=== PATIENT | male | born 1950 | race Caucasian/White ===

== ENCOUNTER → 2017-11-04 16:08 | Outpatient (CLI) | payer MEDICARE, OTHER, SELFPAY ==
[2017-11-04 17:34] LABS: BUN 21 mg/dL (7-18); Creatinine, Serum 1.16 mg/dL (0.70-1.30); Glucose 85 mg/dL (74-106)
[2017-11-04 17:35] LABS: ALB/GLOB Ratio 1.2 RATIO (0.9-2.4); AST(SGOT) 53 U/L (15-37); Alanine Aminotransfer ALT/SGPT 44 U/L (16-61); Albumin, Serum 3.8 g/dL (3.2-5.0); Alkaline Phosphatase 102 U/L (45-117); Anion Gap 7 (5-15); BUN/Creat Ratio 18.1 RATIO (10-20); Calcium,Total 8.7 mg/dL (8.5-10.1); Chloride 109 mmol/L (98-107); EST Glomerular Filtration Rate 67 mL/min (>60); Est Glom Filt Rate - Afr Amer 81 mL/min (>60); Globulin 3.1 g/dL (2.2-4.2); Potassium 4.2 mmol/L (3.5-5.1); Protein, Total 6.9 g/dL (6.4-8.2); Sodium Level 141 mmol/L (136-145); Thyroid Stim Hormone (TSH) 3.73 uIU/mL (0.358-3.74)
[2017-11-04 17:37] LABS: Vitamin D,25 Hydroxy 13.9 ng/mL (29.95-100.01)
[2017-11-04 17:56] LABS: Absolute Neutrophil Count 4.7 X10^3/uL (2.0-7.7); Basophil# 0.05 X10^3/uL; Basophil% 0.7 % (0-1); Eosinophil# 0.22 X10^3/uL; Eosinophils% 3.1 % (0-5); Hematocrit 51.4 % (40-54); Lymphocyte % 19.5 % (19-41); Mean Corp Hgb Conc 35.2 g/gl (32-36); Mean Corpuscular Hgb 29.5 pg (27.0-32.0); Mean Corpuscular Volume 83.8 fL (80-94); Mean Platelet Vol. 10.6 fl (6.2-12.0); Monocyte# 0.75 X10^3/uL; Monocyte% 10.4 % (0-10); Neutrophil # 4.73 X10^3/uL (2.7-7.7); Neutrophil % 65.7 % (47-70); Platelet Count 208 K/mm3 (150-450); RBC Distribution Width SD 42.9 fl (35.1-43.9); Red Blood Count 6.13 M/mm3 (4.6-6.2); White Blood Count 7.2 K/mm3 (4.4-11.0)
[2017-11-04 18:04] LABS: Hemoglobin 18.1 g/dl (13.0-16.5); POSITIVE COUNT NO; POSITIVE DIFFERENTIAL NO; POSITIVE MORPHOLOGY NO
== END ==
PROVIDERS: Family Provider Family Medicine Geriatric Medicine; PCP Family Medicine Geriatric Medicine; Visit Provider Family Medicine Geriatric Medicine
DX: E23.6 Other disorders of pituitary gland (principal); E55.9 Vitamin D deficiency, unspecified; R53.83 Other fatigue
CPT/HCPCS: 36415; 80053; 82306; 84403; 84443; 85025

== ENCOUNTER → 2017-11-12 06:56 | Outpatient (CLI) | payer MEDICARE, OTHER, SELFPAY ==
--- NOTE | 2017-11-12 07:02 | ECHOD_ITS ---
Reason For Study: ATRIAL SEPTAL DEFECT Left Ventricle Normal LV size. Left ventricular systolic function is normal. The estimated ejection fraction is 65 %. Unable to assess diastolic dysfunction. No regional wall motion abnormalities noted. Right Ventricle Normal RV size. Normal systolic function. Atria The left atrium is mildly enlarged. Normal right atrium. No doppler evidence for ASD. Mitral Valve There is no mitral annular calcification. Normal mitral valve. Trivial mitral valve insufficiency. Tricuspid Valve Normal tricuspid valve. Trivial tricuspid valve insufficiency. Right ventricular systolic pressure estimated to be 27 mmHg. Aortic Valve Trisinus/trileaflet aortic valve. Normal aortic valve. Pulmonic Valve Normal pulmonic valve. Trivial pulmonic valve insufficiency. Great Vessels Borderline enlarged ascending aorta. Pericardium/Pleural No pericardial effusion. MMode/2D Measurements & Calculations LVIDd: 4.9 cm IVSd: 0.99 cm Ao root diam: 3.6 cm LVIDs: 3.3 cm LVPWd: 1.1 cm LA dimension: 4.2 cm RVDd: 3.7 cm FS: 33.5 % LAV(MOD-bp): 36.7 ml LA A4 area: 15.3 cm2 RA A4 area: 15.9 cm2 LAV(MOD-bp) Indexed: 15.8 ml/m2 LAV(MOD-sp2): 29.9 ml LAV(MOD-sp4): 39.0 ml Doppler Measurements & Calculations MV E max thai: 79.3 cm/sec Lat Peak E' Thai: 6.6 cm/sec Med Peak E' Thai: 6.7 cm/sec MV A max thai: 85.8 cm/sec E/E' lat: 11.9 E/E' med: 11.8 MV E/A: 0.93 Ao V2 max: 157.3 cm/sec LV V1 max: 110.4 cm/sec PA V2 max: 121.8 cm/sec Ao max P.9 mmHg LV V1 max P.9 mmHg TR max thai: 244.5 cm/sec TR max P.0 mmHg Interpretation Summary Left ventricular systolic function is normal. The estimated ejection fraction is 65 %. The left atrium is mildly enlarged. Trivial mitral valve insufficiency. Trivial tricuspid valve insufficiency. Trivial pulmonic valve insufficiency. Borderline enlarged ascending aorta. Right ventricular systolic pressure estimated to be 27 mmHg. Unable to assess diastolic dysfunction. Ordering Physician: Gianni Beckham Referring Physician: MAHENDRA KYLE CHI Performed By: Renetta Yang, STEPHANIECS, RVT
--- NOTE | 2017-11-12 12:42 | STRESSREP ---
Stress Test Report Date: 11/12/2017 Procedure: Exercise tolerance test/imaging study Indications: Chest pain Consent: Per the patient Procedure: The patient exercised on a Aric protocol for 7 minutes completing Stage II and 1 minute of Stage III achieving a peak heart rate of 141 bpm (92 % predicted maximal heart rate) with a peak blood pressure 220/98 mmHg and a peak MET capacity of 8 METs. The baseline ECG demonstrated sinus bradycardia. The peak exercise ECG demonstrated no obvious ECG changes. There were no cardiac dysrhythmias pretest, during exercise, or recovery. The functional capacity was considered average. There was no complaint of chest discomfort during exercise or recovery. The examination was discontinued secondary to dyspnea. Impression: 1. Technically adequate (percent predicted maximal heart rate greater than 85%) exercise tolerance test 2. Peak exercise ECG with no obvious ECG changes 3. No cardiac dysrhythmias pretest, during exercise, or recovery. 4. Nuclear images pending Myocardial perfusion imaging study: Technique: The patient was injected with 14.8 mCi of technetium 99m Cardiolite and subsequently rest SPECT Cardiolite nuclear imaging was obtained in the horizontal long, vertical long, and short axis views. The patient exercised on a Aric protocol for 7 minutes completing Stage II and 1 minute of Stage III achieving a peak heart rate of 141 bpm (92 % predicted maximal heart rate) with a peak blood pressure 220/98 mmHg and a peak MET capacity of 8 METs. The patient was injected with 44.3 mCi of technetium 99m Cardiolite and subsequently stress SPECT Cardiolite nuclear imaging was obtained in the horizontal long, vertical long, and short axis views. A gated Cardiolite study at peak stress was obtained. Interpretation: Rest and stress SPECT Cardiolite nuclear imaging status post realignment, normalization, and attenuation correction, demonstrates the appearance of relative uniform tracer uptake and myocardial perfusion appearing within normal limits. There is end systolic thickening and brightening. The gated Cardiolite study demonstrates myocardial thickening and inward wall motion. The reported LVEF is 63 %. Impression: 1. Rest and stress SPECT Cardiolite nuclear imaging demonstrate relative uniform tracer uptake and myocardial perfusion appearing within normal limits. 2. The gated Cardiolite study reports an LVEF of 63 %. This note was generated with TeamRockation software. It may contain incorrect words, spelling, and punctuation that were not noted in checking the note before signing.
--- NOTE | 2017-11-12 12:46 | STRESSREP_ITS ---
Stress Test Report Date: 11/12/2017 Procedure: Exercise tolerance test/imaging study Indications: Chest pain Consent: Per the patient Procedure: The patient exercised on a Aric protocol for 7 minutes completing Stage II and 1 minute of Stage III achieving a peak heart rate of 141 bpm (92 % predicted maximal heart rate) with a peak blood pressure 220/98 mmHg and a peak MET capacity of 8 METs. The baseline ECG demonstrated sinus bradycardia. The peak exercise ECG demonstrated no obvious ECG changes. There were no cardiac dysrhythmias pretest, during exercise, or recovery. The functional capacity was considered average. There was no complaint of chest discomfort during exercise or recovery. The examination was discontinued secondary to dyspnea. Impression: 1. Technically adequate (percent predicted maximal heart rate greater than 85% ) exercise tolerance test 2. Peak exercise ECG with no obvious ECG changes 3. No cardiac dysrhythmias pretest, during exercise, or recovery. 4. Nuclear images pending Myocardial perfusion imaging study: Technique: The patient was injected with 14.8 mCi of technetium 99m Cardiolite and subsequently rest SPECT Cardiolite nuclear imaging was obtained in the horizontal long, vertical long, and short axis views. The patient exercised on a Aric protocol for 7 minutes completing Stage II and 1 minute of Stage III achieving a peak heart rate of 141 bpm (92 % predicted maximal heart rate) with a peak blood pressure 220/98 mmHg and a peak MET capacity of 8 METs. The patient was injected with 44.3 mCi of technetium 99m Cardiolite and subsequently stress SPECT Cardiolite nuclear imaging was obtained in the horizontal long, vertical long, and short axis views. A gated Cardiolite study at peak stress was obtained. Interpretation: Rest and stress SPECT Cardiolite nuclear imaging status post realignment, normalization, and attenuation correction, demonstrates the appearance of relative uniform tracer uptake and myocardial perfusion appearing within normal limits. There is end systolic thickening and brightening. The gated Cardiolite study demonstrates myocardial thickening and inward wall motion. The reported LVEF is 63 %. Impression: 1. Rest and stress SPECT Cardiolite nuclear imaging demonstrate relative uniform tracer uptake and myocardial perfusion appearing within normal limits. 2. The gated Cardiolite study reports an LVEF of 63 %. This note was generated with Joyentation software. It may contain incorrect words, spelling, and punctuation that were not noted in checking the note before signing.
--- NOTE | 2017-11-13 05:50 | LEAS_ITS ---
Arterial Study - Arterial Study Arterial Study: Bilateral lower extremity noninvasive arterial exam at rest Patient with complaint of claudication and toe numbness left greater than right Right lower extremity The right PT and DP ankle-brachial indices at rest are 1.2 and 1.05 respectively with a digital index of 1.03. The right posterior tibial and dorsalis pedis Doppler waveforms are triphasic. Volume pulse recordings do not demonstrate amplification at the calf the ankle and digital waveforms however are well maintained. Left lower extremity. The left PT and DP ankle-brachial indices at rest are 1.13 and 1.07 respectively with a digital index of 0.94. The left posterior tibial and dorsalis pedis waveforms are triphasic. Volume pulse recordings do not demonstrate application the calf but the ankle and digital waveforms are well maintained. Impression Normal bilateral lower examined noninvasive arterial exam at rest with well- maintained digital indices and waveforms Nigel Ho M.D., F.A.C.S.
== END ==
PROVIDERS: Family Provider Family Medicine Geriatric Medicine; PCP Family Medicine Geriatric Medicine; Visit Provider Internal Medicine Cardiovascular Disease
DX: I51.0 Cardiac septal defect, acquired (principal); I73.9 Peripheral vascular disease, unspecified; I10 Essential (primary) hypertension; E78.5 Hyperlipidemia, unspecified; R06.02 Shortness of breath; Z79.899 Other long term (current) drug therapy
CPT/HCPCS: 78452; 93017; 93306; 93923; A9500; A4216

== ENCOUNTER → 2017-12-05 15:52 | Outpatient (CLI) | payer MEDICARE, OTHER, SELFPAY ==
--- NOTE | 2017-12-05 16:10 | CT_ITS ---
STUDY: CT ABDOMEN AND PELVIS WITH CONTRAST REASON FOR EXAM: Male, 67 years old. Right-sided pain RADIATION DOSAGE (If Supplied By Facility): CTDIvol = ( 18.07 ) mGy, DLP = ( 1252.85 ) mGycm TECHNIQUE: Transaxial images were obtained from the dome of the diaphragm to the symphysis pubis without oral contrast. 100ML ml of Isovue 300 contrast was administered. Sagittal and coronal images were reconstructed. Individualized dose optimization techniques were used for this CT. COMPARISON: None. FINDINGS: The visualized lung bases are clear. The visualized portions of the heart and pericardium are within normal limits. There are no calcified gallstones present. The liver is within normal limits. There are no suspicious hepatic lesions. The spleen is normal in size. The pancreas is within normal limits. The adrenal glands are within normal limits. There are no obstructing renal stones. There is no hydronephrosis. There is a cyst in the left kidney. Normal visualized stomach. There is no bowel obstruction or inflammation. The appendix is visualized and appears normal. The aorta is normal in caliber. There is no abdominal or pelvic free air, free fluid, fluid collection or lymphadenopathy. There are no destructive osseous lesions. CT/Abdomen/Pelvis WITH Contrast IMPRESSION: No acute abdominal or pelvic pathology. Electronically Signed: Pankaj Garrett, at 18:49 EDT Tel , Service support ,
[2017-12-05 16:14] LABS: Eosinophils% 2.7 % (0-5); Hematocrit 49.3 % (40-54); Hemoglobin 17.4 g/dl (13.0-16.5); Lymphocyte % 23.8 % (19-41); Mean Corp Hgb Conc 35.3 g/gl (32-36); Mean Corpuscular Hgb 29.3 pg (27.0-32.0); Mean Platelet Vol. 10.3 fl (6.2-12.0); Monocyte% 9.7 % (0-10); POSITIVE COUNT NO; POSITIVE DIFFERENTIAL NO; POSITIVE MORPHOLOGY NO; Platelet Count 204 K/mm3 (150-450); RBC Distribution Width CV 12.7 % (11.6-14.6); RBC Distribution Width SD 38.8 fl (35.1-43.9); Red Blood Count 5.94 M/mm3 (4.6-6.2); White Blood Count 6.4 K/mm3 (4.4-11.0)
[2017-12-05 16:15] LABS: Absolute Lymphocyte Count 1.52 X10^3/ul (0.83-4.51); Basophil# 0.03 X10^3/uL; Basophil% 0.5 % (0-1); Eosinophil# 0.17 X10^3/uL; Lymphocyte # 1.52 X10^3/ul (4.0); Monocyte# 0.62 X10^3/uL; Neutrophil # 4.03 X10^3/uL (2.7-7.7)
[2017-12-05 16:35] LABS: ALB/GLOB Ratio 1.2 RATIO (0.9-2.4); AST(SGOT) 66 U/L (15-37); Alanine Aminotransfer ALT/SGPT 66 U/L (16-61); Albumin, Serum 3.8 g/dL (3.2-5.0); Alkaline Phosphatase 103 U/L (45-117); Anion Gap 5 (5-15); BUN 19 mg/dL (7-18); BUN/Creat Ratio 18.3 RATIO (10-20); Calcium,Total 9.3 mg/dL (8.5-10.1); Chloride 108 mmol/L (98-107); Creatinine, Serum 1.04 mg/dL (0.70-1.30); EST Glomerular Filtration Rate 76 mL/min (>60); Est Glom Filt Rate - Afr Amer 92 mL/min (>60); Globulin 3.2 g/dL (2.2-4.2); Glucose 93 mg/dL (74-106); Potassium 4.7 mmol/L (3.5-5.1); Sodium Level 139 mmol/L (136-145)
[2017-12-07 10:59] LABS: H. Pylori Antibody (IgG) 3.92 (0.00-0.79)
== END ==
PROVIDERS: Family Provider Family Medicine Geriatric Medicine; PCP Family Medicine Geriatric Medicine; Visit Provider Family Medicine Geriatric Medicine
DX: R10.9 Unspecified abdominal pain (principal)
CPT/HCPCS: 36415; 74177; 80053; 85025; 86677; Q9967

== ENCOUNTER → 2017-12-06 11:04 | Outpatient (CLI) | payer MEDICARE, OTHER, SELFPAY ==
--- NOTE | 2017-12-06 11:09 | US_ITS ---
STUDY: ABDOMINAL ULTRASOUND - RIGHT UPPER QUADRANT REASON FOR VISIT: Male, 67 years old. Right upper quadrant pain. Nausea. TECHNIQUE: Ultrasound evaluation of the right upper quadrant was performed with real-time and static hull-scale imaging. TECHNICAL QUALITY: Adequate. COMPARISON: Comparison is made with prior CT scan the abdomen dated December 05, 2017. FINDINGS: Liver: The liver measures 16.9 cm. There is increased echogenicity consistent with fatty infiltration. The bile ducts are within normal limits. There is hepatic color flow. The direction of portal flow is hepatopetal. There is no demonstrated mass lesion. Gallbladder: Normal distended gallbladder. The gallbladder wall measures 1.5 mm. There is a negative sonographic Pimentel's sign. There is no pericholecystic fluid. There are no gallstones. Common Bile Duct (C.B.D.): The common bile duct measures 2.8 mm. Pancreas: Normal size of the head, body and tail of the pancreas. There is normal echogenicity of the pancreas. There is no demonstrated pancreatic mass or cyst. Right Kidney: Normal size of the right kidney. The right kidney measures 11.8 cm x 5.2 cm x 6.5 cm. Normal renal cortex. The right cortex measures 1.8 cm. There is no demonstrated renal mass or cyst. There is no right hydronephrosis. US/Abdomen Limited IMPRESSION: Fatty infiltration of the liver. Electronically Signed: Sam De Los Santos MD at 12:27 EDT Tel [phone], Service support ,
== END ==
PROVIDERS: Family Provider Family Medicine Geriatric Medicine; PCP Family Medicine Geriatric Medicine; Visit Provider Family Medicine Geriatric Medicine
DX: K76.0 Fatty (change of) liver, not elsewhere classified (principal)
CPT/HCPCS: 76705

== ENCOUNTER → 2018-01-16 16:01 | Outpatient (CLI) | payer MEDICARE, OTHER, SELFPAY ==
--- NOTE | 2018-01-16 16:06 | RAD_ITS ---
STUDY: X-RAY - ABDOMEN/PELVIS REASON FOR EXAM: Male, 67 years old. Abdominal pain. Nausea/vomiting. TECHNIQUE: For frontal images of the abdomen were obtained. COMPARISON: None. FINDINGS: Normal visualized lung bases. There is an unremarkable bowel gas pattern. There is no demonstrated free abdominal air. The visualized liver, spleen and kidneys are grossly normal in size and morphology. Normal soft tissue structures. Normal visualized osseous structures. RAD/Abd Inc Decub and/or Erect IMPRESSION: Nonspecific bowel gas pattern. Electronically Signed: Purvi Patrick MD at 16:22 EDT Tel , Service support ,
== END ==
PROVIDERS: Family Provider Family Medicine Geriatric Medicine; PCP Family Medicine Geriatric Medicine; Visit Provider Family Medicine Geriatric Medicine
DX: R10.9 Unspecified abdominal pain (principal)
CPT/HCPCS: 74019

== ENCOUNTER → 2018-01-21 08:07 | Outpatient (CLI) | payer MEDICARE, OTHER, SELFPAY ==
--- NOTE | 2018-01-21 08:10 | RAD_ITS ---
STUDY: AIR-CONTRAST UPPER GI SERIES AND SMALL BOWEL FOLLOW-THROUGH EXAMINATION. REASON FOR EXAM: Male, 67 years old. Abdominal pain and tenderness. History of positive H. pylori. FLUOROSCOPY TIME (if supplied): (1:36) minutes/seconds TECHNIQUE: The patient ingested barium. Multiple images of the esophagus, stomach and duodenum were obtained. Following this, a small bowel follow-through examination was performed. COMPARISON: None. FINDINGS: The esophagus is unremarkable. There is no evidence of a obstruction. No mass lesion is seen. There is no evidence of gastroesophageal reflux. The stomach and duodenum are unremarkable. There is no evidence of ulceration. A small bowel follow-through examination was then performed. The transit time is normal. There is no evidence of intrinsic or extrinsic small bowel disease. The terminal ileum is unremarkable. RAD/Upper GI/w Small Bowel IMPRESSION: Unremarkable examination. Electronically Signed: Sam De Los Santos MD at 15:27 EDT Tel [phone], Service support ,
== END ==
PROVIDERS: Family Provider Family Medicine Geriatric Medicine; PCP Family Medicine Geriatric Medicine; Visit Provider Family Medicine Geriatric Medicine
DX: R10.13 Epigastric pain (principal)
CPT/HCPCS: 74249

== ENCOUNTER → 2018-04-15 15:55 | Outpatient (CLI) | payer MEDICARE, OTHER, SELFPAY ==
--- NOTE | 2018-04-15 16:29 | RAD_ITS ---
STUDY: X-RAY - ABDOMEN/PELVIS REASON FOR EXAM: Male, 67 years old. Pain diarrhea TECHNIQUE: 5 images AP supine and upright views of the abdomen and pelvis. COMPARISON: December 05, 2017 CT scan abdomen and pelvis CT scan abdomen and pelvis FINDINGS: Normal visualized lung bases. There is mild to moderate gas and stool in the colon. There is no demonstrated free abdominal air. The visualized liver, spleen and kidneys are grossly normal in size and morphology. Normal soft tissue structures. Normal visualized osseous structures. RAD/Abd Inc Decub and/or Erect IMPRESSION: Normal x-ray examination of the abdomen and pelvis. Electronically Signed: Alessandra Llanos MD at 16:51 EDT Tel , Service support ,
[2018-04-15 16:48] LABS: Absolute Lymphocyte Count 1.33 X10^3/ul (0.83-4.51); Absolute Neutrophil Count 2.9 X10^3/uL (2.0-7.7); Basophil# 0.03 X10^3/uL; Basophil% 0.6 % (0-1); Eosinophil# 0.28 X10^3/uL; Eosinophils% 5.5 % (0-5); Hematocrit 42.3 % (40-54); Hemoglobin 14.5 g/dl (13.0-16.5); Lymphocyte # 1.33 X10^3/ul (4.0); Mean Corp Hgb Conc 34.3 g/gl (32-36); Mean Corpuscular Hgb 29.4 pg (27.0-32.0); Mean Corpuscular Volume 85.8 fL (80-94); Mean Platelet Vol. 10.4 fl (6.2-12.0); Monocyte% 11.7 % (0-10); Neutrophil # 2.86 X10^3/uL (2.7-7.7); Neutrophil % 55.8 % (47-70); Platelet Count 211 K/mm3 (150-450); RBC Distribution Width CV 12.7 % (11.6-14.6); RBC Distribution Width SD 38.9 fl (35.1-43.9); Red Blood Count 4.93 M/mm3 (4.6-6.2); White Blood Count 5.1 K/mm3 (4.4-11.0)
[2018-04-15 16:50] LABS: POSITIVE COUNT NO; POSITIVE DIFFERENTIAL NO; POSITIVE MORPHOLOGY NO
[2018-04-15 17:13] LABS: ALB/GLOB Ratio 1.1 RATIO (0.9-2.4); AST(SGOT) 60 U/L (15-37); Alanine Aminotransfer ALT/SGPT 50 U/L (16-61); Albumin, Serum 3.6 g/dL (3.2-5.0); Alkaline Phosphatase 91 U/L (45-117); Anion Gap 5 (5-15); BUN 23 mg/dL (7-18); BUN/Creat Ratio 18.9 RATIO (10-20); Chloride 105 mmol/L (98-107); Creatinine, Serum 1.22 mg/dL (0.70-1.30); EST Glomerular Filtration Rate 63 mL/min (>60); Est Glom Filt Rate - Afr Amer 76 mL/min (>60); Globulin 3.2 g/dL (2.2-4.2); Glucose 86 mg/dL (74-106); Potassium 4.3 mmol/L (3.5-5.1); Protein, Total 6.8 g/dL (6.4-8.2); Sodium Level 139 mmol/L (136-145); Thyroid Stim Hormone (TSH) 3.63 uIU/mL (0.358-3.74)
== END ==
PROVIDERS: Family Provider Family Medicine Geriatric Medicine; PCP Family Medicine Geriatric Medicine; Referring Provider Family Medicine Geriatric Medicine; Visit Provider Family Medicine Geriatric Medicine
DX: I10 Essential (primary) hypertension (principal); R10.9 Unspecified abdominal pain
CPT/HCPCS: 36415; 74019; 80053; 84443; 85025

== ENCOUNTER → 2018-05-07 15:52 | Outpatient (CLI) | payer MEDICARE, OTHER, SELFPAY ==
[2018-05-07 17:06] LABS: Absolute Lymphocyte Count 1.31 X10^3/ul (0.83-4.51); Absolute Neutrophil Count 2.4 X10^3/uL (2.0-7.7); Basophil# 0.02 X10^3/uL; Basophil% 0.4 % (0-1); Eosinophil# 0.21 X10^3/uL; Eosinophils% 4.7 % (0-5); Hemoglobin 14.5 g/dl (13.0-16.5); Lymphocyte # 1.31 X10^3/ul (4.0); Lymphocyte % 29.1 % (19-41); Mean Corp Hgb Conc 34.5 g/gl (32-36); Mean Corpuscular Hgb 29.8 pg (27.0-32.0); Mean Corpuscular Volume 86.2 fL (80-94); Mean Platelet Vol. 10.6 fl (6.2-12.0); Monocyte# 0.53 X10^3/uL; Monocyte% 11.8 % (0-10); Neutrophil # 2.41 X10^3/uL (2.7-7.7); Neutrophil % 53.6 % (47-70); Platelet Count 226 K/mm3 (150-450); RBC Distribution Width CV 12.4 % (11.6-14.6); RBC Distribution Width SD 38.6 fl (35.1-43.9); Red Blood Count 4.87 M/mm3 (4.6-6.2); White Blood Count 4.5 K/mm3 (4.4-11.0)
[2018-05-07 17:10] LABS: ALB/GLOB Ratio 1.3 RATIO (0.9-2.4); AST(SGOT) 52 U/L (15-37); Alanine Aminotransfer ALT/SGPT 52 U/L (16-61); Albumin, Serum 3.8 g/dL (3.2-5.0); Alkaline Phosphatase 92 U/L (45-117); Anion Gap 7 (5-15); BUN 18 mg/dL (7-18); BUN/Creat Ratio 14.5 RATIO (10-20); Calcium,Total 9.1 mg/dL (8.5-10.1); Chloride 108 mmol/L (98-107); Creatinine, Serum 1.24 mg/dL (0.70-1.30); EST Glomerular Filtration Rate 62 mL/min (>60); Est Glom Filt Rate - Afr Amer 75 mL/min (>60); Glucose 83 mg/dL (74-106); PSA,Total - Annual Screen 1.07 ng/mL (0.00-4.00); Potassium 4.2 mmol/L (3.5-5.1); Protein, Total 6.8 g/dL (6.4-8.2); Sodium Level 142 mmol/L (136-145); Thyroid Stim Hormone (TSH) 3.71 uIU/mL (0.358-3.74)
[2018-05-07 17:25] LABS: POSITIVE COUNT NO; POSITIVE DIFFERENTIAL NO; POSITIVE MORPHOLOGY NO
[2018-05-07 17:32] LABS: Vitamin D,25 Hydroxy 35.7 ng/mL (29.95-100.01)
== END ==
PROVIDERS: Family Provider Family Medicine Geriatric Medicine; PCP Family Medicine Geriatric Medicine; Visit Provider Family Medicine Geriatric Medicine
DX: E23.6 Other disorders of pituitary gland (principal); E55.9 Vitamin D deficiency, unspecified; R53.83 Other fatigue; Z12.5 Encounter for screening for malignant neoplasm of prostate
CPT/HCPCS: 36415; 80053; 82306; 84153; 84403; 84443; 85025; G0103

== ENCOUNTER → 2018-08-21 15:23 | Outpatient (CLI) | payer MEDICARE, OTHER, SELFPAY ==
--- NOTE | 2018-08-21 15:34 | RAD_ITS ---
STUDY: X-RAY - RIGHT KNEE REASON FOR EXAM: Male, 68 years old. Pain, osteoarthritis. TECHNIQUE: 4 view(s) of the knee, 2 of which are labeled as weightbearing. COMPARISON: None. FINDINGS: There is early lateral periarticular spurring of the medial femoral condyle. Mild cortical irregularity at the lateral margin of the proximal tibial metaphysis. Normal visualized proximal fibula. Early lateral periarticular spurring of the patella and borderline paratracheal spurring at the base of the patella. There is no demonstrated destructive osseous lesion or acute fracture. There is degenerative arthrosis of the medial femorotibial compartment with mild to moderate joint space narrowing. Normal lateral femorotibial compartment. There is mild to moderate degenerative arthrosis of the patellofemoral articulation, as well as prominent laterally. Normal proximal tibiofibular articulation. There is no demonstrated joint effusion. There is minor prepatellar and anteromedial superficial soft tissue swelling. RAD/Knee 4 or More Views IMPRESSION: Mild degenerative arthrosis of the right knee, as described. Electronically Signed: Yann Andrade MD at 12:43 EST , Service support ,
--- NOTE | 2018-08-21 15:40 | RAD_ITS ---
STUDY: X-RAY - LEFT KNEE REASON FOR EXAM: Male, 68 years old. Pain, osteoarthritis. TECHNIQUE: 4 view(s) of the knee, 2 labeled as upright. COMPARISON: None. FINDINGS: There is early periarticular spurring along the intercondylar margins of distal femur. Early periarticular spurring of the tibial plateaus and mild spurring of the lateral tibial spine Normal visualized proximal fibula. Borderline periarticular spurring at the inferolateral articular margin of the patella. There is no demonstrated destructive osseous lesion or acute fracture. There is degenerative arthrosis of the medial femorotibial compartment with moderate joint space narrowing. Normal lateral femorotibial compartment. Normal patellofemoral articulation. Normal proximal tibiofibular articulation. There is no significant joint effusion. The soft tissue structures are unremarkable. RAD/Knee 4 or More Views IMPRESSION: Mild degenerative changes of the left knee, as described. No acute osseous abnormality. Electronically Signed: Yann Andrade MD at 14:53 EST , Service support ,
--- NOTE | 2018-08-21 15:46 | RAD_ITS ---
STUDY: X-RAY - RIGHT SHOULDER REASON FOR EXAM: Male, 68 years old. Chronic shoulder pain. TECHNIQUE: 4 view(s) of the shoulder, including frontal internal and external rotation views. COMPARISON: None. FINDINGS: There is moderate degenerative arthrosis of the glenohumeral articulation. Early degenerative arthrosis of the acromioclavicular joint. Normal acromion. There is degenerative inferior periarticular spurring of the humeral head Normal soft tissues. There is no demonstrated fracture. Normal visualized pulmonary apex. RAD/Shoulder min 2 Views IMPRESSION: Degenerative arthrosis of the right glenohumeral articulation and, to a lesser degree, at the right acromioclavicular joint. Electronically Signed: Yann Andrade MD at 12:38 EST , Service support ,
--- NOTE | 2018-08-21 15:52 | RAD_ITS ---
STUDY: X-RAY - LEFT SHOULDER REASON FOR EXAM: Male, 68 years old. Chronic shoulder pain. TECHNIQUE: 4 view(s) of the shoulder, including frontal internal and external rotation views. COMPARISON: None. FINDINGS: There is moderate degenerative arthrosis of the glenohumeral articulation. Normal acromioclavicular joint. Normal acromion. There is degenerative inferior periarticular spurring of the humeral head A cluster of 1 cm round rim calcific densities projecting anterior to the proximal humeral diaphysis suggests chronic ossific bursitis. There is no demonstrated fracture. Normal visualized pulmonary apex. RAD/Shoulder min 2 Views IMPRESSION: Degenerative arthrosis of the left glenohumeral articulation with additional finding of ossific bursitis. Electronically Signed: Yann Andrade MD at 12:29 EST , Service support ,
== END ==
PROVIDERS: Family Provider Family Medicine Geriatric Medicine; PCP Family Medicine Geriatric Medicine; Referring Provider Family Medicine Geriatric Medicine; Visit Provider Family Medicine Geriatric Medicine
DX: M17.0 Bilateral primary osteoarthritis of knee (principal); M19.012 Primary osteoarthritis, left shoulder; M19.011 Primary osteoarthritis, right shoulder; M75.52 Bursitis of left shoulder
CPT/HCPCS: 73030; 73564

== ENCOUNTER → 2018-09-08 16:43 | Outpatient (CLI) | payer MEDICARE, OTHER, SELFPAY ==
--- NOTE | 2018-09-08 16:48 | RAD_ITS ---
STUDY: X-RAY - ABDOMEN/PELVIS REASON FOR EXAM: Male, 68 years old. Abdominal pain, excessive flatulence, diarrhea. TECHNIQUE: AP supine and upright views of the abdomen and pelvis on 5 images. COMPARISON: AP supine and upright views of the abdomen and pelvis on 5 images April 15, 2018; upper GI series with small bowel follow-through January 21, 2018; right upper quadrant ultrasound December 06, 2017; CT abdomen and pelvis December 05, 2017. FINDINGS: Normal visualized lung bases. There is an unremarkable bowel gas pattern. There is no demonstrated free abdominal air. The visualized liver, spleen and kidneys are grossly normal in size and morphology. Normal soft tissue structures. There are stable multilevel degenerative changes of the visualized spine as well as mild degenerative arthroses of the bilateral sacroiliac joints and pubic symphysis. RAD/Abd Inc Decub and/or Erect IMPRESSION: No demonstrated acute abnormality of the abdomen and pelvis. Electronically Signed: Yann Andrade MD at 16:50 EST , Service support ,
== END ==
PROVIDERS: Family Provider Family Medicine Geriatric Medicine; PCP Family Medicine Geriatric Medicine; Referring Provider Internal Medicine Gastroenterology; Visit Provider Internal Medicine Gastroenterology
DX: R10.9 Unspecified abdominal pain (principal); R14.0 Abdominal distension (gaseous)
CPT/HCPCS: 74019

== ENCOUNTER → 2018-11-10 15:11 | Outpatient (CLI) | payer MEDICARE, OTHER, SELFPAY ==
[2018-11-10 17:09] LABS: Absolute Lymphocyte Count 1.15 X10^3/ul (0.83-4.51); Absolute Neutrophil Count 7.9 X10^3/uL (2.0-7.7); Basophil# 0.02 X10^3/uL; Basophil% 0.2 % (0-1); Eosinophil# 0.03 X10^3/uL; Eosinophils% 0.3 % (0-5); Hematocrit 43.4 % (40-54); Hemoglobin 14.7 g/dl (13.0-16.5); Lymphocyte # 1.15 X10^3/ul (4.0); Lymphocyte % 11.7 % (19-41); Mean Corp Hgb Conc 33.9 g/gl (32-36); Mean Corpuscular Hgb 29.6 pg (27.0-32.0); Mean Corpuscular Volume 87.3 fL (80-94); Mean Platelet Vol. 10.3 fl (6.2-12.0); Monocyte# 0.71 X10^3/uL; Monocyte% 7.2 % (0-10); Neutrophil # 7.88 X10^3/uL (2.7-7.7); Neutrophil % 79.8 % (47-70); Platelet Count 254 K/mm3 (150-450); RBC Distribution Width CV 13.2 % (11.6-14.6); RBC Distribution Width SD 41.7 fl (35.1-43.9); Red Blood Count 4.97 M/mm3 (4.6-6.2); White Blood Count 9.9 K/mm3 (4.4-11.0)
[2018-11-10 17:10] LABS: POSITIVE COUNT NO; POSITIVE DIFFERENTIAL NO; POSITIVE MORPHOLOGY NO
[2018-11-10 17:24] LABS: Vitamin D,25 Hydroxy 8.8 ng/mL (29.95-100.01)
[2018-11-10 17:25] LABS: ALB/GLOB Ratio 1.2 RATIO (0.9-2.4); AST(SGOT) 42 U/L (15-37); Alanine Aminotransfer ALT/SGPT 64 U/L (16-61); Albumin, Serum 3.5 g/dL (3.2-5.0); Alkaline Phosphatase 94 U/L (45-117); Anion Gap 4 (5-15); BUN 24 mg/dL (7-18); Chloride 110 mmol/L (98-107); Creatinine, Serum 1.09 mg/dL (0.70-1.30); EST Glomerular Filtration Rate 71 mL/min (>60); Est Glom Filt Rate - Afr Amer 86 mL/min (>60); Globulin 2.9 g/dL (2.2-4.2); Glucose 107 mg/dL (74-106); Potassium 4.1 mmol/L (3.5-5.1); Protein, Total 6.4 g/dL (6.4-8.2); Sodium Level 142 mmol/L (136-145); Thyroid Stim Hormone (TSH) 1.89 uIU/mL (0.358-3.74)
== END ==
PROVIDERS: Family Provider Family Medicine Geriatric Medicine; PCP Family Medicine Geriatric Medicine; Visit Provider Family Medicine Geriatric Medicine
DX: E23.6 Other disorders of pituitary gland (principal); E55.9 Vitamin D deficiency, unspecified; R53.83 Other fatigue
CPT/HCPCS: 36415; 80053; 82306; 84403; 84443; 85025

== ENCOUNTER → 2019-05-11 16:55 | Outpatient (CLI) | payer MEDICARE, OTHER, SELFPAY ==
[2018-11-19 15:00] VITALS: BMI 29.6
[2019-05-11 17:48] LABS: Absolute Lymphocyte Count 1.41 X10^3/uL (0.83-4.51); Absolute Neutrophil Count 3.8 X10^3/uL (2.0-7.7); Basophil# 0.06 X10^3/uL; Eosinophil# 0.17 X10^3/uL; Eosinophils% 2.7 % (0-5); Lymphocyte # 1.41 X10^3/ul (4.0); Lymphocyte % 22.4 % (19-41); Mean Corp Hgb Conc 32.5 g/dL (32-36); Mean Corpuscular Hgb 27.7 pg (27.0-32.0); Mean Corpuscular Volume 85.1 fL (80-94); Mean Platelet Vol. 10.6 fl (6.2-12.0); Monocyte# 0.86 X10^3/uL; Monocyte% 13.7 % (0-10); NRBC Flagged by Analyzer 0 % (0-5); Neutrophil # 3.76 X10^3/uL (2.7-7.7); Neutrophil % 59.6 % (47-70); Platelet Count 199 K/mm3 (150-450); RBC Distribution Width CV 14.6 % (11.6-14.6); RBC Distribution Width SD 41.8 fl (35.1-43.9); Red Blood Count 6.83 M/mm3 (4.6-6.2); White Blood Count 6.3 K/mm3 (4.4-11.0)
[2019-05-11 18:11] LABS: Vitamin D,25 Hydroxy 30.8 ng/mL (29.95-100.01)
[2019-05-11 18:12] LABS: Hematocrit 58.1 % (40-54); Hemoglobin 18.9 g/dL (13.0-16.5)
[2019-05-11 18:28] LABS: ALB/GLOB Ratio 1.2 RATIO (0.9-2.4); AST(SGOT) 48 U/L (15-37); Alanine Aminotransfer ALT/SGPT 42 U/L (16-61); Albumin, Serum 3.8 g/dL (3.2-5.0); Alkaline Phosphatase 96 U/L (45-117); Anion Gap 5 (5-15); BUN 20 mg/dL (7-18); BUN/Creat Ratio 17.2 RATIO (10-20); Calcium,Total 9.3 mg/dL (8.5-10.1); Chloride 106 mmol/L (98-107); Creatinine, Serum 1.16 mg/dL (0.70-1.30); EST Glomerular Filtration Rate 66 mL/min (>60); Est Glom Filt Rate - Afr Amer 80 mL/min (>60); Globulin 3.1 g/dL (2.2-4.2); Glucose 92 mg/dL (74-106); PSA,Total - Annual Screen 2.19 ng/mL (0.00-4.00); Potassium 4.4 mmol/L (3.5-5.1); Protein, Total 6.9 g/dL (6.4-8.2); Sodium Level 136 mmol/L (136-145); Thyroid Stim Hormone (TSH) 3.03 uIU/mL (0.358-3.74)
== END ==
PROVIDERS: Family Provider Family Medicine Geriatric Medicine; PCP Family Medicine Geriatric Medicine; Visit Provider Family Medicine Geriatric Medicine
DX: E23.6 Other disorders of pituitary gland (principal); E55.9 Vitamin D deficiency, unspecified; I10 Essential (primary) hypertension; Z12.5 Encounter for screening for malignant neoplasm of prostate
CPT/HCPCS: 36415; 80053; 82306; 84153; 84403; 84443; 85025; G0103

== ENCOUNTER → 2019-06-08 16:42 | Outpatient (CLI) | payer MEDICARE, OTHER, SELFPAY ==
[2018-11-19 15:00] VITALS: BMI 29.6
[2019-06-08 17:40] LABS: Absolute Lymphocyte Count 1.67 X10^3/uL (0.83-4.51); Basophil# 0.05 X10^3/uL; Basophil% 0.5 % (0-1); Eosinophil# 0.11 X10^3/uL; Eosinophils% 1.1 % (0-5); Lymphocyte # 1.67 X10^3/ul (4.0); Mean Corp Hgb Conc 33.1 g/dL (32-36); Mean Corpuscular Hgb 28.1 pg (27.0-32.0); Mean Corpuscular Volume 84.9 fL (80-94); Mean Platelet Vol. 10.1 fl (6.2-12.0); Monocyte# 0.94 X10^3/uL; Monocyte% 9.6 % (0-10); NRBC Flagged by Analyzer 0 % (0-5); Neutrophil # 6.97 X10^3/uL (2.7-7.7); Neutrophil % 71.1 % (47-70); Platelet Count 295 K/mm3 (150-450); RBC Distribution Width CV 13.7 % (11.6-14.6); RBC Distribution Width SD 40.8 fl (35.1-43.9); Red Blood Count 6.55 M/mm3 (4.6-6.2); White Blood Count 9.8 K/mm3 (4.4-11.0)
[2019-06-08 18:26] LABS: Hematocrit 55.6 % (40-54); Hemoglobin 18.4 g/dL (13.0-16.5)
[2019-06-09 11:47] LABS: Pathologist Review Reviewed
== END ==
PROVIDERS: Family Provider Family Medicine Geriatric Medicine; PCP Family Medicine Geriatric Medicine; Visit Provider Family Medicine Geriatric Medicine
DX: I10 Essential (primary) hypertension (principal); R68.89 Other general symptoms and signs
CPT/HCPCS: 36415; 85025

== ENCOUNTER → 2019-07-09 16:17 | Outpatient (CLI) | payer MEDICARE, OTHER, SELFPAY ==
[2018-11-19 15:00] VITALS: BMI 29.6
[2019-07-09 16:58] LABS: Absolute Lymphocyte Count 1.46 X10^3/uL (0.83-4.51); Absolute Neutrophil Count 3.7 X10^3/uL (2.0-7.7); Basophil# 0.04 X10^3/uL; Basophil% 0.7 % (0-1); Eosinophil# 0.14 X10^3/uL; Eosinophils% 2.4 % (0-5); Hematocrit 52.4 % (40-54); Hemoglobin 17.3 g/dL (13.0-16.5); Lymphocyte # 1.46 X10^3/ul (4.0); Lymphocyte % 24.6 % (19-41); Mean Corpuscular Hgb 28.3 pg (27.0-32.0); Mean Corpuscular Volume 85.6 fL (80-94); Monocyte# 0.55 X10^3/uL; Monocyte% 9.3 % (0-10); NRBC Flagged by Analyzer 0 % (0-5); Neutrophil # 3.72 X10^3/uL (2.7-7.7); Neutrophil % 62.5 % (47-70); Platelet Count 195 K/mm3 (150-450); RBC Distribution Width CV 13.2 % (11.6-14.6); RBC Distribution Width SD 40.8 fl (35.1-43.9); Red Blood Count 6.12 M/mm3 (4.6-6.2); White Blood Count 5.9 K/mm3 (4.4-11.0)
== END ==
PROVIDERS: Family Provider Family Medicine Geriatric Medicine; PCP Family Medicine Geriatric Medicine; Visit Provider Family Medicine Geriatric Medicine
DX: I10 Essential (primary) hypertension (principal); R68.89 Other general symptoms and signs
CPT/HCPCS: 36415; 85025

== ENCOUNTER → 2019-08-31 10:17 | Outpatient (CLI) | payer MEDICARE, OTHER, SELFPAY ==
[2018-11-19 15:00] VITALS: BMI 29.6
--- NOTE | 2019-08-31 10:22 | RAD_ITS ---
STUDY: X-RAY - PELVIS REASON FOR EXAM: Male, 69 years old. BILATERAL HIP PAIN, HX ARTHRITIS. TECHNIQUE: One view of the pelvis was obtained. COMPARISON: None. FINDINGS: There is a non-specific bowel gas pattern. Normal visualized soft tissue structures. Normal bilateral iliac wings, sacroiliac joints and visualized sacrum. Normal visualized bilateral superior and inferior pubic rami. Normal pubic symphysis. Normal ischial tuberosities. Normal visualized right femoral head. Normal right acetabulum. Normal right hip joint. Normal visualized left femoral head. Normal left acetabulum. Normal left hip joint. RAD/Pelvis 1 or 2 Views IMPRESSION: Normal x-ray examination of the pelvis. Electronically Signed: Cullen Swann MD at 21:28 EST , Service support ,
[2019-08-31 12:14] LABS: Erythrocyte Sedimentation Rate 3 mm/hr (0-20)
[2019-08-31 12:20] LABS: Absolute Lymphocyte Count 1.43 X10^3/uL (0.83-4.51); Absolute Neutrophil Count 7.6 X10^3/uL (2.0-7.7); Basophil# 0.04 X10^3/uL; Basophil% 0.4 % (0-1); Eosinophil# 0.04 X10^3/uL; Eosinophils% 0.4 % (0-5); Hemoglobin 16.6 g/dL (13.0-16.5); Lymphocyte # 1.43 X10^3/ul (4.0); Lymphocyte % 13.6 % (19-41); Mean Corp Hgb Conc 33.2 g/dL (32-36); Mean Corpuscular Hgb 28.6 pg (27.0-32.0); Mean Corpuscular Volume 86.1 fL (80-94); Mean Platelet Vol. 10.1 fl (6.2-12.0); Monocyte% 8.6 % (0-10); NRBC Flagged by Analyzer 0 % (0-5); Neutrophil # 7.61 X10^3/uL (2.7-7.7); Neutrophil % 72.5 % (47-70); Platelet Count 237 K/mm3 (150-450); RBC Distribution Width CV 14.5 % (11.6-14.6); RBC Distribution Width SD 43.8 fl (35.1-43.9); Red Blood Count 5.81 M/mm3 (4.6-6.2); White Blood Count 10.5 K/mm3 (4.4-11.0)
[2019-08-31 12:36] LABS: ALB/GLOB Ratio 1.2 RATIO (0.9-2.4); AST(SGOT) 35 U/L (15-37); Alanine Aminotransfer ALT/SGPT 53 U/L (16-61); Albumin, Serum 3.7 g/dL (3.2-5.0); Alkaline Phosphatase 78 U/L (45-117); Anion Gap 5 (5-15); BUN 23 mg/dL (7-18); BUN/Creat Ratio 21.7 RATIO (10-20); CRP < 2.90 mg/L (0.0-3.0); Calcium,Total 9.8 mg/dL (8.5-10.1); Chloride 106 mmol/L (98-107); Creatinine, Serum 1.06 mg/dL (0.70-1.30); EST Glomerular Filtration Rate 74 mL/min (>60); Est Glom Filt Rate - Afr Amer 89 mL/min (>60); Globulin 3.2 g/dL (2.2-4.2); Glucose 88 mg/dL (74-106); Potassium 3.8 mmol/L (3.5-5.1); Protein, Total 6.9 g/dL (6.4-8.2); Rheumatoid Factor < 10.0 IU/mL (<15); Sodium Level 139 mmol/L (136-145)
[2019-08-31 13:19] LABS: Hepatitis B Surface Antibody Non-Reactive; Hepatitis B Surface Antigen Non-Reactive (Nonreactive); Hepatitis C Antibody Non-Reactive (Nonreactive)
[2019-09-01 17:02] LABS: ANTINUCLEAR ANTIBODIES DIRECT Negative (Negative)
[2019-09-04 16:48] LABS: CCP IgG Antibodies 7 units (0-19); HLA B27 Negative (.); Hepatitis B Core AB IgM Negative (Negative)
== END ==
PROVIDERS: PCP Family Medicine Geriatric Medicine; Referring Provider Internal Medicine Rheumatology; Visit Provider Internal Medicine Rheumatology
DX: M06.4 Inflammatory polyarthropathy (principal); M21.6X2 Other acquired deformities of left foot; M21.6X1 Other acquired deformities of right foot; F41.9 Anxiety disorder, unspecified; F32.9 Major depressive disorder, single episode, unspecified; I10 Essential (primary) hypertension; N40.1 Benign prostatic hyperplasia with lower urinary tract symptoms
CPT/HCPCS: 36415; 72170; 80053; 81374; 85025; 85652; 86038; 86140; 86200; 86431; 86705; 86706; 86803; 87340

== ENCOUNTER 2019-09-08 10:17 | Emergency (ER) | payer MEDICARE, OTHER, SELFPAY ==
[2018-11-19 15:00] VITALS: BMI 29.6
[2019-09-08 10:18] VITALS: BP 145/81; PULSE 57; RESP 16; TEMP 36.6; O2SAT 98; BMI 29.1
--- NOTE | 2019-09-08 10:42 | CT_ITS ---
STUDY: CT ABDOMEN AND PELVIS WITH CONTRAST REASON FOR EXAM: Male, 69 years old. RLQ PAIN SINCE THIS A.M., EMISSIO X 2 RADIATION DOSAGE (If Supplied By Facility): CTDIvol = ( 15.78 ) mGy, DLP = ( 1175.34 ) mGycm TECHNIQUE: Transaxial images were obtained from the dome of the diaphragm to the symphysis pubis with oral contrast. Oral and amp; IV Gastrografin and amp; 100mL Isovue-300 was administered. Sagittal and coronal images were reconstructed. Individualized dose optimization techniques were used for this CT. COMPARISON: Comparison is made with prior examination dated December 05, 2017. FINDINGS: Minimal degree of increased linear markings at the lung bases suggestive of bibasilar atelectasis. The visualized portions of the heart are within normal limits. There is decreased attenuation of the liver consistent with steatosis. Normal gallbladder and extrahepatic biliary system. There are multiple benign calcified granulomata of the spleen. Normal pancreas. Normal bilateral adrenal glands. Normal right kidney. Stable 2.5 cm cyst in the upper pole of the left kidney. There is a small hiatal hernia. Normal small intestine. Normal colon. The appendix is visualized and appears normal. Normal abdominal aorta. Normal inferior vena cava. Normal retroperitoneum. Normal urinary bladder. There is enlargement of the prostate gland. It measures 4.9 cm by 5.6 cm. Prostatic calcification. Small umbilical hernia containing a portion of a small bowel loop. Minimal increased markings are seen in the surrounding peritoneal fat. Clinical correlation is recommended. There are degenerative changes of the visualized lumbar spine. Mild loss of height of the superior endplate of the L1 vertebrae. CT/Abdomen/Pelvis WITH Contrast IMPRESSION: Fatty infiltration of the liver. Stable left renal cysts. Small umbilical hernia containing a portion of a small bowel loop with increased markings in the surrounding peritoneal fat. Clinical correlation is recommended. Electronically Signed: Sam De Los Santos, at 12:47 EST , Service support ,
[2019-09-08] MEDS: Morphine 4 MG/ML Syringe IV (11:03)
[2019-09-08] MEDS: Ondansetron 4 MG/2 ML Vial IV (11:03)
[2019-09-08] MEDS: 0.9% Normal Saline 1,000 ML 1000 ML IV (11:03)
[2019-09-08 11:12] LABS: Absolute Lymphocyte Count 1.03 X10^3/uL (0.83-4.51); Absolute Neutrophil Count 4.9 X10^3/uL (2.0-7.7); Basophil# 0.04 X10^3/uL; Basophil% 0.6 % (0-1); Eosinophil# 0.11 X10^3/uL; Eosinophils% 1.6 % (0-5); Hematocrit 44.8 % (40-54); Hemoglobin 15.1 g/dL (13.0-16.5); Lymphocyte # 1.03 X10^3/ul (4.0); Lymphocyte % 14.8 % (19-41); Mean Corp Hgb Conc 33.7 g/dL (32-36); Mean Corpuscular Hgb 29.6 pg (27.0-32.0); Mean Corpuscular Volume 87.8 fL (80-94); Mean Platelet Vol. 9.7 fl (6.2-12.0); Monocyte# 0.81 X10^3/uL; Monocyte% 11.6 % (0-10); NRBC Flagged by Analyzer 0 % (0-5); Neutrophil # 4.92 X10^3/uL (2.7-7.7); Neutrophil % 70.7 % (47-70); Platelet Count 174 K/mm3 (150-450); RBC Distribution Width CV 14.3 % (11.6-14.6); RBC Distribution Width SD 45.5 fl (35.1-43.9)
[2019-09-08 11:30] LABS: ALB/GLOB Ratio 1.2 RATIO (0.9-2.4); AST(SGOT) 47 U/L (15-37); Alanine Aminotransfer ALT/SGPT 42 U/L (16-61); Albumin, Serum 3.3 g/dL (3.2-5.0); Alkaline Phosphatase 79 U/L (45-117); Anion Gap 5 (5-15); BUN 19 mg/dL (7-18); BUN/Creat Ratio 19.2 RATIO (10-20); Calcium,Total 9.6 mg/dL (8.5-10.1); Chloride 110 mmol/L (98-107); Creatinine, Serum 0.99 mg/dL (0.70-1.30); EST Glomerular Filtration Rate 80 mL/min (>60); Est Glom Filt Rate - Afr Amer 97 mL/min (>60); Estimated Creatinine Clearance 81.88 ml/min; Globulin 2.8 g/dL (2.2-4.2); Glucose 98 mg/dL (74-106); Lipase 242 U/L (73-393); Potassium 3.8 mmol/L (3.5-5.1); Protein, Total 6.1 g/dL (6.4-8.2); Sodium Level 143 mmol/L (136-145)
[2019-09-08 12:43] LABS: Mucous, Urine 0 SEEN /hpf (<or=2+); Red Blood Cells-Urine 0 SEEN /hpf (0-5); White Blood Cells 0 SEEN /hpf (0-5)
[2019-09-08 13:04] LABS: Color, Urine Yellow (Yellow); Glucose, Dipstick Normal (Normal); Ketone-Dipstick Negative (Negative); Leukocyte Esterase-Dipstick Negative /ul (Negative); Nitrite-Dipstick Negative (Negative); Occult Blood-Urine Negative /ul (Negative); Protein-Dipstick Negative (Negative); Specific Gravity, Urine 1.015 (1.002-1.030); Urine Bilirubin Dipstick Negative (Negative); Urine Clarity Clear (Clear); Urine Urobilinogen Normal (Normal)
[2019-09-08 13:23] LABS: Bacteria RARE /hpf (None Seen); Squamous Epithelial Cells - UA 0-5 SEEN /hpf (0-5)
[2019-09-08 13:34] VITALS: BP 125/72; PULSE 56; RESP 15; O2SAT 97
--- NOTE | 2019-09-08 13:43 | ED.VISSUMM ---
- ER Visit Summary Date of Service: 09/08/19 Chief Complaint: Abdominal pain History of Present Illness: The patient is a 69 M who presents with abdominal pain that began today. Patient states that is gradually getting worse. Patient states the pain is over the right lower abdomen. Patient states his pain is worse when he bends forward. Patient describes his pain is dull. Patient admits to some nausea and vomiting but denies any hematemesis or coffee-ground emesis. Patient denies any diarrhea, melena, or hematochezia. Patient denies any dysuria or hematuria. Physical Examination: Vital signs are stable. Patient is afebrile. Patient is in no acute distress. Oral mucosa is pink and moist. Neck is supple. Trachea is midline. There is no JVD. Heart was regular rate and rhythm. Lungs are clear and equal bilaterally. Abdomen is soft. Bowel sounds are normal. There is some mild diffuse tenderness. There is no rebound or guarding noted. There is an umbilical hernia noted. This is easily reducible. Cranial nerves II through XII are intact. There are no focal motor or sensory deficits noted. Test Results: CBC, comprehensive metabolic profile, lipase, and urinalysis were obtained were all within normal limits. CT scan of the abdomen and pelvis was obtained. There is an umbilical hernia with a small loop of small bowel. There is no other acute abnormality noted. Emergency Department Course and Treatment: Patient was given IV fluids, morphine, and Zofran patient was feeling better on reevaluation. Patient was advised of his findings. Patient was instructed to eat a bland diet and advance as tolerated. Patient was instructed to follow-up with his primary care physician in 5 to 7 days. Patient and family understood and were agreeable with the plan. All questions were answered. Disposition: Discharge home Impression: Abdominal pain This note was generated with [employer] dictation software. It may contain incorrect words, spelling, and punctuation that were not noted in review of the chart prior to signing ED Disposition - Plan for ED Patient: Disposition: Home or Assisted Living Diagnosis: Umbilical hernia, Abdominal pain Instructions: ABDOMINAL PAIN, Unkown Cause, (Male) Referrals: Miki Collazo Chi, MD [Primary Care Provider] - 3-5 Days
[2019-09-08 14:17] VITALS: BP 163/94; PULSE 78; RESP 16; O2SAT 94
== END 2019-09-08 14:17 | disposition home or self-care (01) ==
PROVIDERS: Emergency Provider Emergency Medicine; PCP Family Medicine Geriatric Medicine
DX: K42.9 Umbilical hernia without obstruction or gangrene (principal); I10 Essential (primary) hypertension; N40.0 Benign prostatic hyperplasia without lower urinary tract symptoms; Z79.82 Long term (current) use of aspirin
CPT/HCPCS: 74177; 80053; 81001; 83690; 85025; 96361; 96374; 96375; 99283; J7030; Q9967; A4216; J2405

== ENCOUNTER 2019-10-02 09:12 | Day surgery (SDC) | payer MEDICARE, OTHER, SELFPAY ==
[2019-09-18 09:40] VITALS: BMI 29.1
--- NOTE | 2019-09-18 09:55 | HP_ITS ---
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 Required: No Accompanied by: Is patient in pain?: No Allergies No Known Allergies Allergy (Verified 09/18/19 09:38) Medications Tamsulosin HCl 0.4 mg PO DAILY 05/09/16 [History Confirmed 09/18/19] amlodipine 10 mg tablet 10 mg PO QDAY 09/02/17 [History Confirmed 09/18/19] aspirin 325 mg tablet 325 mg PO QDAY tab 09/02/17 [History Confirmed 09/18/19] venlafaxine 75 mg tablet 75 mg PO QDAY tab 09/02/17 [History Confirmed 09/18/19] Prednisolone Acetate/Pf [Prednisolone Acet 1% Eye Drop] 1 drp OP DAILY 09/08/19 [History Confirmed 09/18/19] PFSH Medical History Claudication (Chronic) Essential hypertension (Chronic) SOB (shortness of breath) (Acute) Fatigue (Acute) Chest pain (Acute) Hyperlipidemia (Chronic) Long-term use of high-risk medication (Acute) Atrial septal defect (Chronic) Umbilical hernia (Acute) Asthma (Acute) BPH (benign prostatic hyperplasia) (Acute) Depression (Acute) Hypothyroidism (Acute) Osteoarthritis (Acute) Family history of ischemic heart disease (Chronic) Family history of sudden cardiac (Chronic) Surgical History History of hernia repair (Resolved) Family History (Updated 09/18/19 @ 09:37 by Marilee Cao) Father Myocardial infarction Sudden cardiac Hypertension Cancer skin cancer Brother Myocardial infarction, Onset Age: 50 Brother Sudden cardiac , Onset Age: 30 Mother Arthritis Diabetes Social History (Updated 09/18/19 @ 09:[address] Jas Majano MD) Smoking Status: Never smoker alcohol intake: never substance use type: does not use HPI HPI HPI: JUVE ROLAND, is a 69 M who presents to the office today for HPI HPI Surgical H&P: Yes HPI: JUVE ROLAND, is a 69 M who presents to the office today for Umbilical hernia. The patient reports that for many years he has had his umbilical hernia but recently it grew larger. He reports that it is becoming more painful and he was in the emergency room with nausea and vomiting. CT scan revealed an umbilical hernia with a loop of bowel included in it. ROS General General: Yes fatigue; no weight change, appetite, colon cancer, breast cancer or weakness HEENT HEENT: No difficulty swallowing, eye injury, eye surgery, swollen glands or hoarseness Endo Endocrine: No thyroid disease, diabetes mellitus, thyroid cancer, Hair loss, heat intolerance or cold intolerance Skin Skin: No rash or changing moles Breast Breast: No left breast lump, right breast lump, nipple discharge, breast pain, abnormal mammogram, abnormal US or breast enlargement Musc Musculoskeletal: Yes back problems and arthritis; no rheumatoid arthritis, gout or joint pain Cardio Cardiovascular: Yes murmur and high blood pressure; no pacemaker, heart disease, atrial fibrillation, heart attack, heart stent, palpitations, shortness of breat with exertion or chest pain Psych Psychiatric: No depression, anxiety or hearing voices Resp Respiratory: Yes shortness of breath, No sleep apnea, No cough, No COPD, No asthma, No emphysema, No wheezing Gastro Gastrointestinal: Yes abdominal pain, No nausea or vomiting, No diarrhea, Yes constipation, No blood in stool, No acid reflux, No hemorrhoids, No ulcers, No gallbladder problem, No black,tarry stools New Hematologic: No blood thinners, No blood disorders, No bleeding, No anemia, No blood clots Neuro Neurologic: No system reviewed and no additional complaints, except as docu, No as per HPI, No abnormal walking, No abnormal hearing, No abnormal movements, No abnormal speech, No behavioral changes, No burning sensations, No confusion, No seizure-like activity, No unsteadiness, No dizziness, No localized weakness, No frequent falls, No headache(s), No lack of coordination, No loss of vision, No memory loss, Yes numbness, No other visual disturbances, No radiating pain, No restless legs, No sensory deficit, No fainting, Yes tingling, No tremor(s), No weakness, No other Exam Const General: cooperative Orientation: alert, oriented x3 HENMT Head: normal to inspection Ears: hearing grossly normal bilaterally Eyes General: appearance normal, both eyes and all related structures Visual Landry: normal visual landry by confrontation Neck Neck: normal visual inspection Chest Chest palpation & inspection: normal inspection of the chest Breast Palpation: No nipple discharge Resp Effort & Inspection: normal respiratory effort Auscultation: clear to auscultation bilaterally Cardio Rate: regular rate Rhythm: regular rhythm Heart Sounds: murmur GI Inspection: non-distended Palpation: soft, hernia umbilical, nontender Musc Cervical Spine: normal cervical lordosis, cervical ROM normal Skin General: no rashes or lesions noted Neuro General: alert, oriented x3 Cranial Nerves: CN's II-XI intact bilaterally Cognition: normal cognition Extrem General: normal to inspection, full ROM Psych Appearance: grossly normal Affect: normal affect Assessment & Plan Problems 1. Umbilical hernia without obstruction and without gangrene K42.9 Plan The patient had a recent Visit to the emergency room and during that visit a CAT scan was obtained which showed a loop of small bowel in his umbilical hernia. He is not currently having any nausea or vomiting but he did have nausea vomiting in the past. Currently today it is nontender and reducible. I recommend umbilical hernia repair with mesh. I recommend open approach with a retrorectus mesh placement. I discussed open repair with the patient in detail. I discussed the risks including not limited to bleeding, recurrence, infection, injury to underlying bowel. Patient understands the risks and is willing to proceed. Jas Majano MD Pager: [facility] [address] [place] [address], [address] [place] [address] Office: Coding Level of Care Code Off vis,new,level 4 Diagnoses Umbilical hernia without obstruction and without gangrene K42.9 ??Obstruction and gangrene presence: without obstruction or gangrene Time Spent (min) 45 09/18/19 0999 <Electronically signed by Jsa arlph MD> Date _ Jas CLAYTON I have re-examined the patient. There are no clinical changes since date of exam.
--- NOTE | 2019-09-26 09:33 | EKG12_ITS ---
Test Reason : PRE OP Blood Pressure : / mmHG Vent. Rate : 079 BPM Atrial Rate : 079 BPM P-R Int : 170 ms QRS Dur : 100 ms QT Int : 400 ms P-R-T Axes : 065 006 014 degrees QTc Int : 458 ms Normal sinus rhythm Normal ECG Confirmed by JENNI SOFIA MD ([id number]), acquisition editor SY LÓPEZ ([id number]) on 09/28/2019 3:33:43 PM Referred By: Jas Majano Confirmed By:JENNI SOFIA MD
[2019-09-26 09:51] LABS: AST(SGOT) 40 U/L (15-37); Alanine Aminotransfer ALT/SGPT 38 U/L (16-61); Albumin, Serum 3.6 g/dL (3.2-5.0); Alkaline Phosphatase 83 U/L (45-117); Bilirubin, Direct 0.12 mg/dL (0.00-0.30); Globulin 3.2 g/dL (2.2-4.2); Protein, Total 6.8 g/dL (6.4-8.2)
[2019-09-26 10:26] LABS: Prothrombin Time (Protime)PT. 12.6 SECONDS (11.7-14.9)
[2019-10-02] VITALS (9 sets, daily range): BP systolic 113–146; BP diastolic 67–84; PULSE 49–69; RESP 14–16; TEMP 36.1–36.4; O2SAT 92–98; BMI 28.8
[2019-10-02] MEDS: Lactated Ringers 1,000 ML 100 ML IV (09:54)
[2019-10-02] MEDS: Cefazolin 2 GM in 0.9% Normal Saline 100 ML IV (11:00)
[2019-10-02] MEDS: Bupiv/Epi 0.5% Mpf 30 ML Vial (11:42)
--- NOTE | 2019-10-02 12:27 | PCM.OPRPT ---
Problem List (1) Umbilical hernia without obstruction and without gangrene Status: Acute Report of Operation Date of Procedure: 10/02/19 Pre-Operative Diagnosis: Umbilical hernia Post-Operative Diagnosis: Umbilical hernia Surgery/Procedure Performed:: Umbilical hernia repair with mesh Specimen's removed: None Description of Procedure: The abdomen was prepped and draped in usual sterile fashion. A curvilinear incision was marked and anesthetized with local anesthetic. Incision was made with a scalpel and the hernia sac was dissected free from the umbilical stalk. The hernia sac was reduced and the fascia was grasped and elevated. The preperitoneal plane was dissected free circumferentially to make a pocket for the mesh. There was a small opening in the peritoneum which was closed with a running 3-0 Vicryl suture. Next a large ventral Yasir ST mesh was placed into the preperitoneal space and tacked to the anterior fascial wall using interrupted 0 PDS sutures. This was irrigated and suctioned dry and the fascia was closed in a transverse fashion using 4 [id number] 0 PDS sutures. The umbilical stalk was then tacked to the anterior fascia using a 3-0 Vicryl suture. The skin was reapproximated with a running 4-0 Monocryl suture. Steri-Strips and bandages were then applied. The patient tolerated the procedure well was brought to PACU in stable condition. Grafts/Implants Used: Large Ventralex ST - Admit VTE Documentation VTE Mechan Device Prophylaxis: SCD's
--- NOTE | 2019-10-02 12:30 | DCINST_ITS ---
Discharge Diet: Light diet - advance as tolerated Discharge Activity: Return to Normal Activity, May Not Drive - for 2-3 days or while taking narcotic pain meds., May Shower - with the bandage in place 1-2 days after surgery. Lifting Restrictions: 20 pounds for 6 weeks. Additional Activity Instructions:: Climbing stairs is fine, walking is encouraged. Sitting in bed may be uncomfortable. Sitting up using your lateral muscles (sitting up sideways) is usually more comfortable. Do not drive, work heavy equipment of sign legal documents for 24 hours. Pain medications may cause nausea, you should typically eat light foods as you take your pain medications. Pain medications may also cause constipation. If you have difficulty with this, discuss with your doctor. Call your doctor if your incision/area has: Continuous Slow Oozing, Sudden Increased Bleeding, Increased Pain/ Swelling, Increased Redness, Foul Smelling Discharge Call your doctor if you observe: Fever of 101 or Higher Suture Line Care: Avoid Pulling/Pushing, Avoid Pinching/Bending Change Dressing in (Days):: 3 - Leave steri-strips for 1 week. May protect with a guaze bandaid. Cleanse incision/area with: Keep Dressing Clean & Dry Allergies/Adverse Reactions: Allergies No Known Allergies Allergy (Verified 10/02/19 09:27) Medications to take at Discharge Tamsulosin HCl 0.4 mg PO DAILY 05/09/16 amlodipine 10 mg tablet 10 mg PO QDAY 09/02/17 aspirin 325 mg tablet 325 mg PO QDAY tab 09/02/17 venlafaxine 75 mg tablet 75 mg PO QDAY tab 09/02/17 Prednisolone Acetate/Pf [Prednisolone Acet 1% Eye Drop] 1 drp OP DAILY 09/08/19 Finasteride 5 mg PO DAILY 09/25/19 Oxycodone HCl/Acetaminophen [Percocet 5-325 mg Tablet] 1 - 2 tab PO Q6H PRN 5 Days #30 tablet 10/02/19 The following prescriptions were given: Oxycodone HCl/Acetaminophen [Percocet 5-325 mg Tablet] 1 - 2 tab PO Q6H PRN 5 Days #30 tablet PRN Reason: Pain Score 4-10/10 Transmission Status: Sent to [facility] Orders to be completed after discharge: Liver Profile Time Frame: 09/25/19, Facility: [facility], Location: Laboratory Partial Thromboplast Time Time Frame: 09/25/19, Facility: [facility], Location: Laboratory Prothrombin Time w/INR Time Frame: 09/25/19, Facility: [facility], Location: Laboratory Test Results: Test results from this visit will be discussed in further detail at your follow- up appointment, if applicable. Please Follow Up With: Jas Majano MD When: Please call to schedule 2 week follow up appointment. [phone]
== END 2019-10-02 15:16 | disposition home or self-care (01) ==
LOC: SDC 09:13 → AC 09:14
PROVIDERS: PCP Family Medicine Geriatric Medicine; Referring Provider Surgery; Visit Provider Surgery
PROC: (CPT 49585; principal; 2019-10-02 10:45)
DX: K42.9 Umbilical hernia without obstruction or gangrene (principal); I10 Essential (primary) hypertension; I49.9 Cardiac arrhythmia, unspecified; E78.5 Hyperlipidemia, unspecified; F32.9 Major depressive disorder, single episode, unspecified; N40.0 Benign prostatic hyperplasia without lower urinary tract symptoms; M19.90 Unspecified osteoarthritis, unspecified site; Z79.82 Long term (current) use of aspirin; Z79.899 Other long term (current) drug therapy; Z48.01 Encounter for change or removal of surgical wound dressing
CPT/HCPCS: 00830; 49585; 36415; 80076; 85610; 85730; 93005; 99282; J7120; C1781; J2405

== ENCOUNTER 2019-10-02 19:55 | Emergency (ER) | payer MEDICARE, OTHER, SELFPAY ==
[2019-10-02 09:27] VITALS: BMI 28.8
[2019-10-02 19:57] VITALS: BP 133/80; PULSE 57; RESP 18; TEMP 36.7; O2SAT 96; BMI 28.8
--- NOTE | 2019-10-02 20:17 | ED.VIS.GEN ---
History of Present Illness Chief Complaint: Wound Check Detail of Chief Complaint: Bleeding from surgical site Informant: Patient, Family Current Severity: Mild Maximum Severity: Mild Narrative: Patient had an umbilical hernia repair today with Dr. Majano. He has cotton balls and OpSite over the umbilical surgical site. Cotton balls are saturated with blood. Family did contact Dr. Arroyo, on-call for surgery. He encouraged the family to come in to have the wound checked. Patient denies significant pain. - Past Medical History (1) Atrial septal defect Status: Chronic (2) Essential hypertension Status: Chronic (3) Hyperlipidemia Status: Chronic Past Medical History - Allergies and Home Meds Allergies/Adverse Reactions: Allergies No Known Allergies Allergy (Verified 10/02/19 09:27) Primary Care Physician: Miki Collazo Chi, MD [Primary Care Provider] - Prior records reviewed: Yes Lives: Spouse/ Significant Other Smoking Status: Never smoker Review of Systems General: Denies: Chills, Fever Eyes: Denies: Visual changes - bilaterally ENT: Denies: Bilateral ear pain Cardiovascular: Denies: Chest pain Respiratory: Denies: Dyspnea, Cough Gastrointestinal: Reports: Abdominal pain - Appropriate postop pain at surgical incision site. Denies: Nausea, Vomiting Musculoskeletal: Denies: Extremity Pain Skin: Denies: Rash Neurological: Denies: Headache Allergy: Denies: Uticaria Physical Exam Vital Signs/Narrative: Vital Signs Temp Pulse Resp BP Pulse Ox 10/02/19 19:57 98.1 F 57 L 18 133/80 H 96 Inital Vital Signs reviewed: Yes General: Well nourished, Well developed Head: Normocephalic ENT: Moist mucous membranes Neck: Supple Cardiovascular: Regular rate, Regular rhythm Respiratory: No distress, CTA bilaterally Abdomen: Soft, - - Mild tenderness around the umbilical surgical site. Hypoactive bowel sounds are present. Extremities: Nontender Skin: Normal color Neurological: Alert, Oriented x3 Psychological: Normal affect Diagnostic/Tx/Re-eval - Medical Decision Making Dressing is removed from the periumbilical surgical site. There is mild oozing of blood under the left most side of the incision. 2 Steri-Strips are removed and wound is cleansed. With palpation around the wound there is no further bleeding. New Steri-Strips are applied. This is covered with Surgifoam followed by cotton balls and OpSite. Patient is rechecked after approximately 30 minutes. Dressing is still clean. Patient gets up and walks down the [place] and back. Wound is rechecked with no further bleeding. He will be discharged home at this time. ED Disposition - Plan for ED Patient: Disposition: Home or Assisted Living Diagnosis: Encounter for postoperative wound check Instructions: POST OP WOUND CHECK, Bleeding Referrals: Jas Majano MD [STAFF PHYSICIAN] - Keep [place] appointment
[2019-10-02 20:55] VITALS: PULSE 56; RESP 17; O2SAT 96
== END 2019-10-02 21:00 | disposition home or self-care (01) ==
PROVIDERS: Emergency Provider Emergency Medicine; PCP Family Medicine Geriatric Medicine
DX: Z48.01 Encounter for change or removal of surgical wound dressing (principal); I10 Essential (primary) hypertension; E78.5 Hyperlipidemia, unspecified; Z79.82 Long term (current) use of aspirin
CPT/HCPCS: 99282

== ENCOUNTER → 2019-11-03 12:41 | Outpatient (CLI) | payer MEDICARE, OTHER, SELFPAY ==
[2019-11-03 14:46] LABS: Absolute Lymphocyte Count 1.23 X10^3/uL (0.83-4.51); Absolute Neutrophil Count 3.6 X10^3/uL (2.0-7.7); Basophil# 0.04 X10^3/uL; Basophil% 0.7 % (0-1); Eosinophils% 1.8 % (0-5); Hemoglobin 16.1 g/dL (13.0-16.5); Lymphocyte # 1.23 X10^3/ul (4.0); Lymphocyte % 21.6 % (19-41); Mean Corp Hgb Conc 32.9 g/dL (32-36); Mean Corpuscular Hgb 29.1 pg (27.0-32.0); Mean Corpuscular Volume 88.6 fL (80-94); Mean Platelet Vol. 10.4 fl (6.2-12.0); Monocyte# 0.68 X10^3/uL; Monocyte% 11.9 % (0-10); NRBC Flagged by Analyzer 0 % (0-5); Neutrophil # 3.62 X10^3/uL (2.7-7.7); Neutrophil % 63.5 % (47-70); Platelet Count 228 K/mm3 (150-450); RBC Distribution Width CV 12.2 % (11.6-14.6); RBC Distribution Width SD 39.6 fl (35.1-43.9); Red Blood Count 5.53 M/mm3 (4.6-6.2); White Blood Count 5.7 K/mm3 (4.4-11.0)
[2019-11-03 14:59] LABS: Erythrocyte Sedimentation Rate 8 mm/hr (0-20)
[2019-11-03 15:04] LABS: ALB/GLOB Ratio 1.3 RATIO (0.9-2.4); AST(SGOT) 44 U/L (15-37); Alanine Aminotransfer ALT/SGPT 47 U/L (16-61); Albumin, Serum 3.8 g/dL (3.2-5.0); Alkaline Phosphatase 89 U/L (45-117); Anion Gap 4 (5-15); BUN 17 mg/dL (7-18); BUN/Creat Ratio 18.2 RATIO (10-20); Calcium,Total 9.3 mg/dL (8.5-10.1); Chloride 107 mmol/L (98-107); Creatinine, Serum 0.93 mg/dL (0.70-1.30); EST Glomerular Filtration Rate 85 mL/min (>60); Est Glom Filt Rate - Afr Amer 103 mL/min (>60); Glucose 91 mg/dL (74-106); Potassium 3.6 mmol/L (3.5-5.1); Protein, Total 6.8 g/dL (6.4-8.2); Rheumatoid Factor < 10.0 IU/mL (<15); Sodium Level 140 mmol/L (136-145)
[2019-11-03 15:59] LABS: CRP < 2.90 mg/L (0.0-3.0)
[2019-11-04 09:07] LABS: Hepatitis B Surface Antibody Non-Reactive; Hepatitis B Surface Antigen Non-Reactive (Nonreactive); Hepatitis C Antibody Non-Reactive (Nonreactive)
[2019-11-05 13:09] LABS: ANTINUCLEAR ANTIBODIES DIRECT Negative (Negative)
[2019-11-10 15:58] LABS: CCP IgG Antibodies 8 units (0-19); HLA B27 Negative (.); Hepatitis B Core AB IgM Negative (Negative)
== END ==
PROVIDERS: PCP Family Medicine Geriatric Medicine; Referring Provider Internal Medicine Rheumatology; Visit Provider Internal Medicine Rheumatology
DX: M06.4 Inflammatory polyarthropathy (principal); M21.6X2 Other acquired deformities of left foot; M21.6X1 Other acquired deformities of right foot; F32.9 Major depressive disorder, single episode, unspecified; F41.9 Anxiety disorder, unspecified; I10 Essential (primary) hypertension; N40.1 Benign prostatic hyperplasia with lower urinary tract symptoms
CPT/HCPCS: 36415; 80053; 81374; 85025; 85652; 86038; 86140; 86200; 86431; 86705; 86706; 86803; 87340

== ENCOUNTER → 2019-11-13 11:44 | Outpatient (CLI) | payer MEDICARE, OTHER, SELFPAY ==
[2019-11-13 12:33] LABS: Absolute Lymphocyte Count 1.72 X10^3/uL (0.83-4.51); Absolute Neutrophil Count 5.3 X10^3/uL (2.0-7.7); Basophil# 0.04 X10^3/uL; Basophil% 0.5 % (0-1); Eosinophil# 0.11 X10^3/uL; Eosinophils% 1.4 % (0-5); Hematocrit 47.9 % (40-54); Hemoglobin 16.2 g/dL (13.0-16.5); Lymphocyte # 1.72 X10^3/ul (4.0); Lymphocyte % 21.5 % (19-41); Mean Corp Hgb Conc 33.8 g/dL (32-36); Mean Corpuscular Hgb 29.2 pg (27.0-32.0); Mean Corpuscular Volume 86.5 fL (80-94); Mean Platelet Vol. 9.9 fl (6.2-12.0); Monocyte# 0.78 X10^3/uL; Monocyte% 9.8 % (0-10); NRBC Flagged by Analyzer 0 % (0-5); Neutrophil # 5.27 X10^3/uL (2.7-7.7); Neutrophil % 65.9 % (47-70); Platelet Count 253 K/mm3 (150-450); RBC Distribution Width CV 12.4 % (11.6-14.6); RBC Distribution Width SD 38.9 fl (35.1-43.9); Red Blood Count 5.54 M/mm3 (4.6-6.2)
[2019-11-13 12:55] LABS: Vitamin D,25 Hydroxy 25.7 ng/mL
[2019-11-13 13:11] LABS: ALB/GLOB Ratio 1.2 RATIO (0.9-2.4); AST(SGOT) 37 U/L (15-37); Alanine Aminotransfer ALT/SGPT 42 U/L (16-61); Albumin, Serum 3.9 g/dL (3.2-5.0); Alkaline Phosphatase 85 U/L (45-117); Anion Gap 7 (5-15); BUN 17 mg/dL (7-18); BUN/Creat Ratio 17.8 RATIO (10-20); Calcium,Total 9.3 mg/dL (8.5-10.1); Chloride 104 mmol/L (98-107); Creatinine, Serum 0.96 mg/dL (0.70-1.30); EST Glomerular Filtration Rate 83 mL/min (>60); Est Glom Filt Rate - Afr Amer 100 mL/min (>60); Globulin 3.2 g/dL (2.2-4.2); Glucose 81 mg/dL (74-106); Potassium 3.9 mmol/L (3.5-5.1); Protein, Total 7.1 g/dL (6.4-8.2); Sodium Level 137 mmol/L (136-145); Thyroid Stim Hormone (TSH) 2.78 uIU/mL (0.358-3.74)
== END ==
PROVIDERS: PCP Family Medicine Geriatric Medicine; Referring Provider Family Medicine Geriatric Medicine; Visit Provider Family Medicine Geriatric Medicine
DX: E23.6 Other disorders of pituitary gland (principal); E55.9 Vitamin D deficiency, unspecified; I10 Essential (primary) hypertension
CPT/HCPCS: 36415; 80053; 82306; 84403; 84443; 85025

== ENCOUNTER → 2019-11-20 08:17 | Outpatient (CLI) | payer MEDICARE, OTHER, SELFPAY ==
--- NOTE | 2019-11-20 16:11 | PFTCOMP ---
COMPLETE PULMONARY FUNCTION TEST INTERPRETATION Brief HPI: Patient is a 69 year old male, currently under the care of Dr. Collazo, who presents to [facility] for complete pulmonary function tests secondary to diagnosis of dyspnea. Respiratory therapist reports good effort and reproducible results. Interpretation: Forced expiration spirometry shows a mild large airways obstructive ventilatory defect with an FEV1 of 98% predicted. There is no significant bronchodilator response by strict ATS criteria, but FEV1 did improve by 370 cc and 11% after bronchodilators. Spirograms are of good quality and plateau slowly, indicating slowly emptying areas of the lungs. The respiratory flow volume loop shows decreased expiratory flow rates at high lung volumes consistent with small airways obstruction. Lung volumes by body plethysmography show a normal total lung capacity at 7.83 L, 105% predicted. All other lung volumes are within normal limits. Diffusion capacity by carbon monoxide is normal at 112% predicted. The airway resistance is slightly elevated. No previous pulmonary function tests were available for review. Impression: Technically irreversible mild large airways obstructive ventilatory defect, but barely missed diagnostic criteria for asthma. Clinical correlation is advised.
== END ==
PROVIDERS: PCP Family Medicine Geriatric Medicine; Referring Provider Family Medicine Geriatric Medicine; Visit Provider Family Medicine Geriatric Medicine
DX: R06.02 Shortness of breath (principal)
CPT/HCPCS: 94060; 94726; 94729

== ENCOUNTER → 2019-12-07 12:05 | Outpatient (CLI) | payer MEDICARE, OTHER, SELFPAY ==
[2019-12-03 16:15] VITALS: BMI 28.4
[2019-12-07 15:11] LABS: ALB/GLOB Ratio 1.2 RATIO (0.9-2.4); AST(SGOT) 41 U/L (15-37); Alanine Aminotransfer ALT/SGPT 37 U/L (16-61); Albumin, Serum 3.6 g/dL (3.2-5.0); Alkaline Phosphatase 80 U/L (45-117); Anion Gap 6 (5-15); BUN 16 mg/dL (7-18); BUN/Creat Ratio 16.1 RATIO (10-20); Chloride 108 mmol/L (98-107); EST Glomerular Filtration Rate 79 mL/min (>60); Est Glom Filt Rate - Afr Amer 96 mL/min (>60); Globulin 3.1 g/dL (2.2-4.2); Glucose 83 mg/dL (74-106); Potassium 3.7 mmol/L (3.5-5.1); Protein, Total 6.7 g/dL (6.4-8.2); Sodium Level 141 mmol/L (136-145)
== END ==
PROVIDERS: PCP Family Medicine Geriatric Medicine; Referring Provider Internal Medicine Rheumatology; Visit Provider Internal Medicine Rheumatology
DX: M06.4 Inflammatory polyarthropathy (principal); M21.6X1 Other acquired deformities of right foot; F32.9 Major depressive disorder, single episode, unspecified; F41.9 Anxiety disorder, unspecified; I10 Essential (primary) hypertension; N40.1 Benign prostatic hyperplasia with lower urinary tract symptoms; Z79.899 Other long term (current) drug therapy
CPT/HCPCS: 36415; 80053

== ENCOUNTER → 2020-01-04 08:32 | Outpatient (CLI) | payer MEDICARE, OTHER, SELFPAY ==
[2019-12-03 16:15] VITALS: BMI 28.4
--- NOTE | 2020-01-04 08:33 | ECHOD_ITS ---
Reason For Study: DYSPNEA Procedure This was a 2D Doppler, Color Flow transthoracic echocardiogram. The exam was of adequate technical quality. Exam performed in department. Left Ventricle Normal LV size. Left ventricular systolic function is normal. The estimated ejection fraction is 65 %. No evidence for diastolic dysfunction. No regional wall motion abnormalities noted. Right Ventricle Normal RV size. Normal systolic function. Atria Normal left atrium. Normal right atrium. Color-flow Doppler cannot exclude a small PFO versus ASD with a left to right interatrial shunt. Mitral Valve There is mild mitral annular calcification. Normal mitral valve. Trivial mitral valve insufficiency. Tricuspid Valve Normal tricuspid valve. Trivial tricuspid valve insufficiency. Right ventricular systolic pressure estimated to be 29 mmHg. Aortic Valve Trisinus/trileaflet aortic valve. Normal aortic valve. Pulmonic Valve The pulmonic valve is not well visualized. Great Vessels Mildly dilated aortic root. Pericardium/Pleural No pericardial effusion. MMode/2D Measurements & Calculations LVIDd: 4.9 cm IVSd: 1.00 cm Ao root diam: 4.1 cm LVIDs: 3.1 cm LVPWd: 1.1 cm RVDd: 3.3 cm FS: 35.9 % LAV(MOD-bp): 50.7 ml LVAd ap4: 32.9 cm2 SV(MOD-sp4): 63.4 ml LAV(MOD-bp) Indexed: 22.0 ml/m2 EDV(MOD-sp4): 102.3 ml LAV(MOD-sp2): 57.5 ml EDV(sp4-el): 104.3 ml LAV(MOD-sp4): 44.0 ml LVAs ap4: 17.5 cm2 ESV(MOD-sp4): 38.9 ml ESV(sp4-el): 37.1 ml EF(MOD-sp4): 62.0 % EF(sp4-el): 64.4 % SV(sp4-el): 67.2 ml LA A4 area: 17.6 cm2 LA dimension(2D): 4.5 cm RA A4 area: 15.2 cm2 Time Measurements MV dec time: 0.20 sec Doppler Measurements & Calculations MV E max thai: 64.8 cm/sec Lat Peak E' Thai: 10.2 cm/sec Med Peak E' Thai: 7.7 cm/sec MV A max thai: 81.2 cm/sec E/E' lat: 6.4 E/E' med: 8.4 MV E/A: 0.80 Ao V2 max: 160.8 cm/sec LV V1 max: 130.2 cm/sec PA V2 max: 116.3 cm/sec Ao max P.4 mmHg LV V1 max P.8 mmHg TR max thai: 256.0 cm/sec TR max P.2 mmHg Interpretation Summary Left ventricular systolic function is normal. The estimated ejection fraction is 65 %. There is mild mitral annular calcification. Trivial mitral valve insufficiency. Trivial tricuspid valve insufficiency. Mildly dilated aortic root. Right ventricular systolic pressure estimated to be 29 mmHg. No evidence for diastolic dysfunction. Color-flow Doppler cannot exclude a small PFO versus ASD with a left to right interatrial shunt. Comment: KALEIGH from 12/18/11 demonstrated a color flow doppler study and an agitated saline contrast study positive for a left to right interatrial shunt c/w a PFO and during Valsalva a right to left interatrial shunt c/w a PFO respectively. Ordering Physician: Gianni Beckham Referring Physician: MAHENDRA KYLE Performed By: Renetat Yang, RDCS, RVT
== END ==
PROVIDERS: PCP Family Medicine Geriatric Medicine; Referring Provider Internal Medicine Cardiovascular Disease; Visit Provider Internal Medicine Cardiovascular Disease
DX: R06.02 Shortness of breath (principal); I10 Essential (primary) hypertension; E78.5 Hyperlipidemia, unspecified; Q21.1 Atrial septal defect
CPT/HCPCS: 93306

== ENCOUNTER → 2020-01-15 08:35 | Outpatient (CLI) | payer MEDICARE, OTHER, SELFPAY ==
[2019-12-03 16:15] VITALS: BMI 28.4
== END ==
PROVIDERS: PCP Family Medicine Geriatric Medicine; Referring Provider Internal Medicine Cardiovascular Disease; Visit Provider Internal Medicine Cardiovascular Disease
DX: R53.83 Other fatigue (principal); R00.1 Bradycardia, unspecified
CPT/HCPCS: 93225; 93226

== ENCOUNTER → 2020-02-15 15:59 | Outpatient (CLI) | payer MEDICARE, OTHER, SELFPAY ==
[2019-12-03 16:15] VITALS: BMI 28.4
[2020-02-15 18:21] LABS: ALB/GLOB Ratio 1.4 RATIO (0.9-2.4); AST(SGOT) 46 U/L (15-37); Alanine Aminotransfer ALT/SGPT 36 U/L (16-61); Alkaline Phosphatase 87 U/L (45-117); Anion Gap 3 (5-15); BUN 29 mg/dL (7-18); Calcium,Total 9.6 mg/dL (8.5-10.1); Chloride 113 mmol/L (98-107); Creatinine, Serum 1.21 mg/dL (0.70-1.30); EST Glomerular Filtration Rate 63 mL/min (>60); Est Glom Filt Rate - Afr Amer 76 mL/min (>60); Globulin 2.9 g/dL (2.2-4.2); Glucose 76 mg/dL (74-106); Potassium 4.3 mmol/L (3.5-5.1); Protein, Total 6.9 g/dL (6.4-8.2); Sodium Level 144 mmol/L (136-145)
== END ==
PROVIDERS: PCP Family Medicine Geriatric Medicine; Referring Provider Internal Medicine Rheumatology; Visit Provider Internal Medicine Rheumatology
DX: M06.4 Inflammatory polyarthropathy (principal); M21.6X1 Other acquired deformities of right foot; F32.9 Major depressive disorder, single episode, unspecified; F41.9 Anxiety disorder, unspecified; I10 Essential (primary) hypertension; N40.1 Benign prostatic hyperplasia with lower urinary tract symptoms; Z79.899 Other long term (current) drug therapy
CPT/HCPCS: 36415; 80053

== ENCOUNTER → 2020-03-11 08:00 | Outpatient (CLI) | payer MEDICARE, OTHER, SELFPAY ==
[2019-12-03 16:15] VITALS: BMI 28.4
[2020-03-11 10:10] LABS: Absolute Lymphocyte Count 1.29 X10^3/uL (0.83-4.51); Absolute Neutrophil Count 3.1 X10^3/uL (2.0-7.7); Basophil# 0.04 X10^3/uL; Basophil% 0.8 % (0-1); Eosinophil# 0.14 X10^3/uL; Eosinophils% 2.7 % (0-5); Hemoglobin 14.4 g/dL (13.0-16.5); Lymphocyte # 1.29 X10^3/ul (4.0); Lymphocyte % 24.7 % (19-41); Mean Corp Hgb Conc 32.7 g/dL (32-36); Mean Corpuscular Hgb 28.9 pg (27.0-32.0); Mean Corpuscular Volume 88.2 fL (80-94); Mean Platelet Vol. 10.8 fl (6.2-12.0); Monocyte# 0.59 X10^3/uL; Monocyte% 11.3 % (0-10); NRBC Flagged by Analyzer 0 % (0-5); Neutrophil # 3.14 X10^3/uL (2.7-7.7); Neutrophil % 60.1 % (47-70); Platelet Count 223 K/mm3 (150-450); RBC Distribution Width CV 12.4 % (11.6-14.6); RBC Distribution Width SD 40.1 fl (35.1-43.9); Red Blood Count 4.99 M/mm3 (4.6-6.2); White Blood Count 5.2 K/mm3 (4.4-11.0)
[2020-03-11 10:30] LABS: ALB/GLOB Ratio 1.2 RATIO (0.9-2.4); AST(SGOT) 42 U/L (15-37); Alanine Aminotransfer ALT/SGPT 32 U/L (16-61); Albumin, Serum 3.9 g/dL (3.2-5.0); Alkaline Phosphatase 83 U/L (45-117); Anion Gap 5 (5-15); BUN 19 mg/dL (7-18); Calcium,Total 9.2 mg/dL (8.5-10.1); Chloride 106 mmol/L (98-107); EST Glomerular Filtration Rate 79 mL/min (>60); Est Glom Filt Rate - Afr Amer 95 mL/min (>60); Globulin 3.2 g/dL (2.2-4.2); Glucose 86 mg/dL (74-106); Protein, Total 7.1 g/dL (6.4-8.2); Sodium Level 139 mmol/L (136-145)
[2020-03-14 10:40] LABS: G6PD Quant Test 252 (146-376)
== END ==
PROVIDERS: PCP Family Medicine Geriatric Medicine; Referring Provider Internal Medicine Rheumatology; Visit Provider Internal Medicine Rheumatology
DX: M06.4 Inflammatory polyarthropathy (principal); M21.6X1 Other acquired deformities of right foot; M21.6X2 Other acquired deformities of left foot; F32.9 Major depressive disorder, single episode, unspecified; F41.9 Anxiety disorder, unspecified; I10 Essential (primary) hypertension; N40.1 Benign prostatic hyperplasia with lower urinary tract symptoms; K76.0 Fatty (change of) liver, not elsewhere classified; Z79.899 Other long term (current) drug therapy
CPT/HCPCS: 36415; 80053; 82955; 85025

== ENCOUNTER → 2020-05-04 17:16 | Outpatient (CLI) | payer MEDICARE, OTHER, SELFPAY ==
[2019-12-03 16:15] VITALS: BMI 28.4
== END ==
PROVIDERS: PCP Family Medicine Geriatric Medicine; Referring Provider Family Medicine Geriatric Medicine; Visit Provider Family Medicine Geriatric Medicine
DX: U07.1 COVID-19 (principal)
CPT/HCPCS: 87635; C9803; U0003

== ENCOUNTER → 2020-05-20 09:21 | Outpatient (CLI) | payer MEDICARE, OTHER, SELFPAY ==
[2019-12-03 16:15] VITALS: BMI 28.4
[2020-05-20 13:28] LABS: Absolute Lymphocyte Count 1.33 X10^3/uL (0.83-4.51); Absolute Neutrophil Count 2.7 X10^3/uL (2.0-7.7); Basophil# 0.04 X10^3/uL; Basophil% 0.8 % (0-1); Eosinophil# 0.19 X10^3/uL; Eosinophils% 3.8 % (0-5); Hematocrit 45.8 % (40-54); Hemoglobin 14.6 g/dL (13.0-16.5); Lymphocyte # 1.33 X10^3/ul (4.0); Lymphocyte % 26.6 % (19-41); Mean Corp Hgb Conc 31.9 g/dL (32-36); Mean Corpuscular Hgb 28.5 pg (27.0-32.0); Mean Corpuscular Volume 89.3 fL (80-94); Mean Platelet Vol. 11.4 fl (6.2-12.0); Monocyte# 0.75 X10^3/uL; NRBC Flagged by Analyzer 0 % (0-5); Neutrophil # 2.67 X10^3/uL (2.7-7.7); Neutrophil % 53.4 % (47-70); Platelet Count 220 K/mm3 (150-450); RBC Distribution Width CV 12.7 % (11.6-14.6); RBC Distribution Width SD 41.6 fl (35.1-43.9); Red Blood Count 5.13 M/mm3 (4.6-6.2)
[2020-05-20 13:41] LABS: Vitamin D,25 Hydroxy 24.4 ng/mL
[2020-05-20 13:48] LABS: ALB/GLOB Ratio 1.2 RATIO (0.9-2.4); AST(SGOT) 41 U/L (15-37); Alanine Aminotransfer ALT/SGPT 32 U/L (16-61); Albumin, Serum 3.8 g/dL (3.2-5.0); Alkaline Phosphatase 93 U/L (45-117); Anion Gap 6 (5-15); BUN 13 mg/dL (7-18); BUN/Creat Ratio 12.4 RATIO (10-20); Calcium,Total 8.7 mg/dL (8.5-10.1); Chloride 108 mmol/L (98-107); Creatinine, Serum 1.05 mg/dL (0.70-1.30); EST Glomerular Filtration Rate 74 mL/min (>60); Est Glom Filt Rate - Afr Amer 90 mL/min (>60); Globulin 3.2 g/dL (2.2-4.2); Glucose 89 mg/dL (74-106); PSA,Total - Annual Screen 1.05 ng/mL (0.00-4.00); Potassium 4.2 mmol/L (3.5-5.1); Sodium Level 144 mmol/L (136-145); Thyroid Stim Hormone (TSH) 3.39 uIU/mL (0.358-3.74)
== END ==
PROVIDERS: PCP Family Medicine Geriatric Medicine; Visit Provider Family Medicine Geriatric Medicine
DX: E23.6 Other disorders of pituitary gland (principal); E55.9 Vitamin D deficiency, unspecified; R53.83 Other fatigue; Z12.5 Encounter for screening for malignant neoplasm of prostate
CPT/HCPCS: 36415; 80053; 82306; 84153; 84403; 84443; 85025; G0103

== ENCOUNTER → 2020-06-07 15:01 | Outpatient (CLI) | payer MEDICARE, OTHER, SELFPAY ==
[2019-12-03 16:15] VITALS: BMI 28.4
[2020-06-07 17:54] LABS: Absolute Lymphocyte Count 1.57 X10^3/uL (0.83-4.51); Absolute Neutrophil Count 6.6 X10^3/uL (2.0-7.7); Basophil# 0.06 X10^3/uL; Basophil% 0.7 % (0-1); Eosinophil# 0.14 X10^3/uL; Eosinophils% 1.5 % (0-5); Hematocrit 47.3 % (40-54); Hemoglobin 15.6 g/dL (13.0-16.5); Lymphocyte # 1.57 X10^3/ul (4.0); Lymphocyte % 17.1 % (19-41); Mean Corpuscular Hgb 29.2 pg (27.0-32.0); Mean Corpuscular Volume 88.6 fL (80-94); Mean Platelet Vol. 10.7 fl (6.2-12.0); Monocyte# 0.77 X10^3/uL; Monocyte% 8.4 % (0-10); NRBC Flagged by Analyzer 0 % (0-5); Neutrophil # 6.62 X10^3/uL (2.7-7.7); Neutrophil % 71.9 % (47-70); Platelet Count 279 K/mm3 (150-450); RBC Distribution Width CV 12.5 % (11.6-14.6); RBC Distribution Width SD 40.6 fl (35.1-43.9); Red Blood Count 5.34 M/mm3 (4.6-6.2); White Blood Count 9.2 K/mm3 (4.4-11.0)
[2020-06-07 18:38] LABS: ALB/GLOB Ratio 1.3 RATIO (0.9-2.4); AST(SGOT) 52 U/L (15-37); Alanine Aminotransfer ALT/SGPT 40 U/L (16-61); Albumin, Serum 4.1 g/dL (3.2-5.0); Alkaline Phosphatase 94 U/L (45-117); Anion Gap 5 (5-15); BUN 24 mg/dL (7-18); BUN/Creat Ratio 22.6 RATIO (10-20); Calcium,Total 9.5 mg/dL (8.5-10.1); Chloride 107 mmol/L (98-107); Creatinine, Serum 1.06 mg/dL (0.70-1.30); EST Glomerular Filtration Rate 73 mL/min (>60); Est Glom Filt Rate - Afr Amer 89 mL/min (>60); Globulin 3.2 g/dL (2.2-4.2); Glucose 87 mg/dL (74-106); Potassium 4.2 mmol/L (3.5-5.1); Protein, Total 7.3 g/dL (6.4-8.2); Sodium Level 140 mmol/L (136-145)
== END ==
PROVIDERS: PCP Family Medicine Geriatric Medicine; Referring Provider Internal Medicine Rheumatology; Visit Provider Internal Medicine Rheumatology
DX: M06.4 Inflammatory polyarthropathy (principal); M21.6X1 Other acquired deformities of right foot; F41.9 Anxiety disorder, unspecified; F32.9 Major depressive disorder, single episode, unspecified; I10 Essential (primary) hypertension; N40.1 Benign prostatic hyperplasia with lower urinary tract symptoms; K76.0 Fatty (change of) liver, not elsewhere classified; Z79.899 Other long term (current) drug therapy
CPT/HCPCS: 36415; 80053; 85025

== ENCOUNTER → 2020-06-17 09:28 | Outpatient (CLI) | payer MEDICARE, OTHER, SELFPAY ==
[2019-12-03 16:15] VITALS: BMI 28.4
--- NOTE | 2020-06-17 09:34 | STEWCON_ITS ---
Reason For Study: Chest Pain Stress Results Protocol: Aric Protocol WITH DEFINITY Maximum Predicted HR: 151 bpm Target HR: 128 bpm % Maximum Predicted HR: 85 % DurationHeart Rate Stage (mm:ss) (bpm) BP Comment Baseline 55 138/90No Chest Pain; 4 ML Diluted Definity Aric Protocol Stage I 3:00 93 160/88No Chest Pain Aric Protocol Stage II 3:00 121 174/80No Chest Pain; Mild Dyspnea Aric Protocol Stage III 0:35 129 / No Chest Pain; Mod Dyspnea Recovery 78 146/92No Chest Pain Stress Duration: 6:35 mm:ss Maximum Stress HR: 129 bpm METS: 8 Baseline Echocardiogram Findings Stress Echo Wall motion Data Resting WM Intermediate WM Stress WM Interpretation Summary Exercise stress echo. 69-year-old man with a history of hypertension previous COVID-19. Stress protocol: Resting EKG demonstrates normal sinus rhythm with a rate of 57 bpm premature atrial complexes are noted. Resting blood pressure is 1 and 38 over 90 mmHg. The patient exercised according to regular Aric protocol for a total duration of 6 minutes and 35 seconds. The maximum heart rate attained 129 bpm which was 85% of max impacted heart rate patient completed stage III of the Aric protocol. The maximum workload was 8.8 metabolic equivalents. At rest there were no ST or T wave changes noted suggest ischemia at peak exercise no ST changes were noted to meet the criteria for ischemia. The test was terminated due to the target heart rate being achieved. Stress protocol: Resting echocardiogram demonstrated preserved ejection fraction. Above was performed with Definity enhancement. The estimated ejection fraction was 55%. Stress echocardiographic images were obtained after peak exercise. The peak ejection fraction was 65%. No wall motion abnormalities were noted. There was thickening of all jesus noted. Conclusion: Exercise stress echocardiogram with no evidence of ischemia at a moderate workload of 8.8 METS. Normal resting and stress echocardiographic images. No angina noted No arrhythmias noted. Ordering Physician: Miki Collazo Chi Referring Physician: Shankar Cotton Performed By: Marilee Montoya, TAMIKO, RVT
== END ==
PROVIDERS: PCP Family Medicine Geriatric Medicine; Referring Provider Family Medicine Geriatric Medicine; Visit Provider Family Medicine Geriatric Medicine
DX: R07.9 Chest pain, unspecified (principal)
CPT/HCPCS: 93017; 93350; Q9957; A4216; C8928

== ENCOUNTER → 2020-07-01 09:56 | Outpatient (CLI) | payer MEDICARE, OTHER, SELFPAY ==
[2020-06-24 13:09] VITALS: BMI 27.6
--- NOTE | 2020-07-01 09:57 | CDU_ITS ---
Reason For Study: Dizziness Rt. Velocities/BP Lt. Velocities/BP Prox CCA 138/27 cm/sec. Prox CCA 90/19 cm/sec. Mid CCA 98/20 cm/sec. Mid CCA 90/24 cm/sec. Dist CCA 88/22 cm/sec. Dist CCA 81/19 cm/sec. Prox ICA 50/14 cm/sec. Prox ICA 44/19 cm/sec. Mid ICA 61/23 cm/sec. Mid ICA 61/23 cm/sec. Dist ICA 70/20 cm/sec. Dist ICA 61/20 cm/sec. Rt. ICA/CCA = 0.7. Lt. ICA/CCA = 0.7. Prox ECA 103/18 cm/sec. Prox ECA 84/12 cm/sec. Rt. Vert. 36/10 cm/sec. Lt. Vert. 40/8 cm/sec. Right Extracranial There is intimal thickening but no significant atherosclerotic plaque noted in the right common carotid artery. There is heterogeneous, irregular atherosclerotic plaque noted in the right internal carotid artery. There is no significant atherosclerotic plaque noted in the right external carotid artery. Antegrade flow is noted in the right vertebral artery. Left Extracranial There is intimal thickening but no significant atherosclerotic plaque noted in the left common carotid artery. There is intimal thickening but no significant atherosclerotic plaque noted in the left internal carotid artery. There is no significant atherosclerotic plaque noted in the left external carotid artery. Antegrade flow is noted in the left vertebral artery. Procedure Carotid Duplex 60369. Exam performed in department. Interpretation Summary Minimal irregular plaque at the proximal right internal carotid artery with less than 50% stenosis Less than 50% stenosis right external carotid No hemodynamically significant plaque at the proximal left internal carotid with less than 50% stenosis Less than 50% stenosis left external carotid Patent and antegrade vertebrals bilaterally Ordering Physician: Jigna Uriostegui Referring Physician: Miki Collazo Chi Performed By: Daisy Carrizales, RDCS, RVT
== END ==
PROVIDERS: PCP Family Medicine Geriatric Medicine; Referring Provider Physician Assistant Medical; Visit Provider Physician Assistant Medical
DX: R42 Dizziness and giddiness (principal)
CPT/HCPCS: 93880

== ENCOUNTER → 2020-08-09 10:26 | Outpatient (CLI) | payer MEDICARE, OTHER, SELFPAY ==
[2020-06-24 13:09] VITALS: BMI 27.6
--- NOTE | 2020-08-09 10:31 | RAD_ITS ---
STUDY: X-RAY - RIGHT KNEE REASON FOR EXAM: Lateral right knee pain for 3 weeks. TECHNIQUE: 4 view(s) of the knee. COMPARISON: Radiographs 08/21/2018. FINDINGS: Normal visualized distal femur. Normal visualized proximal tibia and fibula. Normal proximal tibiofibular articulation. There is mild joint space narrowing of the medial femorotibial compartment. Normal lateral femorotibial compartment. There is mild to moderate joint space narrowing of the patellofemoral articulation. The soft tissue structures are unremarkable. 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 Electronically Signed: Umair Bryant MD at 12:16 EST Tel , Service support ,
== END ==
PROVIDERS: PCP Family Medicine Geriatric Medicine; Visit Provider Family Medicine Geriatric Medicine
DX: M17.11 Unilateral primary osteoarthritis, right knee (principal)
CPT/HCPCS: 73564

== ENCOUNTER → 2020-11-18 09:34 | Outpatient (CLI) | payer MEDICARE, OTHER, SELFPAY ==
[2020-06-24 13:09] VITALS: BMI 27.6
[2020-11-18 12:15] LABS: Absolute Lymphocyte Count 1.77 X10^3/uL (0.83-4.51); Absolute Neutrophil Count 4.2 X10^3/uL (2.0-7.7); Basophil# 0.06 X10^3/uL; Basophil% 0.9 % (0-1); Eosinophil# 0.11 X10^3/uL; Eosinophils% 1.6 % (0-5); Hematocrit 46.5 % (40-54); Hemoglobin 15.5 g/dL (13.0-16.5); Lymphocyte # 1.77 X10^3/ul (0.83-4.51); Mean Corp Hgb Conc 33.3 g/dL (32-36); Mean Corpuscular Hgb 28.3 pg (27.0-32.0); Mean Platelet Vol. 10.5 fl (6.2-12.0); Monocyte# 0.61 X10^3/uL; Monocyte% 8.9 % (0-10); NRBC Flagged by Analyzer 0 % (0-5); Neutrophil # 4.23 X10^3/uL (2.7-7.7); Platelet Count 265 K/mm3 (150-450); RBC Distribution Width CV 11.9 % (11.6-14.6); RBC Distribution Width SD 36.9 fl (35.1-43.9); Red Blood Count 5.47 M/mm3 (4.6-6.2); White Blood Count 6.8 K/mm3 (4.4-11.0)
[2020-11-18 12:32] LABS: Vitamin D,25 Hydroxy 20.6 ng/mL
[2020-11-18 12:39] LABS: ALB/GLOB Ratio 1.2 RATIO (0.9-2.4); AST(SGOT) 38 U/L (15-37); Alanine Aminotransfer ALT/SGPT 34 U/L (16-61); Albumin, Serum 3.9 g/dL (3.2-5.0); Alkaline Phosphatase 87 U/L (45-117); Anion Gap 4 (5-15); BUN 16 mg/dL (7-18); BUN/Creat Ratio 17.8 RATIO (10-20); Calcium,Total 9.2 mg/dL (8.5-10.1); Chloride 104 mmol/L (98-107); EST Glomerular Filtration Rate 89 mL/min (>60); Est Glom Filt Rate - Afr Amer 107 mL/min (>60); Globulin 3.2 g/dL (2.2-4.2); Glucose 81 mg/dL (74-106); Potassium 4.2 mmol/L (3.5-5.1); Protein, Total 7.1 g/dL (6.4-8.2); Sodium Level 137 mmol/L (136-145); Thyroid Stim Hormone (TSH) 2.24 uIU/mL (0.358-3.74)
== END ==
PROVIDERS: PCP Family Medicine Geriatric Medicine; Visit Provider Family Medicine Geriatric Medicine
DX: E23.6 Other disorders of pituitary gland (principal); E55.9 Vitamin D deficiency, unspecified; I10 Essential (primary) hypertension
CPT/HCPCS: 36415; 80053; 82306; 84403; 84443; 85025

== ENCOUNTER → 2020-12-21 16:56 | Outpatient (CLI) | payer MEDICARE, OTHER, SELFPAY ==
[2020-06-24 13:09] VITALS: BMI 27.6
[2020-12-21 17:42] LABS: Absolute Lymphocyte Count 1.37 X10^3/uL (0.83-4.51); Basophil# 0.07 X10^3/uL; Basophil% 1.3 % (0-1); Eosinophil# 0.23 X10^3/uL; Eosinophils% 4.4 % (0-5); Hemoglobin 15.1 g/dL (13.0-16.5); Lymphocyte # 1.37 X10^3/ul (0.83-4.51); Mean Corp Hgb Conc 32.8 g/dL (32-36); Mean Corpuscular Hgb 27.9 pg (27.0-32.0); Mean Platelet Vol. 10.4 fl (6.2-12.0); Monocyte# 0.58 X10^3/uL; NRBC Flagged by Analyzer 0 % (0-5); Neutrophil # 2.99 X10^3/uL (2.7-7.7); Neutrophil % 56.9 % (47-70); Platelet Count 236 K/mm3 (150-450); Red Blood Count 5.41 M/mm3 (4.6-6.2); White Blood Count 5.3 K/mm3 (4.4-11.0)
[2020-12-21 18:28] LABS: ALB/GLOB Ratio 1.3 RATIO (0.9-2.4); AST(SGOT) 41 U/L (15-37); Alanine Aminotransfer ALT/SGPT 35 U/L (16-61); Alkaline Phosphatase 90 U/L (45-117); Anion Gap 5 (5-15); BUN 20 mg/dL (7-18); BUN/Creat Ratio 18.3 RATIO (10-20); Calcium,Total 9.3 mg/dL (8.5-10.1); Chloride 107 mmol/L (98-107); Creatinine, Serum 1.09 mg/dL (0.70-1.30); EST Glomerular Filtration Rate 71 mL/min (>60); Est Glom Filt Rate - Afr Amer 86 mL/min (>60); Globulin 3.1 g/dL (2.2-4.2); Glucose 82 mg/dL (74-106); Potassium 4.3 mmol/L (3.5-5.1); Protein, Total 7.1 g/dL (6.4-8.2); Sodium Level 141 mmol/L (136-145)
== END ==
PROVIDERS: PCP Family Medicine Geriatric Medicine; Referring Provider Internal Medicine Rheumatology; Visit Provider Internal Medicine Rheumatology
DX: M06.4 Inflammatory polyarthropathy (principal); M21.6X1 Other acquired deformities of right foot; F41.9 Anxiety disorder, unspecified; F32.9 Major depressive disorder, single episode, unspecified; I10 Essential (primary) hypertension; N40.1 Benign prostatic hyperplasia with lower urinary tract symptoms; K76.0 Fatty (change of) liver, not elsewhere classified; Z79.899 Other long term (current) drug therapy
CPT/HCPCS: 36415; 80053; 85025

== ENCOUNTER → 2021-01-10 13:53 | Outpatient (CLI) | payer MEDICARE, OTHER, SELFPAY ==
[2020-06-24 13:09] VITALS: BMI 27.6
--- NOTE | 2021-01-10 14:00 | RAD_ITS ---
STUDY: X-RAY - LEFT HAND REASON FOR EXAM: Male, 70 years old. HAND PAIN TECHNIQUE: 3 view(s) of the hand. COMPARISON: None. FINDINGS: No acute fracture line. No acute dislocation. Small cysts/erosions at the second, third and fourth needle phalanx heads. Osteopenia. Multiregional mild joint space narrowing at the hand and wrist most severe at the first carpometacarpal joint. Soft tissue swelling at the second digit. Tiny radiopaque foreign body at the second digit near the middle phalanx. Punctate fourth digit calcification. RAD/Hand Min 3 Views IMPRESSION: Left hand acutely intact Degenerative changes predominating at the first CMC joint Second digit swelling with 1 mm radiopaque foreign body Electronically Signed: Umseh Reyna DO at 9:22 EDT Tel , Service support ,
== END ==
PROVIDERS: PCP Family Medicine Geriatric Medicine; Referring Provider Family Medicine Geriatric Medicine; Visit Provider Family Medicine Geriatric Medicine
DX: M79.609 Pain in unspecified limb (principal)
CPT/HCPCS: 73130

== ENCOUNTER 2021-01-17 04:09 | Inpatient (IN) | payer MEDICARE, OTHER, SELFPAY ==
[2020-06-24 13:09] VITALS: BMI 27.6
[2021-01-17] VITALS (15 sets, daily range): BP systolic 95–130; BP diastolic 55–85; PULSE 57–110; RESP 16–18; TEMP 36.3–37.5; O2SAT 93–100; BMI 31.2; BMI 28.6
--- NOTE | 2021-01-17 | HIP_PTH ---
PATIENT: JUVE ROLAND LOC: MS3 U#:[id number] AGE/SX: 70/M [place] [facility] [place]: Dr. Teresa Salvador MD : 1950 BED: 1 DIS: 01/18/2021 SPEC #: [id number] RECD: 01/18/21 07:55 STATUS: LUIS REQ #: [id number] BELL: 01/17/21 00:[address]: Pankaj Nelson DEPT: SURGICAL PATHOLOGY RECD BY: Brian Timmons ENTERED: 01/18/21 07:55 SP TYPE: TOTAL HIP OTHR DR: MD Dr. Gianni Eastman MD Dr. Steven Widmer, MD Dr. Tai Chi Kwok, MD Tissues: Hip, NOS Procedures: Decalcification bone/plaque Surgery Specimen Level IV Comments: @ Ordering doctor for DEC edited from to @ by PHILLIP at 01/18/21 0944 @ Ordering doctor for SUIV edited from to @ by PHILLIP at 01/18/21 0944 @ Submitting doctor edited from to @ by PHILLIP at 01/18/21 0944 HEADER OPERATION: Total hip anterior approach PRE-OP DIAGNOSIS: Closed left hip fracture TISSUE SUBMITTED: Left hip femoral neck MICROSCOPIC DIAGNOSIS Left hip, fracture: Consistent with organizing fracture site. AM:bsuter 01/24/2021 MICROSCOPIC DESCRIPTION Slides are reviewed. GROSS DESCRIPTION Received is one container labeled with the patient's name and designated left hip, femoral neck. The specimen consists of two pieces of bone. One of the larger pieces is consistent with portion of femoral neck measuring 5 x 4.5 x 2.5 cm. The smaller piece of bone measures 2.5 x 1.5 x 1 cm. No soft tissue is identified. The articular surface is smooth. Resection margin is irregular and hemorrhagic. Sausage Wrapper sections are submitted in three cassettes as follows: 1 - smaller piece off tissue, 2 & 3 - larger piece of tissue consistent with femoral neck after decalcification. / ELSY:buster 01/18/21 TC:5 CPT: 39576, 06025
--- NOTE | 2021-01-17 04:10 | RAD_ITS ---
HISTORY: fall COMPARISON: 08/31/2019 FINDINGS: # of images incl. paperwork: 4 XR Hip Unilateral with Pelvis when performed; 2-3 Views: AP pelvis with AP and crosstable lateral left hip SOFT TISSUES: Mild lateral hip edema. No radiodense soft tissue foreign body. No abnormal soft tissue mineralization. OSSEOUS: Transcervical left femoral neck fracture with 1.7 cm cephalad displacement. Left femoral head in midline with the acetabulum. Normal right hip alignment without fracture. Mild right hip joint space narrowing. Mild bilateral superior acetabular osteophyte formation. No erosion or periostitis. Normal sacroiliac and pubic symphysis alignment BONE MINERALIZATION: Unremarkable. RAD/HIP, UNI W/ Pelvis 2-3 Views IMPRESSION: Displaced left femoral neck transcervical fracture. at 0515 Reported and signed by: Soto Garcia MD Electronically Signed: Soto Garcia MD at 5:14 EDT Tel , Service support ,
--- NOTE | 2021-01-17 04:11 | EKG12_ITS ---
Test Reason : FALL Blood Pressure : / mmHG Vent. Rate : 058 BPM Atrial Rate : 058 BPM P-R Int : 160 ms QRS Dur : 100 ms QT Int : 422 ms P-R-T Axes : 058 071 034 degrees QTc Int : 414 ms Sinus bradycardia Nonspecific ST and T wave abnormality Abnormal ECG Confirmed by KIMBERLYN CLAYTON, JENNI ([id number]), makeup editor MORIS VALDEZ ([id number]) on 01/18/2021 10:34:48 AM Referred By: WILIAM Confirmed By:JENNI SOFIA MD
--- NOTE | 2021-01-17 04:12 | EX.ED.DYSGE1 ---
HPI History of Present Illness Chief Complaint: Lower Extremity Injury Informant: patient Onset/Context/Timing Onset: Today Context: Sudden Onset Timing: Continuous Current Severity: Moderate Maximum Severity: Moderate Narrative Narrative: Patient is a 70-year-old male with medical history significant for arthritis, hyperlipidemia, and claudication who presents to the emergency department with left hip injury. Patient states he was getting up to get ready for work. He went to reach for a light switch. He states that he missed and fell down 3 stairs. He landed on his left hip. He did not strike his head. He denies loss of consciousness. He states he felt like something popped. He was unable to bear weight afterwards. He states if he lays on his side, he does not have significant pain. He has no history of prior fracture. He is otherwise been in his normal state of health. PFSH PFS Medical History Asthma Atrial septal defect BPH (benign prostatic hyperplasia) Chest pain Claudication Depression Essential hypertension Family history of ischemic heart disease Family history of sudden cardiac Fatigue Hyperlipidemia Hypothyroidism Long-term use of high-risk medication Osteoarthritis SOB (shortness of breath) Umbilical hernia Umbilical hernia without obstruction and without gangrene Home Medications amlodipine 10 mg tablet 10 mg PO QDAY 09/02/17 [History Last Taken Unknown] venlafaxine 75 mg tablet 75 mg PO QDAY tab 09/02/17 [History Last Taken Unknown] prednisolone acetate (PF) 1 drp OP DAILY 09/08/19 [History Last Taken Unknown] finasteride 5 mg PO DAILY 09/25/19 [History Last Taken Unknown] aspirin 81 mg PO DAILY 01/17/21 [History Last Taken Unknown] Allergy/AdvReac Type Severity Reaction Status Date / Time No Known Allergies Allergy Verified 01/17/21 04:10 Family History Father Myocardial infarction Sudden cardiac Hypertension Cancer skin cancer Brother Myocardial infarction, Onset Age: 50 Brother Sudden cardiac , Onset Age: 30 Mother Arthritis Diabetes Surgical History History of hernia repair Social History Smoking Status: Never smoker alcohol intake: never substance use type: does not use ROS ROS ED Constitutional Constitutional ED: Denies chills or fever(s) Eyes Eyes: Denies blurry vision or change in vision ENT ENT ED: Denies ear pain or sore throat Cardiovascular Cardiovascular: Denies chest pain or palpitations Respiratory/Chest Respiratory/Chest: Denies cough, dyspnea or dyspnea on exertion Gastrointestinal Gastrointestinal: Denies abdominal pain, nausea or vomiting Genitourinary Genitourinary ED: Denies dysuria or urinary frequency Musculoskeletal Musculoskeletal: Denies arthralgias or myalgias Integumentary Denies rash Neurologic Neurologic: Denies headache(s) or paresthesias Psychiatric Psychiatric: Denies anxiety or depression Endocrine Endocrinology: Denies polydipsia or polyuria Allergic/Immunologic Allergic/Immunologic ED: Denies urticaria EXAM Physical Exam Const Vital Signs: 01/17/21 04:11 01/17/21 04:16 01/17/21 05:05 Temperature 97.6 F L 98.1 F Temperature Source Temporal Temporal Pulse Rate 59 L 57 L Respiratory Rate 18 17 Blood Pressure 95/55 L 100/63 Blood Pressure Mean 68 75 Pulse Ox 98 94 Oxygen Delivery Method Room Air Room Air Positive well nourished and well developed General Appearance ED: well developed HEENT Reports normocephalic, head/scalp atraumatic and moist mucous membranes Eyes PERRL and EOMs intact bilaterally Neck no lymphadenopathy and supple General: Negative for tenderness Chest Wall inspection of chest normal Resp normal respiratory effort and clear to auscultation bilaterally Cardio regular rate, regular rhythm and no murmurs GI normal to inspection, nondistended, normoactive bowel sounds Palpation: Negative for tender, guarding or rebound tenderness present Back/Spine no CVA tenderness Cervical Spine: Negative for cervical spine tenderness Thoracic Spine / Upper Back: Negative for thoracic spinal tenderness Extremity normal to inspection Extremity Narrative: Patient's left hip is shortened and externally rotated. He has normal pulses. Is neurovascularly intact. There is tenderness palpation. He has a small abrasion near the ankle. There is no active bleeding. General Extremety ED: Yes tenderness Neuro oriented x3 and CN's II-XII intact bilaterally Neuro Narrative: No focal deficits appreciated. Sensorium / Orientation: alert Psych mental status grossly normal Skin no rashes or lesions noted, no wounds and skin turgor normal MDM MDM MDM Narrative Medical decision making narrative: Patient presents after mechanical fall. X-rays were obtained. He does have evidence of left femoral neck fracture. Chest x-ray shows findings consistent with COPD. I did discuss the patient with Dr. Nelson, on-call for orthopedics who agrees with plan for admission, medical clearance, and operative fixation. The patient was discussed with the hospitalist. Impression 1. Mechanical fall 2. Left femoral neck fracture Lab Data Attestation: I reviewed the patient's lab results. Labs: Laboratory Results - last 24 hr 01/17/21 01/17/21 04:30 04:30 WBC 4.3 L RBC 5.23 Hgb 14.8 Hct 44.5 MCV 85.1 MCH 28.3 MCHC 33.3 RDW Std Deviation 37.0 RDW Coeff of Ariel 12.0 Plt Count 215 MPV 10.2 Immature Gran % (Auto) 0.700 Neut % (Auto) 47.4 Lymph % (Auto) 33.2 [place] % (Auto) 12.1 H Eos % (Auto) 5.4 H Baso % (Auto) 1.2 H Absolute Neuts (auto) 2.0 Absolute Lymphs (auto) 1.42 Nucleated RBC % 0 Sodium 142 Potassium 4.5 Chloride 109 H Carbon Dioxide 28.0 Anion Gap 5 BUN 19 H Creatinine 1.10 Estim Creat Clear Calc 72.65 Est GFR (MDRD) Af Amer 85 Est GFR (MDRD) Non-Af 70 BUN/Creatinine Ratio 17.3 Glucose 109 H Calcium 8.8 Radiography Chest X-Ray - ED: 1 View, Read by ED Physician, Normal, Heart, Lungs, Mediastinum, Bony Structures and Chronic Changes Diagnostic Testing: Radiology Impression Chest X-Ray 01/17/21 04:42 IMPRESSION: Mild right basilar subsegmental atelectasis or scarring. No evidence of acute cardiopulmonary process. at 0511 Reported and signed by: Soto Garcia MD Electronically Signed: Soto Garcia MD at 5:10 EDT Tel , Service support , Discharge Plan Triage Chief Complaint: Lower Extremity Injury ED Provider: London Paz Dx/Rx/DC Orders Prescriptions: No Action venlafaxine 75 mg tablet 75 mg PO QDAY RF: 0 amlodipine 10 mg tablet 10 mg PO QDAY RF: 0 prednisolone acetate (PF) 5 ML drops,suspension 1 drp OP DAILY RF: 0 finasteride 5 MG tablet 5 mg PO DAILY RF: 0 aspirin 81 mg Tablet,Chewable 81 mg PO DAILY RF: 0 Primary Care Provider: Miki Collazo Chi
[2021-01-17] MEDS: Morphine 4 MG/ML Syringe IV (04:23)
[2021-01-17] MEDS: Ondansetron 4 MG/2 ML Vial IV (04:23)
[2021-01-17 04:39] LABS: Absolute Lymphocyte Count 1.42 X10^3/uL (0.83-4.51); Basophil# 0.05 X10^3/uL; Basophil% 1.2 % (0-1); Eosinophil# 0.23 X10^3/uL; Eosinophils% 5.4 % (0-5); Hematocrit 44.5 % (40-54); Hemoglobin 14.8 g/dL (13.0-16.5); Lymphocyte # 1.42 X10^3/ul (0.83-4.51); Lymphocyte % 33.2 % (19-41); Mean Corp Hgb Conc 33.3 g/dL (32-36); Mean Corpuscular Hgb 28.3 pg (27.0-32.0); Mean Corpuscular Volume 85.1 fL (80-94); Mean Platelet Vol. 10.2 fl (6.2-12.0); Monocyte# 0.52 X10^3/uL; Monocyte% 12.1 % (0-10); NRBC Flagged by Analyzer 0 % (0-5); Neutrophil # 2.03 X10^3/uL (2.7-7.7); Neutrophil % 47.4 % (47-70); Platelet Count 215 K/mm3 (150-450); Red Blood Count 5.23 M/mm3 (4.6-6.2); White Blood Count 4.3 K/mm3 (4.4-11.0)
--- NOTE | 2021-01-17 04:42 | RAD_ITS ---
HISTORY: sob EXAMINATION/TECHNIQUE: XR Chest 1 View: COMPARISON: June 06, 2015 FINDINGS: LINES/DEVICES: None. LUNGS: No airspace consolidation. Unremarkable interstitium. No effusion. No pneumothorax. Mild linear subsegmental atelectasis in the right lung base. MEDIASTINUM: No cardiomegaly. Aortic atherosclersosis. MUSCULOSKELETAL: No acute osseous finding. RAD/Chest 1 View (Portable) IMPRESSION: Mild right basilar subsegmental atelectasis or scarring. No evidence of acute cardiopulmonary process. at 0511 Reported and signed by: Soto Garcia MD Electronically Signed: Soto Garcia MD at 5:10 EDT Tel , Service support ,
[2021-01-17 04:50] LABS: Anion Gap 5 (5-15); BUN 19 mg/dL (7-18); BUN/Creat Ratio 17.3 RATIO (10-20); Calcium,Total 8.8 mg/dL (8.5-10.1); Chloride 109 mmol/L (98-107); EST Glomerular Filtration Rate 70 mL/min (>60); Est Glom Filt Rate - Afr Amer 85 mL/min (>60); Estimated Creatinine Clearance 72.65 ml/min; Glucose 109 mg/dL (74-106); Potassium 4.5 mmol/L (3.5-5.1); Sodium Level 142 mmol/L (136-145)
[2021-01-17] MEDS: HYDROmorphone 0.5 MG/0.5 ML SYRINGE IV (05:03)
--- NOTE | 2021-01-17 05:20 | HP.PCM_ITS ---
[facility] - General General Date of Admission: 01/17/21 HPI Narrative JUVE ROLAND, is a 70 M who presents to the emergency room with left hip pain. The patient fell this morning after reaching for a light switch and landed after falling down 3 stairs, upon doing so he heard a loud pop in his left hip and was afterwards unable to bear weight. Currently the patient states his pain is 5/10 while laying flat after receiving 2 doses of IV pain medication. The patient denies chest pain, shortness of breath, nausea or vomiting or fevers or chills recently. X-ray left hip shows a left neck impacted transcervical fracture. Patient is made n.p.o., nonweightbearing and orthopedic surgeon will be consulted for surgery. [facility] Medical History (Updated 01/17/21 @ 05:[address] Gianni Granado MD) Asthma Atrial septal defect BPH (benign prostatic hyperplasia) Chest pain Claudication Depression Essential hypertension Family history of ischemic heart disease Family history of sudden cardiac Fatigue Hyperlipidemia Hypothyroidism Long-term use of high-risk medication Osteoarthritis SOB (shortness of breath) Umbilical hernia Umbilical hernia without obstruction and without gangrene Home Medications amlodipine 10 mg tablet 10 mg PO QDAY 09/02/17 [History Last Taken Unknown] venlafaxine 75 mg tablet 75 mg PO QDAY tab 09/02/17 [History Last Taken Unknown] prednisolone acetate (PF) 1 drp OP DAILY 09/08/19 [History Last Taken Unknown] finasteride 5 mg PO DAILY 09/25/19 [History Last Taken Unknown] aspirin 81 mg PO DAILY 01/17/21 [History Last Taken Unknown] Allergy/AdvReac Type Severity Reaction Status Date / Time No Known Allergies Allergy Verified 01/17/21 04:10 Family History Father Myocardial infarction Sudden cardiac Hypertension Cancer skin cancer Brother Myocardial infarction, Onset Age: 50 Brother Sudden cardiac , Onset Age: 30 Mother Arthritis Diabetes Surgical History History of hernia repair Social History Smoking Status: Never smoker alcohol intake: never substance use type: does not use ROS Constitutional Constitutional: Denies chills, fatigue or fever(s) Eyes Eyes: Denies blurry vision ENT HEENT: Denies abnormal hearing Cardiovascular Cardiovascular: Denies chest pain Respiratory/Chest Respiratory/Chest: Denies shortness of breath at rest Gastrointestinal Gastrointestinal: Denies abdominal pain Genitourinary Genitourinary: Denies dysuria Musculoskeletal Musculoskeletal: Reports extremity pain, joint pain, joint stiffness, joint swelling and limited range of motion Neurologic Neurologic: Denies abnormal speech or confusion Psychiatric Psychiatric: Denies depression Hematologic/Lymphatic Hematologic/Lymphatic: Denies easy bleeding Vital Signs Vital Signs Vital Signs: 01/17/21 04:11 01/17/21 04:16 01/17/21 05:05 Temperature 97.6 F L 98.1 F Temperature Source Temporal Temporal Pulse Rate 59 L 57 L Respiratory Rate 18 17 Blood Pressure 95/55 L 100/63 Blood Pressure Mean 68 75 Pulse Ox 98 94 Oxygen Delivery Method Room Air Room Air Weight Weight: 243 lb 2.718 oz Body Mass Index (BMI) 31.2 Physical Exam Const oriented x3 HEENT normocephalic and head/scalp atraumatic Eyes PERRL and EOMs intact bilaterally Neck supple Lymph Lymphatic: no lymphadenopathy noted Resp normal respiratory effort Cardio regular rate, regular rhythm, S1 normal heart sound, S2 normal heart sound, no murmurs, no rub and no gallops GI normal to inspection, nondistended, normoactive bowel sounds Extremity Extremity Narrative: left hip tenderness/swelling present Skin Rashes: no rashes Neuro CN's II-XII intact bilaterally Psych affect normal Appearance: appropriate Results Lab / Micro Data Result Diagrams: 01/17/21 04:30 01/17/21 04:30 Labs: Laboratory Results - last 24 hr 01/17/21 01/17/21 04:30 04:30 WBC 4.3 L RBC 5.23 Hgb 14.8 Hct 44.5 MCV 85.1 MCH 28.3 MCHC 33.3 RDW Std Deviation 37.0 RDW Coeff of Ariel 12.0 Plt Count 215 MPV 10.2 Immature Gran % (Auto) 0.700 Neut % (Auto) 47.4 Lymph % (Auto) 33.2 [place] % (Auto) 12.1 H Eos % (Auto) 5.4 H Baso % (Auto) 1.2 H Absolute Neuts (auto) 2.0 Absolute Lymphs (auto) 1.42 Nucleated RBC % 0 Sodium 142 Potassium 4.5 Chloride 109 H Carbon Dioxide 28.0 Anion Gap 5 BUN 19 H Creatinine 1.10 Estim Creat Clear Calc 72.65 Est GFR (MDRD) Af Amer 85 Est GFR (MDRD) Non-Af 70 BUN/Creatinine Ratio 17.3 Glucose 109 H Calcium 8.8 Radiology Impression Hip/Pelvis X-Ray 01/17/21 04:10 IMPRESSION: Displaced left femoral neck transcervical fracture. at 0515 Reported and signed by: Soto Garcia MD Electronically Signed: Soto Garcia MD at 5:14 EDT Tel , Service support , Chest X-Ray 01/17/21 04:42 IMPRESSION: Mild right basilar subsegmental atelectasis or scarring. No evidence of acute cardiopulmonary process. at 0511 Reported and signed by: Soto Garcia MD Electronically Signed: Soto Garcia MD at 5:10 EDT Tel , Service support , Assessment & Plan Assessment/Plan (1) Essential hypertension: (2) Hyperlipidemia: QUALIFIERS: Hyperlipidemia type: unspecified Qualified Code(s): E78.5 - Hyperlipidemia, unspecified (3) Closed left hip fracture: PLAN: 1. Left hip fracture?admit patient to general medical floor, consult Angie Rodney .5-1 mg IV every 2 to 3 hours as needed pain. CBC BMP in the a.m. consult rehabilitation caseworker for discharge planning following hip p rocedure. 2. Hyperlipidemia?continue statin medication 3. Hypertension?continue routine home medications 4. DVT prophylaxis?plan to start low molecular weight heparin following surgery
[2021-01-17] MEDS: 0.9% Normal Saline 1,000 ML 100 ML IV (06:48)
[2021-01-17 06:54] LABS: Absolute Lymphocyte Count 1.19 X10^3/uL (0.83-4.51); Absolute Neutrophil Count 5.8 X10^3/uL (2.0-7.7); Basophil# 0.05 X10^3/uL; Basophil% 0.6 % (0-1); Eosinophil# 0.11 X10^3/uL; Eosinophils% 1.4 % (0-5); Hematocrit 44.2 % (40-54); Hemoglobin 14.8 g/dL (13.0-16.5); Lymphocyte # 1.19 X10^3/ul (0.83-4.51); Lymphocyte % 15.4 % (19-41); Mean Corp Hgb Conc 33.5 g/dL (32-36); Mean Corpuscular Hgb 28.2 pg (27.0-32.0); Mean Corpuscular Volume 84.2 fL (80-94); Mean Platelet Vol. 10.1 fl (6.2-12.0); Monocyte# 0.59 X10^3/uL; Monocyte% 7.6 % (0-10); NRBC Flagged by Analyzer 0 % (0-5); Neutrophil # 5.76 X10^3/uL (2.7-7.7); Neutrophil % 74.5 % (47-70); Platelet Count 211 K/mm3 (150-450); RBC Distribution Width CV 12.1 % (11.6-14.6); RBC Distribution Width SD 36.7 fl (35.1-43.9); Red Blood Count 5.25 M/mm3 (4.6-6.2); White Blood Count 7.7 K/mm3 (4.4-11.0)
[2021-01-17] MEDS: HYDROmorphone 1 MG/ML Syringe IV ×2 (07:03→10:38)
--- NOTE | 2021-01-17 07:24 | NURSING ---
[id number] Nelson on the phone. He gave order to get consent for left hip hemiarthroplasty vs. left total hip
[2021-01-17 07:43] LABS: Anion Gap 5 (5-15); BUN 19 mg/dL (7-18); BUN/Creat Ratio 17.9 RATIO (10-20); Calcium,Total 8.8 mg/dL (8.5-10.1); Chloride 110 mmol/L (98-107); Creatinine, Serum 1.06 mg/dL (0.70-1.30); EST Glomerular Filtration Rate 73 mL/min (>60); Est Glom Filt Rate - Afr Amer 89 mL/min (>60); Estimated Creatinine Clearance 75.39 ml/min; Glucose 123 mg/dL (74-106); Potassium 4.7 mmol/L (3.5-5.1); Sodium Level 140 mmol/L (136-145)
--- NOTE | 2021-01-17 09:50 | CASEMGMT ---
KALEY MCINTYRE Assessment: Face to Face with pt for initial transition planning/care coordination assessment. KALEY MCINTYRE introduced self and role at [facility], pt voices understanding and consents to assessment. Pt is A/O x4 and answers all questions appropriately at this time. Pt lying in bed in no distress. Care providers, pharmacy, and demographics verified/updated. Admitting Dx: L hip fx PCP: Zay Specialists:Bhavani, cardio Preferred [facility]acy: [facility] Insurance: [facility], [place] Prescription Benefit: yes LW/HPOA: Pt denies having a LW/DPOA. LNOK: Johanna Rutherford, Living Arrangements: Pt lives with in a single story house with a ramp to enter. Pt was I in ADL's and denies concerns at home. Transportation: Pt previously drove self and denies concerns with transportation. Pt states his is able to transport him to medical appts. DME/HHC/SNF: Pt states he has a standard walker and FWW walker at home. Pt does not use AD. Pt denies history of HHC or SNF stay. 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 Pt states no concerns with going home at time of dc. Pt states no further concerns/needs. CM to follow therapy for outpt needs vs HHC. Pt states he is not interested in any s/t SNF stay. Advised pt to ask CM if any further question/concerns/needs arise, voices understanding. Pt Goal: Home Plan: Home with outpt therapy vs HHC.
[2021-01-17] MEDS: 0.9% Saline Lock 10 ML Syringe IV ×2 (10:39→21:11)
--- NOTE | 2021-01-17 12:18 | PN.HOSP_ITS ---
Subjective Subjective Patient seen and examined. He was admitted with a complaint of mechanical fall and sustained a right hip fracture. He is awaiting surgery today. He had no complaints and said pain was well controlled though his pain medication was starting to wear off. Review of systems otherwise negative. Objective Data Objective Data Vital Signs: Vital Signs Temp Pulse Resp BP Pulse Ox 97.8 F 110 H 16 104/64 95 01/17/21 08:57 01/17/21 08:57 01/17/21 08:57 01/17/21 08:57 01/17/21 08:57 Oxygen Delivery Method Room Air Weight: 223 lb 5.252 oz Body Mass Index (BMI) 28.6 Intake & Output: Intake and Output for Last 24 Hours 01/15/21 01/16/21 01/17/21 23:59 23:59 23:59 Intake Total 500 / 500 Balance 500 / 500 Lab / Micro Data Result Diagrams: 01/17/21 06:40 01/17/21 06:40 Labs: Laboratory Results - last 24 hr 01/17/21 01/17/21 01/17/21 04:30 04:30 04:30 WBC 4.3 L RBC 5.23 Hgb 14.8 Hct 44.5 MCV 85.1 MCH 28.3 MCHC 33.3 RDW Std Deviation 37.0 RDW Coeff of Ariel 12.0 Plt Count 215 MPV 10.2 Immature Gran % (Auto) 0.700 Neut % (Auto) 47.4 Lymph % (Auto) 33.2 [place] % (Auto) 12.1 H Eos % (Auto) 5.4 H Baso % (Auto) 1.2 H Absolute Neuts (auto) 2.0 Absolute Lymphs (auto) 1.42 Nucleated RBC % 0 Sodium 142 Potassium 4.5 Chloride 109 H Carbon Dioxide 28.0 Anion Gap 5 BUN 19 H Creatinine 1.10 Estim Creat Clear Calc 72.65 Est GFR (MDRD) Af Amer 85 Est GFR (MDRD) Non-Af 70 BUN/Creatinine Ratio 17.3 Glucose 109 H Calcium 8.8 Blood Type O POSITIVE Antibody Screen NEGATIVE 01/17/21 01/17/21 06:40 06:40 WBC 7.7 RBC 5.25 Hgb 14.8 Hct 44.2 MCV 84.2 MCH 28.2 MCHC 33.5 RDW Std Deviation 36.7 RDW Coeff of Ariel 12.1 Plt Count 211 MPV 10.1 Immature Gran % (Auto) 0.500 Neut % (Auto) 74.5 H Lymph % (Auto) 15.4 L [place] % (Auto) 7.6 Eos % (Auto) 1.4 Baso % (Auto) 0.6 Absolute Neuts (auto) 5.8 Absolute Lymphs (auto) 1.19 Nucleated RBC % 0 Sodium 140 Potassium 4.7 Chloride 110 H Carbon Dioxide 25.0 Anion Gap 5 BUN 19 H Creatinine 1.06 Estim Creat Clear Calc 75.39 Est GFR (MDRD) Af Amer 89 Est GFR (MDRD) Non-Af 73 BUN/Creatinine Ratio 17.9 Glucose 123 H Calcium 8.8 Blood Type Antibody Screen Radiography Diagnostic Testing: Radiology Impression Hip/Pelvis X-Ray 01/17/21 04:10 IMPRESSION: Displaced left femoral neck transcervical fracture. at 0515 Reported and signed by: Soto Garcia MD Electronically Signed: Soto Garcia MD at 5:14 EDT Tel , Service support , Chest X-Ray 01/17/21 04:42 IMPRESSION: Mild right basilar subsegmental atelectasis or scarring. No evidence of acute cardiopulmonary process. at 0511 Reported and signed by: Soto Garcia MD Electronically Signed: Soto Garcia MD at 5:10 EDT Tel , Service support , Physical Exam Const alert, oriented x3 and no apparent distress Exam Limitations: no limitations HEENT normocephalic, head/scalp atraumatic and moist oral mucous membranes Head and Scalp: normocephalic Eyes PERRL and EOMs intact bilaterally Neck no lymphadenopathy and supple Lymph Lymphatic: no lymphadenopathy noted Resp normal respiratory effort, no retractions, no use of accessory muscles and clear to auscultation bilaterally Cardio regular rate, regular rhythm, S1 normal heart sound, S2 normal heart sound and no murmurs GI normal to inspection, nondistended, normoactive bowel sounds Extremity Extremity Narrative: LLE shortened and externally rotated Peripheral Pulses: Yes pulses 2+ throughout Skin no rashes or lesions noted Rashes: no rashes Neuro oriented x3 and CN's II-XII intact bilaterally Sensorium / Orientation: awake and alert Psych affect normal Appearance: appropriate Assessment & Plan Assessment/Plan (1) Essential hypertension: (2) Hyperlipidemia: QUALIFIERS: Hyperlipidemia type: unspecified Qualified Code(s): E78.5 - Hyperlipidemia, unspecified (3) Closed left hip fracture: PLAN: #Left hip fracture due to mechanical fall * Pain fairly well controlled. On IV Dilaudid for pain * Orthopedic surgery on board. For surgery later today. * PT OT on board. Fall precautions. * NSQIP assessment for patient showed a below average risk of serious complication (2.6%) and below average risk of any complication (3%) as well as a 0.1% risk of cardiac complication, which was also below average. Patient cleared for surgery with mild to moderate risk. * EKG on admission showed mild sinus bradycardia with HR of 58 and CXR showed mild basilar subsegmental ateletasis or scarring. * #History of hyperlipidemia: On statin #Hypertension: On amlodipine and aspirin #Depression : On venlafaxine #DVT prophylaxis: Currently on SCDs. Will depend on surgery preference after surgery. Charges/Coding Visit Charges Inpatient E&M: 07410 Subs Hosp L2
--- NOTE | 2021-01-17 12:44 | PCM.CONS.GEN ---
Assessment & Plan Assessment/Plan (1) Closed left hip fracture: QUALIFIERS: Encounter type: initial encounter Qualified Code(s): S72.002A - Fracture of unspecified part of neck of left femur, initial encounter for closed fracture PLAN: Diagnostic studies: X-rays were reviewed from [facility] of the left hip which did reveal mild degenerative changes with joint space narrowing of the left hip joint. There is a displaced transcervical femoral neck fracture with shortened left hip on AP pelvis. No other appreciable fractures were seen. No lytic or blastic lesions. Assessment/plan: 1. Displaced left hip transcervical femoral neck fracture: At this time I did discuss treatment options with Dr. Pankaj Nelson. Due to patient's nature of the injury and fracture pattern we are recommending that we proceed with a left total hip arthroplasty. I did discuss and review with the patient all treatment options including surgical versus nonsurgical. Patient wishes to proceed with above-stated procedure. Potential risks, benefits, and complications of this procedure were discussed in detail including but not limited to , infection, nerve and blood vessel damage, persistent pain, numbness, tingling, paresthesias, blood clot, pulmonary embolism, and requirement for further surgery. The patient expressed full understanding has no further questions for the doctor. Patient does agree to proceed with the above-stated procedure and has signed the surgery consent form. Surgery consent form has been placed on the chart. Pain is been well controlled at this time. Preoperative antibiotics and joint injection has already been ordered. Discussed in detail postoperative plan with the patient. Discussed case with the hospitalist and at this time patient has been cleared for surgical standpoint. He has had previous stress test May 2020 which showed no signs of ischemia. Is also had previous carotid studies in the past. All questions were answered with the patient. Patient has no evidence of previous DVTs. Plan will be for recommended aspirin 81 mg twice daily for 4 weeks postoperatively for DVT prophylaxis. He currently takes a daily 81 mg aspirin. Patient will continue n.p.o. and plan for surgery this afternoon. HPI Consult Data Date of Consult: 01/17/21 HPI Narrative Reason for Consultation: Left hip fracture HPI Narrative: JUVE ROLAND, is a 70 M who presented to the emergency department this morning after he was getting ready for work when he reached for a light switch when he missed the step and fell down approximately three steps. Patient landed on his left hip and felt a pop. He denies hitting his head and denies pain in any other sites. He reports that he was unable to bear weight after the injury. He also states that he has had no prior left hip complications before the fall. Patient is still currently working at [employer]. Patient denies any numbness and tingling down his legs. Denies any chest pain or shortness of breath. Patient has medical history pertinent for benign prostatic hyperplasia, claudication, depression, hypertension. He has history of occasional lightheadedness in which she has been worked up by cardiology. Patient sees Dr. Beckham. He has had a recent echocardiogram in May 2020 which showed no evidence of ischemia. Patient's pain currently is been controlled on medications. He has been n.p.o. since the injury. He states his last meal was last evening. [facility] Medical History (Updated 01/17/21 @ 12:50 by Samson MCLAUGHLIN PA-C) Asthma Atrial septal defect BPH (benign prostatic hyperplasia) Chest pain Claudication Depression Essential hypertension Family history of ischemic heart disease Family history of sudden cardiac Fatigue Hyperlipidemia Hypertension Hypothyroidism Long-term use of high-risk medication Osteoarthritis SOB (shortness of breath) Umbilical hernia Umbilical hernia without obstruction and without gangrene Home Medications amlodipine 10 mg tablet 10 mg PO QDAY 09/02/17 [History Last Taken Unknown] venlafaxine 75 mg tablet 75 mg PO QDAY tab 09/02/17 [History Last Taken Unknown] prednisolone acetate (PF) 1 drp OP DAILY 09/08/19 [History Last Taken Unknown] finasteride 5 mg PO DAILY 09/25/19 [History Last Taken Unknown] Keflex 500 mg 01/17/21 [History Last Taken 01/16/21 22:00] aspirin 81 mg PO DAILY 01/17/21 [History Last Taken Unknown] cholecalciferol (vitamin D3) 125 mcg PO QWEEK 01/17/21 [History Last Taken 01/16/21 10:00 125 mcg] doxycycline hyclate 100 mg 01/17/21 [History Last Taken 01/16/21 22:00 100 mg] hydroxychloroquine 200 mg PO BID 01/17/21 [History Last Taken 01/16/21 22:00 200 mg] tamsulosin [Flomax] 0.4 mg PO DAILY 01/17/21 [History Last Taken 08/16/20 17:00] Allergy/AdvReac Type Severity Reaction Status Date / Time No Known Allergies Allergy Verified 01/17/21 04:10 Family History Father Myocardial infarction Sudden cardiac Hypertension Cancer skin cancer Brother Myocardial infarction, Onset Age: 50 Brother Sudden cardiac , Onset Age: 30 Mother Arthritis Diabetes Surgical History History of hernia repair Social History (Updated 01/17/21 @ 06:59 by Dalila Pruett) current occupational status: employed Smoking Status: Never smoker alcohol intake: never substance use type: does not use Physical Exam Narrative This is a pleasant 70-year-old male in no acute distress. He is currently been nonweightbearing. Left lower extremity is shortened and externally rotated when compared to the right. There is a small abrasion over the left lateral ankle. He is nontender to palpation over the medial, anterior, lateral, posterior knee. He does complain of pain in the anterior thigh extending down to the knee. There are no abrasions to the left hip. Mild tenderness to palpation of the left lateral hip. Sensation intact to light touch to saphenous, sural, superficial/deep peroneal, and tibial distribution. Patient is able to actively plantarflex and dorsiflex. Capillary refills less than 2 seconds. Pulses 2+ in the ankle and foot. Const alert, oriented x3 and no apparent distress Lab / Micro Data Result Diagrams: 01/17/21 06:40 01/17/21 06:40 Labs: Laboratory Results - last 24 hr 01/17/21 01/17/21 01/17/21 04:30 04:30 04:30 WBC 4.3 L RBC 5.23 Hgb 14.8 Hct 44.5 MCV 85.1 MCH 28.3 MCHC 33.3 RDW Std Deviation 37.0 RDW Coeff of Ariel 12.0 Plt Count 215 MPV 10.2 Immature Gran % (Auto) 0.700 Neut % (Auto) 47.4 Lymph % (Auto) 33.2 [place] % (Auto) 12.1 H Eos % (Auto) 5.4 H Baso % (Auto) 1.2 H Absolute Neuts (auto) 2.0 Absolute Lymphs (auto) 1.42 Nucleated RBC % 0 Sodium 142 Potassium 4.5 Chloride 109 H Carbon Dioxide 28.0 Anion Gap 5 BUN 19 H Creatinine 1.10 Estim Creat Clear Calc 72.65 Est GFR (MDRD) Af Amer 85 Est GFR (MDRD) Non-Af 70 BUN/Creatinine Ratio 17.3 Glucose 109 H Calcium 8.8 Blood Type O POSITIVE Antibody Screen NEGATIVE 01/17/21 01/17/21 06:40 06:40 WBC 7.7 RBC 5.25 Hgb 14.8 Hct 44.2 MCV 84.2 MCH 28.2 MCHC 33.5 RDW Std Deviation 36.7 RDW Coeff of Ariel 12.1 Plt Count 211 MPV 10.1 Immature Gran % (Auto) 0.500 Neut % (Auto) 74.5 H Lymph % (Auto) 15.4 L [place] % (Auto) 7.6 Eos % (Auto) 1.4 Baso % (Auto) 0.6 Absolute Neuts (auto) 5.8 Absolute Lymphs (auto) 1.19 Nucleated RBC % 0 Sodium 140 Potassium 4.7 Chloride 110 H Carbon Dioxide 25.0 Anion Gap 5 BUN 19 H Creatinine 1.06 Estim Creat Clear Calc 75.39 Est GFR (MDRD) Af Amer 89 Est GFR (MDRD) Non-Af 73 BUN/Creatinine Ratio 17.9 Glucose 123 H Calcium 8.8 Blood Type Antibody Screen Radiology Impression Hip/Pelvis X-Ray 01/17/21 04:10 IMPRESSION: Displaced left femoral neck transcervical fracture. at 0515 Reported and signed by: Soto Garcia MD Electronically Signed: Soto Garcia MD at 5:14 EDT Tel , Service support , Chest X-Ray 01/17/21 04:42 IMPRESSION: Mild right basilar subsegmental atelectasis or scarring. No evidence of acute cardiopulmonary process. at 0511 Reported and signed by: Soto Garcia MD Electronically Signed: Soto Garcia MD at 5:10 EDT Tel , Service support ,
--- NOTE | 2021-01-17 14:04 | NURSING ---
PT TO OR VIA BED
[2021-01-17] MEDS: Cefazolin 2 GM in 0.9% Normal Saline 100 ML IV (15:17)
[2021-01-17] MEDS: Lactated Ringers 1,000 ML 999 ML IV (15:45)
--- NOTE | 2021-01-17 16:30 | RAD_ITS ---
STUDY: X-RAY - PELVIS AND LEFT HIP REASON FOR EXAM: Male, 70 years old. Hip replacement. TECHNIQUE: 4 intraoperative views of the pelvis and hip. COMPARISON: None. FINDINGS: The 4 provided images demonstrate a right total hip arthroplasty. The prosthetic components are intact and articulate normally with each other. There is no fracture or loosening from the underlying bone. Please refer to the operative report for further details. RAD/Hip 1 view with Pelvis IMPRESSION: Right hip arthroplasty in the OR. Electronically Signed: Simone Cortez DO at 19:00 EDT Tel [phone], Service support ,
--- NOTE | 2021-01-17 16:41 | PCM.OPRPT ---
Report of Operation Date of Procedure: 01/17/21 Pre-Operative Diagnosis: Left transcervical femoral neck fracture, displaced Left hip primary osteoarthritis Post-Operative Diagnosis: Left transcervical femoral neck fracture, displaced Left hip primary osteoarthritis Surgery/Procedure Performed:: Left minimally invasive direct anterior hip replacement Description of Surgical Findings:: Stable hip with equal leg lengths Surgeon: Pankaj Nelson supervisor blast furnace auxiliaries: Samson Rodriguez Type of Anesthesia: Spinal Anesthesiologist: Kaden Garcia Special Medications: 2 g Ancef, TXA lavage, joint cocktail (5 mg Duramorph, 30 mL of 0.5% Ropivicaine, 1000 units of epinephrine, 30 mg of Toradol) Specimen's removed: Bony cuts, femoral head Estimated Blood Loss (mL): 200 Fluids Replaced: 1000 mL Description of Procedure: Components used: 1. Accolade 2 Juan Antonio femoral stem size 6 127? 2. Juan Antonio trident 2 acetabular shell size 58 mm 3. Juan Antonio X3 polyethylene F 4. Juan Antonio Biolox delta 36mm, 5mm femoral head Brief history operative indications: 70 yo M who sustained a transcervical femoral neck fracture last evening. He also had evidence of mild arthrosis. X-rays were consistent with mild osteoarthritis including joint space narrowing and a displaced transcervical femoral neck fracture. I did meet the patient preoperatively and discussed with him options for transcervical femoral neck fracture which include nonoperative treatment, a closed duction percutaneous pinning, hemiarthroplasty and total hip replacement. Based on the patient's activity level, mild arthrosis and overall health and life expectancy I did recommend a total hip replacement. We did discuss the total replacement has a higher dislocation rate and hemiarthroplasty. Total hip replacement was discussed with the patient with risks and benefits including but not limited to blood loss, DVTs, PEs, neurovascular damage, dislocation, general risks of anesthesia including loss of life. Patient demonstrated an understanding medical clearance is obtained the patient was consented for surgery. Procedure: On the date of procedure the patient's L hip was marked in the preoperative area. Patient was then taken back to the operating room where anesthesia assumed control of the C-spine and airway and administered anesthetic. Patient was transferred to the operating table and placed in the supine position. The hips were placed at the break of the bed and a sacral bump was placed. L The lower extremity was then prepped out in a sterile fashion using chlorhexidine while the surgeon scrubbed. The PA was vital in the positioning of the patient. Upon reentering the room the left lower extremity was draped in the standard orthopedic fashion and the incision was marked. A timeout was called and everyone agreed upon the side, the site, the procedure be performed, antibody given, and patient's identity. At this time incision was made through skin, subcutaneous tissue, and fat down to fascia. The fascia was then incised and the TFL was retracted laterally. A retractor was placed on the lateral border of the femoral neck. Attention was directed to the inferior portion of the approach and all crossing vessels were identified and appropriately coagulated. A retractor was then placed on the medial portion of the femoral neck. The anterior capsule was then cleared of all soft tissue and then H shaped capsulotomy was made. The retractors were then placed inside the capsule. The femoral neck was identified and a cleanup cut was made. At this time a power corkscrew was used to remove the femoral head. Attention was then turned toward the acetabulum where the soft tissues were appropriately retracted and the acetabulum was sequentially reamed to 58 mm. A 58 mm cup was then selected and impacted into place. Acetabular liner was impacted into place and locking mechanism was verified. The position of the acetabular cup was then verified under live fluoroscopy. Attention was then turned to the femur. Soft tissue releases on the medial and lateral femoral neck were appropriately done, the leg was externally rotated and lateralized. A Bhandari retractor was placed medially and proximally to the greater trochanter this allowed appropriate visualization and exposure of the femoral canal. Rongeour was then used to remove excess lateral bone. A canal finder and entry broach were used to open the proximal canal. Once we verified we were down the femoral canal we subsequently broached up to a size 6 femur. The appropriate neck was placed in the previously selected head was trialed with a 5 mm neck. Traction was pulled and the hip was reduced with internal rotation. Once it was appropriately reduced and stability was checked. There was minimal shuck, equal leg lengths and appropriate stability with hyperextension and external rotation as well as with 90? flexion and internal rotation. Fluoroscopy was then also used to verify the position of the components and leg lengths using the contralateral side for comparison. The trial components were then dislocated the proximal femur was again exposed and the components were removed from the wound. The final components were verified and opened. The wound was copiously irrigated out with normal saline. The acetabulum was checked for any residual debris. The final components were placed and impacted. Traction and internal rotation were again used to reduce the hip. After adequate reduction the hip remained stable with appropriate leg lengths. The final components were once again checked with live fluoroscopy and were found to be satisfactory. The wound was then copiously irrigated with normal saline once more, and hemostasis was obtained. Closure was then done using #1 Vicryl runner to close the fascia. A 2-0 vicryl interuppted sutures were used to close the subcutaneous skin. A 3-0 Monocryl and Steri-Strips were used for final skin closure. A Silverlon dressing was placed. Patient was awakened by anesthesia and transferred to the [facility]. Patient was then transferred to the PACU for recovery. Postoperative plan: Patient will get 24 hours postop antibiotics. Patient will get in-house physical therapy and will be weight-bear as tolerated. Patient will follow up in office in 2 weeks for a wound check and x-rays. Recommend discharge home on aspirin 81 mg twice daily for DVT prophylaxis. During the course of the procedure the physician bleacher lard (PE) played a vital role. Their intimate knowledge of my steps in the procedure aided in safe and expedient completion of the procedure. The PE played a vital rolls in positioning particularly in obtaining the appropriate positioning of the sacral bump. The PE was also vital in the retraction of soft tissues during the exposure and especially the femoral work as this is a vital part of the procedure to prevent complications and fractures. The PE was also vital and protecting soft tissues during times of bony cuts and reaming. He also played a vital role in closure with my direct supervision. The PE was also important during reduction and dislocation of the joint and trials intraoperatively. Complications No intraoperative complications Admit VTE Documentation VTE Present on Admission: No VTE Mechan Device Prophylaxis: SCD's and Thigh High [place] Hose VTE Pharm Prophylaxis ordered?: Yes
[2021-01-17] MEDS: Lactated Ringers 1,000 ML 125 ML IV (17:27)
--- NOTE | 2021-01-17 17:27 | RAD_ITS ---
STUDY: X-RAY - PELVIS AND LEFT HIP REASON FOR EXAM: Male, 70 years old. Postop. TECHNIQUE: 2 views of the pelvis and hip. COMPARISON: 01/17/2021. FINDINGS: There is a non-specific bowel gas pattern. Normal visualized soft tissue structures. Normal bilateral iliac wings, sacroiliac joints and visualized sacrum. Normal bilateral superior and inferior pubic rami. Normal pubic symphysis. Normal bilateral ischial tuberosities. Normal right hip. There is a left total hip arthroplasty. The prosthetic components are intact and articulate normally with each other. No fracture or loosening. Bone. RAD/Hip Min 2 Views (Portable) IMPRESSION: Status post left total hip arthroplasty. Electronically Signed: Simone Cortez DO at 18:06 EDT Tel [phone], Service support ,
[2021-01-17] MEDS: Acetaminophen 500 MG Tablet 1000 MG PO (21:11)
[2021-01-17] MEDS: Senna/Docusate Sodium 1 Tablet 2 TABLET PO (21:11)
[2021-01-17] MEDS: Hydroxychloroquine 200 MG Tablet PO (21:11)
[2021-01-17] MEDS: Cefazolin 1 GM/50 ML BAG IV (23:13)
[2021-01-18] MEDS: Lactated Ringers 1,000 ML 125 ML IV (01:55)
[2021-01-18 03:50] VITALS: BP 149/81; PULSE 62; RESP 16; TEMP 37.1; O2SAT 95
[2021-01-18] MEDS: Cefazolin 1 GM/50 ML BAG IV (05:40)
[2021-01-18] MEDS: Acetaminophen 500 MG Tablet 1000 MG PO ×2 (05:40→13:52)
[2021-01-18 06:05] LABS: Absolute Lymphocyte Count 0.77 X10^3/uL (0.83-4.51); Absolute Neutrophil Count 7.9 X10^3/uL (2.0-7.7); Basophil# 0.06 X10^3/uL; Basophil% 0.6 % (0-1); Eosinophil# 0.33 X10^3/uL; Eosinophils% 3.3 % (0-5); Hematocrit 41.9 % (40-54); Hemoglobin 13.5 g/dL (13.0-16.5); Lymphocyte # 0.77 X10^3/ul (0.83-4.51); Lymphocyte % 7.7 % (19-41); Mean Corp Hgb Conc 32.2 g/dL (32-36); Mean Corpuscular Volume 86.7 fL (80-94); Mean Platelet Vol. 10.3 fl (6.2-12.0); NRBC Flagged by Analyzer 0 % (0-5); Neutrophil # 7.88 X10^3/uL (2.7-7.7); Neutrophil % 79.1 % (47-70); Platelet Count 200 K/mm3 (150-450); RBC Distribution Width CV 12.4 % (11.6-14.6); RBC Distribution Width SD 39.2 fl (35.1-43.9); Red Blood Count 4.83 M/mm3 (4.6-6.2)
[2021-01-18 06:26] LABS: Anion Gap 1 (5-15); BUN 16 mg/dL (7-18); BUN/Creat Ratio 16.3 RATIO (10-20); Calcium,Total 8.8 mg/dL (8.5-10.1); Chloride 109 mmol/L (98-107); Creatinine, Serum 0.98 mg/dL (0.70-1.30); EST Glomerular Filtration Rate 80 mL/min (>60); Est Glom Filt Rate - Afr Amer 97 mL/min (>60); Estimated Creatinine Clearance 81.55 ml/min; Glucose 110 mg/dL (74-106); Potassium 4.3 mmol/L (3.5-5.1); Sodium Level 139 mmol/L (136-145)
[2021-01-18] MEDS: oxyCODONE 5 MG Tablet PO ×2 (06:50→11:11)
[2021-01-18 07:35] VITALS: O2SAT 93
--- NOTE | 2021-01-18 07:38 | PN.HOSP_ITS ---
Subjective Subjective Patient seen and examined. He had left total hip replacement yesterday. Today is POD 1. Pain is well controlled. REview of systems is otherwise negative. He has remained hemodynamically stable. Objective Data Objective Data Vital Signs: Vital Signs Temp Pulse Resp BP Pulse Ox 98.8 F 62 16 149/81 H 95 01/18/21 03:50 01/18/21 03:50 01/18/21 03:50 01/18/21 03:50 01/18/21 03:50 Oxygen Flow Rate (L/min) 2 Oxygen Delivery Method Nasal Cannula Weight: 223 lb 5.252 oz Body Mass Index (BMI) 28.6 Intake & Output: Intake and Output for Last 24 Hours 01/16/21 01/17/21 01/18/21 23:59 23:59 23:59 Intake Total 3612.92 / 3612.92 819.41 / 819.41 Output Total 750 / 750 Balance 3612.92 / 3362.92 69.41 / 69.41 Lab / Micro Data Result Diagrams: 01/18/21 05:25 01/18/21 05:25 Labs: Laboratory Results - last 24 hr 01/17/21 01/17/21 01/18/21 04:30 06:40 05:25 WBC 10.0 RBC 4.83 Hgb 13.5 Hct 41.9 MCV 86.7 MCH 28.0 MCHC 32.2 RDW Std Deviation 39.2 RDW Coeff of Ariel 12.4 Plt Count 200 MPV 10.3 Immature Gran % (Auto) 0.300 Neut % (Auto) 79.1 H Lymph % (Auto) 7.7 L [place] % (Auto) 9.0 Eos % (Auto) 3.3 Baso % (Auto) 0.6 Absolute Neuts (auto) 7.9 H Absolute Lymphs (auto) 0.77 L Nucleated RBC % 0 Sodium 140 Potassium 4.7 Chloride 110 H Carbon Dioxide 25.0 Anion Gap 5 BUN 19 H Creatinine 1.06 Estim Creat Clear Calc 75.39 Est GFR (MDRD) Af Amer 89 Est GFR (MDRD) Non-Af 73 BUN/Creatinine Ratio 17.9 Glucose 123 H Calcium 8.8 Blood Type O POSITIVE Antibody Screen NEGATIVE 01/18/21 05:25 WBC RBC Hgb Hct MCV MCH MCHC RDW Std Deviation RDW Coeff of Ariel Plt Count MPV Immature Gran % (Auto) Neut % (Auto) Lymph % (Auto) [place] % (Auto) Eos % (Auto) Baso % (Auto) Absolute Neuts (auto) Absolute Lymphs (auto) Nucleated RBC % Sodium 139 Potassium 4.3 Chloride 109 H Carbon Dioxide 29.0 Anion Gap 1 L BUN 16 Creatinine 0.98 Estim Creat Clear Calc 81.55 Est GFR (MDRD) Af Amer 97 Est GFR (MDRD) Non-Af 80 BUN/Creatinine Ratio 16.3 Glucose 110 H Calcium 8.8 Blood Type Antibody Screen Radiography Diagnostic Testing: Radiology Impression Hip/Pelvis X-Ray 01/17/21 16:30 IMPRESSION: Right hip arthroplasty in the OR. Electronically Signed: Simone Cortez DO at 19:00 EDT Tel [phone], Service support , Hip X-Ray 01/17/21 17:27 IMPRESSION: Status post left total hip arthroplasty. Electronically Signed: Simone Cortez DO at 18:06 EDT Tel [phone], Service support , Physical Exam Const alert, oriented x3 and no apparent distress Exam Limitations: no limitations HEENT normocephalic, head/scalp atraumatic and moist oral mucous membranes Head and Scalp: normocephalic Eyes PERRL and EOMs intact bilaterally Neck no lymphadenopathy and supple Lymph Lymphatic: no lymphadenopathy noted Resp normal respiratory effort, no retractions, no use of accessory muscles and clear to auscultation bilaterally Cardio regular rate, regular rhythm, S1 normal heart sound, S2 normal heart sound and no murmurs GI normal to inspection, nondistended, normoactive bowel sounds Extremity Extremity Narrative: dressing over surgical site Skin no rashes or lesions noted Rashes: no rashes Neuro oriented x3 and CN's II-XII intact bilaterally Sensorium / Orientation: awake and alert Psych affect normal Appearance: appropriate Assessment & Plan Assessment/Plan (1) Essential hypertension: (2) Hyperlipidemia: QUALIFIERS: Hyperlipidemia type: unspecified Qualified Code(s): E78.5 - Hyperlipidemia, unspecified (3) Closed left hip fracture: QUALIFIERS: Encounter type: initial encounter Qualified Code(s): S72.002A - Fracture of unspecified part of neck of left femur, initial encounter for closed fracture PLAN: #Left hip fracture due to mechanical fall * s/p left hip arthroplasty. Today is POD 1. * PT.OT on board. Fall precautions * Pain fairly well controlled. On IV Dilaudid for pain * #History of hyperlipidemia: On statin #Hypertension: On amlodipine and aspirin #Depression : On venlafaxine #DVT prophylaxis: aspirin 81mg bid per ortho prefernce. Charges/Coding Visit Charges Inpatient E&M: 87809 Subs Hosp L2
[2021-01-18 08:19] VITALS: BP 140/70; PULSE 68; RESP 16; TEMP 36.9; O2SAT 98
[2021-01-18] MEDS: Aspirin 81 MG TAB.CHEW PO (09:12)
[2021-01-18] MEDS: Famotidine 20 MG Tablet PO (09:12)
[2021-01-18] MEDS: Hydroxychloroquine 200 MG Tablet PO (09:12)
[2021-01-18] MEDS: Ensure Surgery 237 ML LIQUID PO ×2 (09:13→11:09)
[2021-01-18] MEDS: Senna/Docusate Sodium 1 Tablet 2 TABLET PO (09:13)
--- NOTE | 2021-01-18 10:43 | PCM.PN.ORT ---
Objective Data Objective Data Patient is sitting up in bed, he is status postop day 1 from a left total hip arthroplasty, status post hip fracture. Patient states pain is doing very well. He denies any chest pain, shortness of breath, calf pain, nausea vomiting. Patient states he is ready for discharge home. Vital Signs: Vital Signs Temp Pulse Resp BP Pulse Ox 98.5 F 68 16 140/70 H 98 01/18/21 08:19 01/18/21 08:19 01/18/21 08:19 01/18/21 08:19 01/18/21 08:19 Oxygen Flow Rate (L/min) 2 Oxygen Delivery Method Room Air Weight: 101.3 kg Body Mass Index (BMI) 28.6 Intake & Output: Intake and Output for Last 24 Hours 01/16/21 01/17/21 01/18/21 23:59 23:59 23:59 Intake Total 3612.92 / 3612.92 819.41 / 819.41 Output Total 750 / 750 Balance 3612.92 / 3362.92 69.41 / 69.41 Lab / Micro Data Result Diagrams: 01/18/21 05:25 01/18/21 05:25 Labs: Laboratory Results - last 24 hr 01/18/21 01/18/21 05:25 05:25 WBC 10.0 RBC 4.83 Hgb 13.5 Hct 41.9 MCV 86.7 MCH 28.0 MCHC 32.2 RDW Std Deviation 39.2 RDW Coeff of Ariel 12.4 Plt Count 200 MPV 10.3 Immature Gran % (Auto) 0.300 Neut % (Auto) 79.1 H Lymph % (Auto) 7.7 L [place] % (Auto) 9.0 Eos % (Auto) 3.3 Baso % (Auto) 0.6 Absolute Neuts (auto) 7.9 H Absolute Lymphs (auto) 0.77 L Nucleated RBC % 0 Sodium 139 Potassium 4.3 Chloride 109 H Carbon Dioxide 29.0 Anion Gap 1 L BUN 16 Creatinine 0.98 Estim Creat Clear Calc 81.55 Est GFR (MDRD) Af Amer 97 Est GFR (MDRD) Non-Af 80 BUN/Creatinine Ratio 16.3 Glucose 110 H Calcium 8.8 Radiography Diagnostic Testing: Radiology Impression Hip/Pelvis X-Ray 01/17/21 16:30 IMPRESSION: Right hip arthroplasty in the OR. Electronically Signed: Simone Cortez DO at 19:00 EDT Tel [phone], Service support , Hip X-Ray 01/17/21 17:27 IMPRESSION: Status post left total hip arthroplasty. Electronically Signed: Simone Cortez DO at 18:06 EDT Tel [phone], Service support , Physical Exam Narrative Patient lying in bed comfortably. Patient no respiratory distress, speaking in full sentences. Patient moving upper extremities without limitations. Exam of the left hip, is cool to touch nonerythematous. The dressing is clean dry intact. The thigh is nontender and soft. Patient has good flexion-extension of the left knee ankle and foot. No calf tenderness. Strong posterior tibial and dorsalis pedis pulses. Vital signs labs reviewed noted in the medical record. Patient is afebrile. Const oriented x3 Eyes PERRL Neuro CN's II-XII intact bilaterally Assessment & Plan Assessment/Plan (1) Closed left hip fracture: QUALIFIERS: Encounter type: initial encounter Qualified Code(s): S72.002A - Fracture of unspecified part of neck of left femur, initial encounter for closed fracture PLAN: 1. Continue pain medications as prescribed 2. Continue physical therapy, weight-bear as tolerated with walker 3. Aspirin 81 mg 1 p.o. every 12 hours x30 days for postop DVT prophylaxis 4. Encourage incentive spirometry 5. Discharge home today when clear with medicine 6. Continue outpatient physical therapy 7. Shower 01/19/2021 8. Follow-up with Dr. Nelson in 2 weeks for postop follow-up and staple removal (2) Status post total hip replacement, left:
[2021-01-18 11:39] VITALS: BP 148/78; PULSE 76; RESP 16; TEMP 36.9; O2SAT 95
--- NOTE | 2021-01-18 12:12 | CHAPLAIN ---
Type of Pastoral Visit _x__ Initial Visit ___ Follow-up Visit ___ On-call Visit ___ General Patient Visit ___ Spiritual Assessment ___ Family Conference ___ Bereavement ___ Rapid Response ___ Code Blue ___ Other (describe below) Pastoral Care Referral From _x__ Patient ___ Family ___ Nurse ___ Physician ___ Care Partner ___ Smoking Tobacco Cutter Operator ___ Other (describe below) Sacrament/Intervention _x__ Active listening ___ Anointing ___ Tenriism ___ Bereavement ___ Communion ___ Sarah exploration ___ ___ Life review ___ Prayer ___ Reconciliation ___ Sacrament of Sick ___ Supportive presence ___ Wedding ___ Other (describe below) Pastoral Comments
--- NOTE | 2021-01-18 12:21 | CASEMGMT ---
KALEY MCINTYRE received communication from therapy that pt is approp for outpt therapy. Script received and signed. KALEY MCINTYRE in to pt room. Pt sitting up in chair. Provided pt with script. He states he is able to call and set up an appt. He is aware that if he gets home and does not feel he can do outpt therapy to notify his doctor for possible HHC. Pt verbalized understanding. He plans on going to [facility] for therapy. Pt denies further concerns at this time.
[2021-01-18 15:25] VITALS: BP 157/89; PULSE 95; RESP 16; TEMP 36.8; O2SAT 93
--- NOTE | 2021-01-18 15:31 | PCM.DC.SUM ---
Providers Date of Admission: 01/17/21 Primary Care Physician: Dr. Miki Collazo MD Consultations 01/17/21 05:47 Consult: Orthopedics Routine Consulting Provider: Pankaj Nelson Reason for Consult: left hip fracture EMERGENT Consult: Yes MD Notified: Yes Date Notified: 01/17/21 Time Notified: 05:32 Method of Notification: Verbal Reason For Visit: LEFT HIP FRACTURE Diagnosis Discharge Diagnosis (1) Closed left hip fracture: Status: Acute Code(s): S72.002A - Fracture of unspecified part of neck of left femur, initial encounter for closed fracture Qualifiers: Encounter type: initial encounter Qualified Code(s): S72.002A - Fracture of unspecified part of neck of left femur, initial encounter for closed fracture (2) Status post total hip replacement, left: Status: Acute Code(s): Z96.642 - Presence of left artificial hip joint Medications at Discharge Home Medications amlodipine 10 mg tablet 10 mg PO QDAY 09/02/17 venlafaxine 75 mg tablet 75 mg PO QDAY tab 09/02/17 prednisolone acetate (PF) 1 drp OP DAILY 09/08/19 finasteride 5 mg PO DAILY 09/25/19 cholecalciferol (vitamin D3) 125 mcg PO QWEEK 01/17/21 hydroxychloroquine 200 mg PO BID 01/17/21 tamsulosin [Flomax] 0.4 mg PO DAILY 01/17/21 aspirin 81 mg PO BIDCM #60 tab 01/18/21 oxycodone 10 mg PO Q6H PRN 5 Days #20 tab 01/18/21 Hospital Course Operations - (left anterior hip replacement) Procedures None Summary of Care Provided Minutes Spent on Discharge: 40 Hospital Course: Patient is a 70-year-old male with a past medical history as outlined was admitted through the ED on 01/17/2021 with a complaint of left hip pain after he fell. He was reaching for a light switch and fell down 3 stairs and had a loud pop in his left hip. He was unable to bear weight afterwards and came into the ED where imaging done showed left neck impacted transcervical fracture. He was admitted and orthopedic surgery was consulted. He had left anterior hip replacement on 01/17/2021. Postop course was not complicated and pain was tolerated. Patient was able to ambulate with physical therapy and was deemed stable for discharge. He was discharged on 01/18/2021 and is to follow-up with his primary care doctor and orthopedic surgeon in 1 to 2 weeks. Patient was seen and examined prior to discharge. Pain is well controlled and review of symptoms otherwise negative. Labs and vitals reviewed. Home medication reviewed and reconciled. Physical Exam Const alert, oriented x3 and no apparent distress General Appearance: cooperative and comfortable Exam Limitations: no limitations HEENT normocephalic, head/scalp atraumatic and moist oral mucous membranes Eyes PERRL and EOMs intact bilaterally Neck no lymphadenopathy and supple Lymph Lymphatic: no lymphadenopathy noted Resp normal respiratory effort, no retractions, no use of accessory muscles and clear to auscultation bilaterally Cardio regular rate, regular rhythm, S1 normal heart sound, S2 normal heart sound and no murmurs GI normal to inspection, nondistended, normoactive bowel sounds Extremity Extremity Narrative: dressing over surgical site Skin no rashes or lesions noted Rashes: no rashes Neuro oriented x3 and CN's II-XII intact bilaterally Sensorium / Orientation: awake and alert Psych affect normal Appearance: appropriate Weight / BMI Weight Weight: 223 lb 5.252 oz Body Mass Index (BMI) 28.6 ABG / Lab / Microbiology Data Result Diagrams: 01/18/21 05:25 01/18/21 05:25 Laboratory: Laboratory Results - last 24 hr 01/18/21 01/18/21 05:25 05:25 WBC 10.0 RBC 4.83 Hgb 13.5 Hct 41.9 MCV 86.7 MCH 28.0 MCHC 32.2 RDW Std Deviation 39.2 RDW Coeff of Ariel 12.4 Plt Count 200 MPV 10.3 Immature Gran % (Auto) 0.300 Neut % (Auto) 79.1 H Lymph % (Auto) 7.7 L [place] % (Auto) 9.0 Eos % (Auto) 3.3 Baso % (Auto) 0.6 Absolute Neuts (auto) 7.9 H Absolute Lymphs (auto) 0.77 L Nucleated RBC % 0 Sodium 139 Potassium 4.3 Chloride 109 H Carbon Dioxide 29.0 Anion Gap 1 L BUN 16 Creatinine 0.98 Estim Creat Clear Calc 81.55 Est GFR (MDRD) Af Amer 97 Est GFR (MDRD) Non-Af 80 BUN/Creatinine Ratio 16.3 Glucose 110 H Calcium 8.8 Radiography Diagnostic Testing: Radiology Impression Hip/Pelvis X-Ray 01/17/21 16:30 IMPRESSION: Right hip arthroplasty in the OR. Electronically Signed: Simone Cortez DO at 19:00 EDT Tel [phone], Service support , Hip X-Ray 01/17/21 17:27 IMPRESSION: Status post left total hip arthroplasty. Electronically Signed: Simone Cortez DO at 18:06 EDT Tel [phone], Service support , D/C Instructions Discharge Diet: 2000 mg Sodium Diet Discharge Activity: Return to Normal Activity Weight Bearing Status: Weight bearing as tolerated Call your doctor if your incision/area has: Continuous Slow Oozing, Sudden Increased Bleeding, Increased Pain/ Swelling, Increased Redness, Foul Smelling Discharge and Swelling at the incision site Call your doctor if you observe: Fever of 101 or Higher and Uncontrolled pain Meaningful Use Info Meaningful Use Diagnoses (Choose all that apply): None applicable Discharge Plan Admission Admit Date/Time: 01/17/21 05:32 Primary Reason for Your Visit: left hip fracture due to mechanical fall Attending Provider: Teresa Salvador Primary Care Provider: Miki Collazo Chi Consulting Providers: aPnkaj Nelson Instructions Patient Instructions: Fx Hip Common Questions, Fx Femur ORIF About, ED Chest Pain, Noncardiac Discharge Orders/Prescriptions Prescriptions: New aspirin 81 mg Tablet,Chewable 81 mg PO BIDCM Qty: 60 RF: 0 oxycodone 10 mg tablet 10 mg PO Q6H PRN (Reason: pain) 5 Days Qty: 20 RF: 0 Continued venlafaxine 75 mg tablet 75 mg PO QDAY RF: 0 amlodipine 10 mg tablet 10 mg PO QDAY RF: 0 prednisolone acetate (PF) 5 ML drops,suspension 1 drp OP DAILY RF: 0 finasteride 5 MG tablet 5 mg PO DAILY RF: 0 tamsulosin [Flomax] 0.4 mg Capsule 0.4 mg PO DAILY RF: 0 hydroxychloroquine 200 mg Tablet 200 mg PO BID RF: 0 cholecalciferol (vitamin D3) 125 mcg (5,000 unit) Tablet 125 mcg PO QWEEK RF: 0 Discontinued aspirin 81 mg Tablet,Chewable 81 mg PO DAILY RF: 0 Keflex 500 mg RF: 0 doxycycline hyclate 100 mg RF: 0 Referrals / Follow Up: Miki Collazo Chi, MD [Primary Care Provider] - Disposition Disposition (needs filled in before D/C Order can be placed): Home, Self Care Charges/Coding Visit Charges Inpatient E&M: 72112 Disch Hosp
== END 2021-01-18 16:13 | disposition home or self-care (01) | DRG 522 ==
LOC: ED 05:04 → MS3 05:53
PROVIDERS: Specialist; Admitting Provider Family Medicine; Emergency Provider Emergency Medicine; PCP Family Medicine Geriatric Medicine; Visit Provider Student in an Organized Health Care Education/Training Program
PROC: 0SRB02Z Replacement of Left Hip Joint with Metal on Polyethylene Synthetic Substitute, Open Approach (ICD-10-PCS; CPT 27125; principal; 2021-01-17 16:05)
DX: S72.032A Displaced midcervical fracture of left femur, initial encounter for closed fracture (principal); Q21.1 Atrial septal defect; W10.9XXA Fall (on) (from) unspecified stairs and steps, initial encounter; Y93.9 Activity, unspecified; Y92.9 Unspecified place or not applicable; E03.9 Hypothyroidism, unspecified; E78.5 Hyperlipidemia, unspecified; F32.9 Major depressive disorder, single episode, unspecified; I10 Essential (primary) hypertension; J45.909 Unspecified asthma, uncomplicated; M16.12 Unilateral primary osteoarthritis, left hip; I73.9 Peripheral vascular disease, unspecified; N40.0 Benign prostatic hyperplasia without lower urinary tract symptoms; Z79.82 Long term (current) use of aspirin; Z87.19 Personal history of other diseases of the digestive system; Z79.899 Other long term (current) drug therapy
CPT/HCPCS: 36415; 71045; 73501; 73502; 76000; 80048; 85025; 86850; 86900; 86901; 88305; 88311; 93005; 97110; 97116; 97162; 97166; 97530; 97535; 99251; 99285; C1776; J7030; J7040; J7120; A4216; G0463; J2405

== ENCOUNTER → 2021-05-12 12:12 | Outpatient (CLI) | payer MEDICARE, OTHER, SELFPAY ==
--- NOTE | 2021-05-12 12:37 | RAD_ITS ---
HISTORY: KNEE PAIN EXAMINATION/TECHNIQUE: XR Knee Complete 4 Views or More: Including weight-bearing views COMPARISON: 08/21/18 FINDINGS: BONES/JOINTS: No acute fracture or dislocation. Progressive loss of the medial joint space with near bone on bone contact. No sclerotic or destructive changes observed. SOFT TISSUES: No soft tissue swelling or gas. No radiopaque foreign body. RAD/Knee 4 or More Views IMPRESSION: Progression of tricompartmental degenerative changes with severe medial joint space loss. at 2102 Reported and signed by: Lele Hopkins MD Electronically Signed: Lele Hopkins MD at 21:01 EDT Tel , Service support ,
--- NOTE | 2021-05-12 12:37 | RAD_ITS ---
HISTORY: KNEE PAIIN EXAMINATION/TECHNIQUE: XR Knee Complete 4 Views or More: Including weight-bearing views COMPARISON: 08/09/20 FINDINGS: BONES/JOINTS: No acute fracture or dislocation. Progressive joint loss of the medial compartment with near bone on bone contact. No sclerotic or destructive changes observed. SOFT TISSUES: No soft tissue swelling or gas. No radiopaque foreign body. RAD/Knee 4 or More Views IMPRESSION: Progression of tricompartmental degenerative changes. at 2104 Reported and signed by: Lele Hopkins MD Electronically Signed: Lele Hopkins MD at 21:03 EDT Tel , Service support ,
== END ==
PROVIDERS: PCP Family Medicine Geriatric Medicine; Referring Provider Family Medicine Geriatric Medicine; Visit Provider Family Medicine Geriatric Medicine
DX: M17.0 Bilateral primary osteoarthritis of knee (principal)
CPT/HCPCS: 73564

== ENCOUNTER → 2021-05-26 10:19 | Outpatient (CLI) | payer MEDICARE, OTHER, SELFPAY ==
[2021-05-26 10:56] LABS: Absolute Lymphocyte Count 1.32 X10^3/uL (0.83-4.51); Absolute Neutrophil Count 6.2 X10^3/uL (2.0-7.7); Basophil# 0.05 X10^3/uL; Basophil% 0.6 % (0-1); Eosinophil# 0.13 X10^3/uL; Eosinophils% 1.6 % (0-5); Hematocrit 45.5 % (40-54); Hemoglobin 14.9 g/dL (13.0-16.5); Lymphocyte # 1.32 X10^3/ul (0.83-4.51); Lymphocyte % 15.8 % (19-41); Mean Corp Hgb Conc 32.7 g/dL (32-36); Mean Corpuscular Hgb 28.2 pg (27.0-32.0); Mean Corpuscular Volume 86.2 fL (80-94); Mean Platelet Vol. 9.9 fl (6.2-12.0); Monocyte# 0.65 X10^3/uL; Monocyte% 7.8 % (0-10); NRBC Flagged by Analyzer 0 % (0-5); Neutrophil # 6.18 X10^3/uL (2.7-7.7); Platelet Count 256 K/mm3 (150-450); RBC Distribution Width SD 40.4 fl (35.1-43.9); Red Blood Count 5.28 M/mm3 (4.6-6.2); White Blood Count 8.4 K/mm3 (4.4-11.0)
[2021-05-26 11:29] LABS: Vitamin D,25 Hydroxy 22.6 ng/mL
[2021-05-26 11:37] LABS: ALB/GLOB Ratio 1.1 RATIO (0.9-2.4); AST(SGOT) 30 U/L (15-37); Alanine Aminotransfer ALT/SGPT 38 U/L (16-61); Albumin, Serum 3.6 g/dL (3.2-5.0); Alkaline Phosphatase 105 U/L (45-117); Anion Gap 5 (5-15); BUN 27 mg/dL (7-18); BUN/Creat Ratio 25.5 RATIO (10-20); Calcium,Total 9.4 mg/dL (8.5-10.1); Chloride 109 mmol/L (98-107); Creatinine, Serum 1.06 mg/dL (0.70-1.30); EST Glomerular Filtration Rate 73 mL/min (>60); Est Glom Filt Rate - Afr Amer 89 mL/min (>60); Globulin 3.2 g/dL (2.2-4.2); Glucose 91 mg/dL (74-106); PSA,Total - Annual Screen 0.77 ng/mL (0.00-4.00); Protein, Total 6.8 g/dL (6.4-8.2); Sodium Level 140 mmol/L (136-145); Thyroid Stim Hormone (TSH) 3.27 uIU/mL (0.358-3.74)
== END ==
PROVIDERS: PCP Family Medicine Geriatric Medicine; Visit Provider Family Medicine Geriatric Medicine
DX: E23.6 Other disorders of pituitary gland (principal); E55.9 Vitamin D deficiency, unspecified; I10 Essential (primary) hypertension; Z12.5 Encounter for screening for malignant neoplasm of prostate
CPT/HCPCS: 36415; 80053; 82306; 84153; 84403; 84443; 85025; G0103

== ENCOUNTER → 2021-06-22 16:32 | Outpatient (CLI) | payer MEDICARE, OTHER, SELFPAY ==
--- NOTE | 2021-06-22 16:35 | RAD_ITS ---
STUDY: X-RAY - LUMBOSACRAL SPINE REASON FOR EXAM: Male, 70 years old. LUMBAR RADICULOPATHY TECHNIQUE: 6 view(s) of the lumbosacral spine were obtained. COMPARISON: September 08, 2019 CT Bone window FINDINGS: Normal lumbar lordosis. There is no substantial scoliosis. There is normal alignment of the vertebrae. There is chronic loss of height at the level of L1 stable since prior study. There is slight loss of height at L2. There is multilevel spondylosis. There is disc space narrowing L5-S1. There is facet arthropathy and narrowing of the L5-S1 neural foramen right greater than left. Normal disc space heights. There is degenerative arthrosis of the sacroiliac joint with articular joint space narrowing and spur formation. There is a partially visualized left hip arthroplasty. RAD/L/S Spine Comp/w Bending Views IMPRESSION: Multilevel Degenerative change. Chronic loss of 20% height at L1 unchanged since prior study September 08, 2019. No apparent instability on flexion-extension. Electronically Signed: Alessandra Llanos MD at 4:39 EST Tel , Service support ,
== END ==
PROVIDERS: PCP Family Medicine Geriatric Medicine; Referring Provider Family Medicine Geriatric Medicine; Visit Provider Family Medicine Geriatric Medicine
DX: M54.16 Radiculopathy, lumbar region (principal)
CPT/HCPCS: 72114

== ENCOUNTER → 2021-06-26 10:59 | Outpatient (CLI) | payer MEDICARE, OTHER, SELFPAY ==
[2021-06-26 12:27] LABS: Absolute Lymphocyte Count 1.15 X10^3/uL (0.83-4.51); Basophil# 0.04 X10^3/uL; Basophil% 0.5 % (0-1); Eosinophil# 0.02 X10^3/uL; Eosinophils% 0.3 % (0-5); Hematocrit 45.2 % (40-54); Hemoglobin 14.7 g/dL (13.0-16.5); Lymphocyte # 1.15 X10^3/ul (0.83-4.51); Lymphocyte % 14.8 % (19-41); Mean Corp Hgb Conc 32.5 g/dL (32-36); Mean Corpuscular Hgb 28.3 pg (27.0-32.0); Mean Corpuscular Volume 87.1 fL (80-94); Mean Platelet Vol. 10.3 fl (6.2-12.0); Monocyte% 6.5 % (0-10); NRBC Flagged by Analyzer 0 % (0-5); Neutrophil # 5.96 X10^3/uL (2.7-7.7); Neutrophil % 76.9 % (47-70); Platelet Count 271 K/mm3 (150-450); RBC Distribution Width CV 12.8 % (11.6-14.6); RBC Distribution Width SD 40.4 fl (35.1-43.9); Red Blood Count 5.19 M/mm3 (4.6-6.2); White Blood Count 7.8 K/mm3 (4.4-11.0)
[2021-06-26 12:47] LABS: ALB/GLOB Ratio 1.3 RATIO (0.9-2.4); AST(SGOT) 57 U/L (15-37); Alanine Aminotransfer ALT/SGPT 95 U/L (16-61); Albumin, Serum 3.8 g/dL (3.2-5.0); Alkaline Phosphatase 96 U/L (45-117); Anion Gap 4 (5-15); BUN 23 mg/dL (7-18); BUN/Creat Ratio 21.5 RATIO (10-20); Calcium,Total 9.7 mg/dL (8.5-10.1); Chloride 109 mmol/L (98-107); Creatinine, Serum 1.07 mg/dL (0.70-1.30); EST Glomerular Filtration Rate 72 mL/min (>60); Est Glom Filt Rate - Afr Amer 88 mL/min (>60); Globulin 2.9 g/dL (2.2-4.2); Glucose 102 mg/dL (74-106); Potassium 4.7 mmol/L (3.5-5.1); Protein, Total 6.7 g/dL (6.4-8.2); Sodium Level 141 mmol/L (136-145)
== END ==
PROVIDERS: PCP Family Medicine Geriatric Medicine; Referring Provider Internal Medicine Rheumatology; Visit Provider Internal Medicine Rheumatology
DX: M06.4 Inflammatory polyarthropathy (principal); Z79.899 Other long term (current) drug therapy; M21.6X1 Other acquired deformities of right foot; F41.9 Anxiety disorder, unspecified; F32.A Depression, unspecified; I10 Essential (primary) hypertension; N40.1 Benign prostatic hyperplasia with lower urinary tract symptoms; K76.0 Fatty (change of) liver, not elsewhere classified
CPT/HCPCS: 36415; 80053; 85025

== ENCOUNTER 2021-08-02 11:19 | Outpatient (CLI) | payer MEDICARE, OTHER, SELFPAY ==
--- NOTE | 2021-08-02 11:27 | BD_ITS ---
STUDY: DUAL ENERGY X-RAY ABSORPTIOMETRY / DXA REASON FOR EXAM: Male, 71 years old. [id number] TECHNIQUE: Bone Mineral Density (BMD) measurements of lumbar spine and right hip were obtained. COMPARISON: None. FINDINGS: Lumbar Spine (L1-L4): g/cm2 (1.065) / T-score (-0.2) / Z-score (0.7) Findings are suggestive of normal bone density with a low fracture risk. Right Femur Total: g/cm2 (0.989) / T-score (-0.3) / Z-score (0.4) Right Femoral Neck: g/cm2 (0.750) / T-score (-1.3) / Z-score (-0.1) BD/Dexa Bone Density Study IMPRESSION: The patient is considered osteopenic as outlined below according to World Pérez Organization (WHO) criteria with a low fracture risk. Reference Information: The T-score is the number of standard deviations above or below the standard which is normal for young adults at their peak bone mineral density. The World Health Organization (WHO) interprets the T-scores as follows: Above -1 Normal bone density Between -1 and -2.5 Osteopenia Equal to / or below -2.5 Osteoporosis As a practical clinical guideline, osteopenia may be graded as follows: Mild -1 through -1.5 Moderate -1.6 through -2.0 Severe -2.1 through -2.4 The Z-score is the number of standard deviations above or below age-matched controls. A Z-score of less than -1.5 would be considered abnormal. References: 1. NIH Osteoporosis and Related Bone Diseases www osteo.org 2. International Society for Clinical Densitometry www iscd.org 3. National Osteoporosis Foundation www nof.org Electronically Signed: Sam De Los Santos MD at 15:08 EST , Service support ,
== END 2021-08-02 23:59 | disposition short-term general hospital (02) ==
LOC: OPBD 11:22
PROVIDERS: PCP Family Medicine Geriatric Medicine; Referring Provider Family Medicine Geriatric Medicine; Visit Provider Family Medicine Geriatric Medicine
DX: M85.89 Other specified disorders of bone density and structure, multiple sites (principal)
CPT/HCPCS: 77080

== ENCOUNTER 2021-09-15 11:12 | Outpatient (CLI) | payer MEDICARE, OTHER, SELFPAY ==
--- NOTE | 2021-09-15 11:15 | US_ITS ---
STUDY: SUPERFICIAL ULTRASOUND - PALPABLE LEFT AXILLARY MASS. REASON FOR EXAM: Male, 71 years old. AXILLARY LYMPHADENOPATHY TECHNIQUE: A superficial ultrasound was performed with real-time and static hull-scale imaging. COMPARISON: None. FINDINGS: The palpable abnormality corresponds to a 3.3 cm x 3.5 cm x 0.8 cm isoechoic soft tissue density. Minimal vascularity is noted. Biopsy is recommended. US/Ext Non Vasc Limited/Soft Tiss IMPRESSION: 3.3 cm x 3.5 cm x 0.8 some isoechoic soft tissue density corresponding to the palpable abnormality. Biopsy recommended. Electronically Signed: Sam De Los Santos MD at 14:36 EST ,
== END 2021-09-15 23:59 | disposition home or self-care (01) ==
LOC: US 11:13
PROVIDERS: PCP Family Medicine Geriatric Medicine; Referring Provider Family Medicine Geriatric Medicine; Visit Provider Family Medicine Geriatric Medicine
DX: R59.0 Localized enlarged lymph nodes (principal)
CPT/HCPCS: 76882

== ENCOUNTER 2021-09-25 11:25 | Outpatient (CLI) | payer MEDICARE, OTHER, SELFPAY ==
--- NOTE | 2021-09-25 | MISC_PTH ---
PATIENT: JUVE ROLAND LOC: [facility]#:[id number] AGE/SX: 71/M ROOM: RE09/25/[address]: Dr. Miki Collazo MD : 1950 BED: DIS: 09/25/2021 SPEC #: [id number] RECD: 09/25/21 12:51 STATUS: LUIS DARÍO #: [id number] BELL: 09/25/21 00:[address]: Miki Collazo Chi DEPT: SURGICAL PATHOLOGY RECD BY: Brian Timmons Tissues: Axilla, NOS Procedures: Surgery Specimen Level IV HEADER OPERATION: Ultrasound-guided core biopsy, left arm soft tissue PRE-OP DIAGNOSIS: Left axilla mass TISSUE SUBMITTED: Core biopsy, left arm MICROSCOPIC DIAGNOSIS Left arm mass, ultrasound-guided core biopsy: Fragments of skeletal muscle tissue and fibrous tissue, negative for malignancy. See comment. ELSY:buster 09/26/2021 COMMENT Correlation with clinical, radiologic findings and appropriate follow up are necessary. Re-biopsy or excision of mass is suggested if clinically indicated for definite diagnosis. MICROSCOPIC DESCRIPTION Slides are reviewed. GROSS DESCRIPTION Received in fixative is one container labeled with the patient's name and designated left arm mass. The specimen consists of multiple irregular fragments of menendez soft tissue that in aggregate measure 1 x 0.2 x <0.1 cm. The specimen is totally submitted in one cassette. / SJ:buster 09/25/2021 TC:4 CPT: 49890
--- NOTE | 2021-09-25 11:45 | US_ITS ---
PROCEDURE: Ultrasound guided core biopsy of the left axillary mass. DATE OF EXAMINATION: 09/25/2021. INDICATION: Male, 71 years old. Palpable soft tissue mass in the left axillary region. PHYSICIAN: Dr. ZAFAR Bahena CONSENT: The risks, benefits and alternatives to the procedure were explained to the patient, and the patient agreed to the procedure and signed the consent. STERILE BARRIER TECHNIQUE: The following sterile barrier precautions were used during the procedure: hand hygiene; use of 2% chlorhexidine aseptic; use of a cap, mask, sterile gown, sterile gloves, sterile full body drape, and a large sterile sheet. PROCEDURE/TECHNIQUE: (All elements of maximal sterile barrier technique followed, including US elements as applicable) The risks, benefits, and alternatives to the procedure were explained to patient, and the patient agreed to the procedure and signed a consent form for the procedure. A timeout was performed to confirm the patient''s identity, the type of procedure, to be performed and the site of entry. Under direct sonographic guidance, 3, 18-gauge core biopsies of the palpable mass was performed. The specimen was sent to the laboratory for analysis. US/US Needle Biopsy/Soft Tissue IMPRESSION: Successful ultrasound-guided core biopsy of the palpable left axillary mass. Electronically Signed: Sam De Los Santos MD at 9:57 EST ,
[2021-09-25 12:10] VITALS: BP 116/74; PULSE 46; RESP 16; TEMP 36.9; O2SAT 98
[2021-09-25] MEDS: Lidocaine 2% (20 ml mdv) 20 ML Vial INFILT (12:17)
--- NOTE | 2021-09-25 14:16 | NURSING ---
1210 Procedure explained to pt. 1217 Dr. De Los Santos cleans skin of right inner upper arm for ultrasound-guided biopsy. Dr. De Los Santos takes multiple samples of tissue. Procedure complete at 1222. Bandaid applied by Dr. De Los Santos.
== END 2021-09-25 23:59 | disposition home or self-care (01) ==
LOC: US 11:27
PROVIDERS: PCP Family Medicine Geriatric Medicine; Referring Provider Family Medicine Geriatric Medicine; Visit Provider Family Medicine Geriatric Medicine
DX: R22.32 Localized swelling, mass and lump, left upper limb (principal)
CPT/HCPCS: 20206; 76942; 88305

== ENCOUNTER → 2021-11-24 | Outpatient (CLI) | payer MEDICARE, OTHER, SELFPAY ==
[2021-11-24 10:47] LABS: Absolute Lymphocyte Count 1.51 X10^3/uL (0.83-4.51); Absolute Neutrophil Count 2.8 X10^3/uL (2.0-7.7); Basophil# 0.05 X10^3/uL; Eosinophil# 0.15 X10^3/uL; Eosinophils% 2.9 % (0-5); Hematocrit 46.9 % (40-54); Lymphocyte # 1.51 X10^3/ul (0.83-4.51); Lymphocyte % 29.6 % (19-41); Mean Corp Hgb Conc 34.1 g/dL (32-36); Mean Corpuscular Hgb 28.6 pg (27.0-32.0); Mean Corpuscular Volume 83.9 fL (80-94); Mean Platelet Vol. 10.2 fl (6.2-12.0); Monocyte# 0.61 X10^3/uL; NRBC Flagged by Analyzer 0 % (0-5); Neutrophil # 2.75 X10^3/uL (2.7-7.7); Neutrophil % 53.9 % (47-70); Platelet Count 223 K/mm3 (150-450); RBC Distribution Width CV 12.2 % (11.6-14.6); RBC Distribution Width SD 36.6 fl (35.1-43.9); Red Blood Count 5.59 M/mm3 (4.6-6.2); White Blood Count 5.1 K/mm3 (4.4-11.0)
[2021-11-24 11:00] LABS: Vitamin D,25 Hydroxy 20.4 ng/mL
[2021-11-24 11:04] LABS: ALB/GLOB Ratio 1.4 RATIO (0.9-2.4); AST(SGOT) 40 U/L (15-37); Alanine Aminotransfer ALT/SGPT 46 U/L (16-61); Albumin, Serum 4.1 g/dL (3.2-5.0); Alkaline Phosphatase 85 U/L (45-117); Anion Gap 5 (5-15); BUN 15 mg/dL (7-18); BUN/Creat Ratio 13.6 RATIO (10-20); Chloride 106 mmol/L (98-107); EST Glomerular Filtration Rate 70 mL/min (>60); Est Glom Filt Rate - Afr Amer 85 mL/min (>60); Glucose 93 mg/dL (74-106); Protein, Total 7.1 g/dL (6.4-8.2); Sodium Level 140 mmol/L (136-145); Thyroid Stim Hormone (TSH) 4.28 uIU/mL (0.358-3.74)
== END | disposition home or self-care (01) ==
LOC: POLAB3 09:05
PROVIDERS: PCP Family Medicine Geriatric Medicine; Referring Provider Family Medicine Geriatric Medicine; Visit Provider Family Medicine Geriatric Medicine
DX: E23.6 Other disorders of pituitary gland (principal); E55.9 Vitamin D deficiency, unspecified; I10 Essential (primary) hypertension
CPT/HCPCS: 36415; 80053; 82306; 84403; 84443; 85025

== ENCOUNTER → 2021-12-22 | Outpatient (CLI) | payer MEDICARE, OTHER, SELFPAY ==
[2021-12-22 11:57] LABS: Absolute Neutrophil Count 2.6 X10^3/uL (2.0-7.7); Basophil# 0.05 X10^3/uL; Eosinophil# 0.27 X10^3/uL; Eosinophils% 5.5 % (0-5); Hematocrit 43.9 % (40-54); Hemoglobin 14.7 g/dL (13.0-16.5); Lymphocyte % 28.3 % (19-41); Mean Corp Hgb Conc 33.5 g/dL (32-36); Mean Corpuscular Hgb 28.6 pg (27.0-32.0); Mean Corpuscular Volume 85.4 fL (80-94); Mean Platelet Vol. 10.4 fl (6.2-12.0); Monocyte# 0.59 X10^3/uL; Monocyte% 11.9 % (0-10); NRBC Flagged by Analyzer 0 % (0-5); Neutrophil % 52.7 % (47-70); Platelet Count 228 K/mm3 (150-450); RBC Distribution Width CV 12.4 % (11.6-14.6); RBC Distribution Width SD 38.1 fl (35.1-43.9); Red Blood Count 5.14 M/mm3 (4.6-6.2); White Blood Count 4.9 K/mm3 (4.4-11.0)
[2021-12-22 12:30] LABS: ALB/GLOB Ratio 1.2 RATIO (0.9-2.4); AST(SGOT) 36 U/L (15-37); Alanine Aminotransfer ALT/SGPT 37 U/L (16-61); Albumin, Serum 3.7 g/dL (3.2-5.0); Alkaline Phosphatase 78 U/L (45-117); Anion Gap 4 (5-15); BUN 17 mg/dL (7-18); BUN/Creat Ratio 15.5 RATIO (10-20); Calcium,Total 9.4 mg/dL (8.5-10.1); Chloride 110 mmol/L (98-107); EST Glomerular Filtration Rate 70 mL/min (>60); Est Glom Filt Rate - Afr Amer 85 mL/min (>60); Globulin 3.1 g/dL (2.2-4.2); Glucose 96 mg/dL (74-106); Potassium 4.3 mmol/L (3.5-5.1); Protein, Total 6.8 g/dL (6.4-8.2); Sodium Level 140 mmol/L (136-145)
== END | disposition home or self-care (01) ==
LOC: MTLAB 10:43
PROVIDERS: PCP Family Medicine Geriatric Medicine; Referring Provider Internal Medicine Rheumatology; Visit Provider Internal Medicine Rheumatology
DX: M06.4 Inflammatory polyarthropathy (principal); M21.6X1 Other acquired deformities of right foot; F41.9 Anxiety disorder, unspecified; F32.A Depression, unspecified; I10 Essential (primary) hypertension; N40.1 Benign prostatic hyperplasia with lower urinary tract symptoms; K76.0 Fatty (change of) liver, not elsewhere classified; Z79.899 Other long term (current) drug therapy
CPT/HCPCS: 36415; 80053; 85025

== ENCOUNTER → 2022-01-15 | Outpatient (CLI) | payer MEDICARE, OTHER, SELFPAY ==
[2022-01-15 11:31] LABS: Thyroid Stim Hormone (TSH) 2.99 uIU/mL (0.358-3.74)
== END | disposition home or self-care (01) ==
LOC: LAB 10:18
PROVIDERS: PCP Family Medicine Geriatric Medicine; Referring Provider Family Medicine Geriatric Medicine; Visit Provider Family Medicine Geriatric Medicine
DX: E03.9 Hypothyroidism, unspecified (principal)
CPT/HCPCS: 36415; 84443

== ENCOUNTER → 2022-03-06 | Outpatient (CLI) | payer MEDICARE, OTHER, SELFPAY ==
[2022-03-06 17:49] LABS: Iron 54 ug/dL (65-175)
[2022-03-06 17:51] LABS: Vitamin D,25 Hydroxy 28.4 ng/mL
== END | disposition home or self-care (01) ==
LOC: LAB 15:51
PROVIDERS: PCP Family Medicine Geriatric Medicine; Referring Provider Family Medicine Geriatric Medicine; Visit Provider Family Medicine Geriatric Medicine
DX: D50.9 Iron deficiency anemia, unspecified (principal); E55.9 Vitamin D deficiency, unspecified
CPT/HCPCS: 36415; 82306; 83540

== ENCOUNTER → 2022-03-10 | Outpatient (CLI) | payer MEDICARE, OTHER, SELFPAY ==
[2022-03-10 08:52] LABS: Absolute Lymphocyte Count 1.23 X10^3/uL (0.83-4.51); Absolute Neutrophil Count 5.5 X10^3/uL (2.0-7.7); Basophil# 0.04 X10^3/uL; Basophil% 0.5 % (0-1); Eosinophil# 0.03 X10^3/uL; Eosinophils% 0.4 % (0-5); Hematocrit 44.4 % (40-54); Hemoglobin 14.9 g/dL (13.0-16.5); Lymphocyte # 1.23 X10^3/ul (0.83-4.51); Lymphocyte % 16.7 % (19-41); Mean Corp Hgb Conc 33.6 g/dL (32-36); Mean Corpuscular Volume 86.5 fL (80-94); Mean Platelet Vol. 10.3 fl (6.2-12.0); Monocyte# 0.57 X10^3/uL; Monocyte% 7.7 % (0-10); NRBC Flagged by Analyzer 0 % (0-5); Neutrophil # 5.45 X10^3/uL (2.7-7.7); Neutrophil % 73.9 % (47-70); Platelet Count 250 K/mm3 (150-450); RBC Distribution Width CV 12.6 % (11.6-14.6); RBC Distribution Width SD 39.9 fl (35.1-43.9); Red Blood Count 5.13 M/mm3 (4.6-6.2); White Blood Count 7.4 K/mm3 (4.4-11.0)
== END | disposition home or self-care (01) ==
LOC: LAB 07:44
PROVIDERS: PCP Family Medicine Geriatric Medicine; Referring Provider Family Medicine Geriatric Medicine; Visit Provider Family Medicine Geriatric Medicine
DX: D50.9 Iron deficiency anemia, unspecified (principal)
CPT/HCPCS: 36415; 85025

== ENCOUNTER 2022-06-01 10:17 | Outpatient (CLI) | payer MEDICARE, OTHER, SELFPAY ==
[2022-06-01 11:04] LABS: Absolute Lymphocyte Count 1.24 X10^3/uL (0.83-4.51); Absolute Neutrophil Count 3.1 X10^3/uL (2.0-7.7); Basophil# 0.06 X10^3/uL; Basophil% 1.2 % (0-1); Eosinophil# 0.21 X10^3/uL; Eosinophils% 4.1 % (0-5); Hematocrit 43.6 % (40-54); Lymphocyte # 1.24 X10^3/ul (0.83-4.51); Mean Corp Hgb Conc 34.4 g/dL (32-36); Mean Corpuscular Hgb 29.3 pg (27.0-32.0); Mean Corpuscular Volume 85.2 fL (80-94); Mean Platelet Vol. 10.2 fl (6.2-12.0); Monocyte# 0.57 X10^3/uL; NRBC Flagged by Analyzer 0 % (0-5); Neutrophil # 3.07 X10^3/uL (2.7-7.7); Neutrophil % 59.3 % (47-70); Platelet Count 230 K/mm3 (150-450); RBC Distribution Width CV 12.3 % (11.6-14.6); RBC Distribution Width SD 38.2 fl (35.1-43.9); Red Blood Count 5.12 M/mm3 (4.6-6.2); White Blood Count 5.2 K/mm3 (4.4-11.0)
[2022-06-01 11:34] LABS: Vitamin D,25 Hydroxy 17.9 ng/mL
[2022-06-01 11:45] LABS: ALB/GLOB Ratio 1.3 RATIO (0.9-2.4); AST(SGOT) 41 U/L (15-37); Alanine Aminotransfer ALT/SGPT 30 U/L (16-61); Albumin, Serum 3.9 g/dL (3.2-5.0); Alkaline Phosphatase 79 U/L (45-117); Anion Gap 7 (5-15); BUN 18 mg/dL (7-18); BUN/Creat Ratio 19.9 RATIO (10-20); Calcium,Total 9.5 mg/dL (8.5-10.1); Chloride 110 mmol/L (98-107); Creatinine, Serum 0.91 mg/dL (0.70-1.30); EST Glomerular Filtration Rate 88 mL/min (>60); Est Glom Filt Rate - Afr Amer 106 mL/min (>60); Globulin 3.1 g/dL (2.2-4.2); Glucose 101 mg/dL (74-106); Potassium 4.1 mmol/L (3.5-5.1); Sodium Level 142 mmol/L (136-145); Thyroid Stim Hormone (TSH) 3.43 uIU/mL (0.358-3.74)
== END 2022-06-01 23:59 | disposition home or self-care (01) ==
LOC: LAB 10:18
PROVIDERS: PCP Family Medicine Geriatric Medicine; Referring Provider Family Medicine Geriatric Medicine; Visit Provider Family Medicine Geriatric Medicine
DX: E55.9 Vitamin D deficiency, unspecified (principal); R53.83 Other fatigue
CPT/HCPCS: 36415; 80053; 82306; 84403; 84443; 85025

== ENCOUNTER → 2022-06-25 | Outpatient (CLI) | payer MEDICARE, OTHER, SELFPAY ==
[2022-06-25 10:11] LABS: Absolute Lymphocyte Count 1.53 X10^3/uL (0.83-4.51); Absolute Neutrophil Count 2.5 X10^3/uL (2.0-7.7); Basophil# 0.05 X10^3/uL; Eosinophil# 0.19 X10^3/uL; Hematocrit 47.4 % (40-54); Hemoglobin 15.9 g/dL (13.0-16.5); Lymphocyte # 1.53 X10^3/ul (0.83-4.51); Lymphocyte % 31.9 % (19-41); Mean Corp Hgb Conc 33.5 g/dL (32-36); Mean Corpuscular Hgb 29.1 pg (27.0-32.0); Mean Corpuscular Volume 86.7 fL (80-94); Mean Platelet Vol. 10.6 fl (6.2-12.0); Monocyte# 0.48 X10^3/uL; NRBC Flagged by Analyzer 0 % (0-5); Neutrophil # 2.52 X10^3/uL (2.7-7.7); Neutrophil % 52.7 % (47-70); Platelet Count 218 K/mm3 (150-450); RBC Distribution Width CV 12.2 % (11.6-14.6); RBC Distribution Width SD 38.7 fl (35.1-43.9); Red Blood Count 5.47 M/mm3 (4.6-6.2); White Blood Count 4.8 K/mm3 (4.4-11.0)
[2022-06-25 10:32] LABS: ALB/GLOB Ratio 1.4 RATIO (0.9-2.4); AST(SGOT) 37 U/L (15-37); Alanine Aminotransfer ALT/SGPT 34 U/L (16-61); Albumin, Serum 3.9 g/dL (3.2-5.0); Alkaline Phosphatase 81 U/L (45-117); Anion Gap 5 (5-15); BUN 16 mg/dL (7-18); BUN/Creat Ratio 17.5 RATIO (10-20); Calcium,Total 9.6 mg/dL (8.5-10.1); Chloride 106 mmol/L (98-107); Creatinine, Serum 0.92 mg/dL (0.70-1.30); EST Glomerular Filtration Rate 86 mL/min (>60); Est Glom Filt Rate - Afr Amer 105 mL/min (>60); Globulin 2.7 g/dL (2.2-4.2); Glucose 96 mg/dL (74-106); Potassium 4.2 mmol/L (3.5-5.1); Protein, Total 6.6 g/dL (6.4-8.2); Sodium Level 141 mmol/L (136-145)
== END | disposition home or self-care (01) ==
LOC: MTLAB 08:54
PROVIDERS: PCP Family Medicine Geriatric Medicine; Referring Provider Internal Medicine Rheumatology; Visit Provider Internal Medicine Rheumatology
DX: M06.4 Inflammatory polyarthropathy (principal); M21.6X1 Other acquired deformities of right foot; F41.9 Anxiety disorder, unspecified; F32.9 Major depressive disorder, single episode, unspecified; I10 Essential (primary) hypertension; N40.1 Benign prostatic hyperplasia with lower urinary tract symptoms; K76.0 Fatty (change of) liver, not elsewhere classified; Z79.899 Other long term (current) drug therapy
CPT/HCPCS: 36415; 80053; 85025

== ENCOUNTER → 2022-11-21 | Outpatient (CLI) | payer MEDICARE, OTHER, SELFPAY ==
[2022-11-21 13:53] LABS: Absolute Lymphocyte Count 1.59 X10^3/uL (0.83-4.51); Basophil# 0.06 X10^3/uL; Basophil% 1.1 % (0-1); Eosinophil# 0.19 X10^3/uL; Eosinophils% 3.4 % (0-5); Hematocrit 49.3 % (40-54); Hemoglobin 16.1 g/dL (13.0-16.5); Lymphocyte # 1.59 X10^3/ul (0.83-4.51); Mean Corp Hgb Conc 32.7 g/dL (32-36); Mean Corpuscular Hgb 28.1 pg (27.0-32.0); Mean Corpuscular Volume 86.2 fL (80-94); Mean Platelet Vol. 10.8 fl (6.2-12.0); Monocyte% 14.1 % (0-10); NRBC Flagged by Analyzer 0 % (0-5); Neutrophil # 3.01 X10^3/uL (2.7-7.7); Platelet Count 237 K/mm3 (150-450); RBC Distribution Width CV 12.8 % (11.6-14.6); RBC Distribution Width SD 39.6 fl (35.1-43.9); Red Blood Count 5.72 M/mm3 (4.6-6.2); White Blood Count 5.7 K/mm3 (4.4-11.0)
[2022-11-21 14:21] LABS: Vitamin D,25 Hydroxy 34.8 ng/mL
[2022-11-21 14:38] LABS: ALB/GLOB Ratio 1.3 RATIO (0.9-2.4); AST(SGOT) 43 U/L (15-37); Alanine Aminotransfer ALT/SGPT 39 U/L (16-61); Albumin, Serum 4.1 g/dL (3.2-5.0); Alkaline Phosphatase 85 U/L (45-117); Anion Gap 9 (5-15); BUN 18 mg/dL (7-18); BUN/Creat Ratio 18.3 RATIO (10-20); Calcium,Total 9.7 mg/dL (8.5-10.1); Chloride 107 mmol/L (98-107); Creatinine, Serum 0.98 mg/dL (0.70-1.30); EST Glomerular Filtration Rate 80 mL/min (>60); Est Glom Filt Rate - Afr Amer 96 mL/min (>60); Globulin 3.1 g/dL (2.2-4.2); Glucose 89 mg/dL (74-106); Protein, Total 7.2 g/dL (6.4-8.2); Sodium Level 141 mmol/L (136-145); Thyroid Stim Hormone (TSH) 5.87 uIU/mL (0.358-3.74)
== END | disposition home or self-care (01) ==
LOC: LAB 12:17
PROVIDERS: PCP Family Medicine Geriatric Medicine; Referring Provider Family Medicine Geriatric Medicine; Visit Provider Family Medicine Geriatric Medicine
DX: I10 Essential (primary) hypertension (principal); E55.9 Vitamin D deficiency, unspecified
CPT/HCPCS: 36415; 80053; 82306; 84443; 85025

== ENCOUNTER → 2022-12-11 | Outpatient (CLI) | payer MEDICARE, OTHER, SELFPAY ==
[2022-12-11 15:24] LABS: Absolute Lymphocyte Count 1.51 X10^3/uL (0.83-4.51); Absolute Neutrophil Count 3.3 X10^3/uL (2.0-7.7); Basophil# 0.05 X10^3/uL; Basophil% 0.9 % (0-1); Eosinophil# 0.21 X10^3/uL; Eosinophils% 3.7 % (0-5); Hematocrit 47.7 % (40-54); Hemoglobin 15.6 g/dL (13.0-16.5); Lymphocyte # 1.51 X10^3/ul (0.83-4.51); Lymphocyte % 26.9 % (19-41); Mean Corp Hgb Conc 32.7 g/dL (32-36); Mean Corpuscular Hgb 28.6 pg (27.0-32.0); Mean Corpuscular Volume 87.4 fL (80-94); Mean Platelet Vol. 10.5 fl (6.2-12.0); Monocyte% 8.9 % (0-10); NRBC Flagged by Analyzer 0 % (0-5); Neutrophil # 3.33 X10^3/uL (2.7-7.7); Neutrophil % 59.2 % (47-70); Platelet Count 231 K/mm3 (150-450); RBC Distribution Width SD 41.1 fl (35.1-43.9); Red Blood Count 5.46 M/mm3 (4.6-6.2); White Blood Count 5.6 K/mm3 (4.4-11.0)
[2022-12-11 15:37] LABS: ALB/GLOB Ratio 1.3 RATIO (0.9-2.4); AST(SGOT) 35 U/L (15-37); Alanine Aminotransfer ALT/SGPT 37 U/L (16-61); Alkaline Phosphatase 81 U/L (45-117); Anion Gap 5 (5-15); BUN 19 mg/dL (7-18); BUN/Creat Ratio 19.6 RATIO (10-20); Calcium,Total 9.3 mg/dL (8.5-10.1); Chloride 110 mmol/L (98-107); Creatinine, Serum 0.97 mg/dL (0.70-1.30); EST Glomerular Filtration Rate 81 mL/min (>60); Est Glom Filt Rate - Afr Amer 98 mL/min (>60); Glucose 83 mg/dL (74-106); Potassium 4.4 mmol/L (3.5-5.1); Sodium Level 140 mmol/L (136-145)
== END | disposition home or self-care (01) ==
LOC: MTLAB 12:36
PROVIDERS: PCP Family Medicine Geriatric Medicine; Referring Provider Internal Medicine Rheumatology; Visit Provider Internal Medicine Rheumatology
DX: M06.4 Inflammatory polyarthropathy (principal); Z79.899 Other long term (current) drug therapy; M21.6X1 Other acquired deformities of right foot
CPT/HCPCS: 36415; 80053; 85025

== ENCOUNTER → 2023-01-11 | Outpatient (CLI) | payer MEDICARE, OTHER, SELFPAY ==
--- NOTE | 2023-01-11 07:24 | ECHOCS_ITS ---
Reason For Study: Chest Pain Procedure This was a 2D Doppler, Color Flow transthoracic echocardiogram. The study was technically difficult. Contrast injection was performed. Exam performed in department. Left Ventricle Normal LV size. Left ventricular systolic function is normal. The estimated ejection fraction is 60 %. Stage 1 diastolic dysfunction. No regional wall motion abnormalities noted. Right Ventricle Normal RV size. Normal systolic function. Atria Normal left atrium. Normal right atrium. Mitral Valve Normal mitral valve. Tricuspid Valve Normal tricuspid valve. Mild (1+) tricuspid valve insufficiency. Pulmonary artery systolic pressure is 35 mmHg. Aortic Valve Trisinus/trileaflet aortic valve. Pulmonic Valve Normal pulmonic valve. Great Vessels Normal aortic root. The pulmonary artery is normal size. Normal inferior vena cava. Pericardium/Pleural No pericardial effusion. Medication 22 gauge I.V. with prn adaptor inserted into left arm. Diluted definity 2.5ml given slow IV push to enhance endocardial definition. MMode/2D Measurements & Calculations LVIDd: 5.2 cm IVSd: 1.0 cm Ao root diam: 3.5 cm LVIDs: 3.2 cm LVPWd: 1.1 cm LA dimension: 4.3 cm RVDd: 5.1 cm FS: 38.3 % LAV(MOD-bp): 61.6 ml LVAd ap4: 33.3 cm2 SV(MOD-sp4): 72.1 ml LAV(MOD-bp) Indexed: 27.2 ml/m2 LVLd ap4: 8.4 cm LAV(MOD-sp2): 58.4 ml EDV(MOD-sp4): 109.3 ml LAV(MOD-sp4): 58.4 ml EDV(sp4-el): 111.5 ml LVAs ap4: 16.8 cm2 LVLs ap4: 6.6 cm ESV(MOD-sp4): 37.2 ml ESV(sp4-el): 36.3 ml EF(MOD-sp4): 66.0 % EF(sp4-el): 67.4 % SV(sp4-el): 75.2 ml LA A4 area: 20.2 cm2 RA A4 area: 21.9 cm2 Time Measurements MV dec time: 0.23 sec Doppler Measurements & Calculations MV E max thai: 75.2 cm/sec Lat Peak E' Thai: 10.0 cm/sec Med Peak E' Thai: 9.3 cm/sec MV A max thai: 89.8 cm/sec E/E' lat: 7.5 E/E' med: 8.1 MV E/A: 0.84 MV V2 max: 87.0 cm/sec MV P1/2t max thai: 74.8 cm/sec Ao V2 max: 152.5 cm/sec MV max P.0 mmHg MV P1/2t: 68.9 msec Ao max P.3 mmHg MV V2 mean: 37.4 cm/sec Ao V2 mean: 95.8 cm/sec MV mean P.75 mmHg MV dec slope: 317.9 cm/sec2 Ao mean P.5 mmHg MV V2 VTI: 32.5 cm MVA(P1/2t): 3.2 cm2 Ao V2 VTI: 36.8 cm AV (velocity ratio): 0.78 LV V1 max: 121.8 cm/sec PA V2 max: 98.9 cm/sec LV V1 max P.0 mmHg PA V2 mean: 65.4 cm/sec PI dec slope: 80.0 cm/sec2 LV V1 mean P.2 mmHg LV V1 mean: 84.3 cm/sec LV V1 VTI: 28.9 cm TR max thai: 283.8 cm/sec TR max P.2 mmHg ECHO/Echo Complete W/ Contrast Interpretation Summary Normal LV size. Left ventricular systolic function is normal. The estimated ejection fraction is 60 %. Stage 1 diastolic dysfunction. Pulmonary artery systolic pressure is 35 mmHg. Contrast injection was performed. Ordering Physician: Jigna Uriostegui Referring Physician: Miki Collazo Chi Performed By: Rony Watts RCS
[2023-01-11 11:54] LABS: Thyroid Stim Hormone (TSH) 2.65 uIU/mL (0.358-3.74)
--- NOTE | 2023-01-11 15:29 | STRESSREP ---
Stress Test Report Exercise myocardial perfusion stress test. 72-year-old man with a history of chest pain Stress protocol: Resting EKG demonstrates sinus bradycardia with a rate of 46 bpm resting blood pressure is 138/82 mmHg. The patient exercised according to the regular Aric protocol for a total duration of 6 minutes attaining a maximum heart rate of 126 bpm which was 85% of maximum predicted heart rate; the maximum workload was 7.2 metabolic equivalents. At rest there were no ST or T wave changes noted to suggest ischemia and at peak exercise upsloping ST changes only were noted which did not meet the criteria for ischemia. No clinical angina was noted the test was terminated due to the target heart rate being achieved/fatigue. The peak blood pressure was 184/88 mmHg. Rate-pressure product was 20,100. Myocardial perfusion protocol. 12 mCi of technetium 99m sestamibi was injected at rest. The patient exercised according to regular Aric protocol for total duration of 6 minutes and at peak exercise 36 mCi of technetium 99m sestamibi was injected stress images were obtained stress and rest images were reconstructed in comparing the short axis vertical long and horizontal long axis. Gated images were also obtained. Perfusion SPECT analysis: Review of the stress images demonstrate normal uptake of tracer noted in all areas of the myocardium. The resting images similarly demonstrate normal uptake of tracer noted in all areas of the myocardium. No areas of reversibility are noted to suggest ischemia no previous infarct was noted. Gated SPECT analysis: The gated ejection fraction is 64%. Conclusion: Normal exercise myocardial perfusion stress test at a moderate workload Preserved ejection fraction.
== END | disposition home or self-care (01) ==
PROVIDERS: PCP Family Medicine Geriatric Medicine; Referring Provider Physician Assistant Medical; Visit Provider Physician Assistant Medical
DX: R07.9 Chest pain, unspecified (principal); R00.2 Palpitations; R06.02 Shortness of breath; I10 Essential (primary) hypertension; Q21.10 Atrial septal defect, unspecified
CPT/HCPCS: 36415; 78452; 84443; 93017; 93306; A9500; Q9957; A4216; C8929

== ENCOUNTER 2023-03-28 08:31 | Emergency (ER) | payer MEDICARE, OTHER, SELFPAY ==
[2023-03-28 08:32] VITALS: BP 132/72; PULSE 42; RESP 14; TEMP 36.4; O2SAT 98; BMI 28.2
--- NOTE | 2023-03-28 09:15 | RAD_ITS ---
STUDY: X-RAY - RIGHT KNEE REASON FOR EXAM: Male, 72 years old. Knee pain TECHNIQUE: 4 view(s) of the knee. COMPARISON: Comparison is made with prior study May 12, 2021. FINDINGS: Normal visualized distal femur. Normal visualized proximal tibia and fibula. Normal proximal tibiofibular articulation. There is mild degenerative arthrosis of the medial femorotibial compartment. Normal lateral femorotibial compartment. There is mild degenerative arthrosis of the patellofemoral articulation. The soft tissue structures are unremarkable. RAD/Knee 4 or More Views IMPRESSION: Degenerative arthrosis. Electronically Signed: Sam De Los Santos MD at 10:20 EDT ,
--- NOTE | 2023-03-28 09:16 | ED.VIS.LOWEX ---
HPI History of Present Illness HPI Narrative: 72-year-old male no prior right knee surgery. He was doing stepped in the garage last night he felt like his kneecap dropped inferior. He said he moved back in place since that time has had intermittent pain primarily with walking. Denies any fall or trauma otherwise. He is never had knee surgery. Chief Complaint: Lower Extremity Injury Informant: patient and spouse/S.O. Occured/Mechanism Mechanism/Context: No injury and No blunt trauma Onset/Context/Timing Onset: Today and Yesterday Context: Sudden Onset Timing: Intermittent Quality of Pain: Dull and Aching Current Severity: Gone Maximum Severity: Mild Associated Symptoms Associated Symptoms: Negative for Parasthesia, Weakness or Loss of Funtion Narrative Narrative: 72-year-old male was working in his garage yet today when he felt like his right patella may have dislocated inferiorly. He put it back in place. Since that time has had some discomfort to his right knee. He denies any fall injury or trauma. Prior similar symptoms: No Recent Illness/Hospitalization: No PFSH PFSH Medical History Asthma Atrial septal defect BPH (benign prostatic hyperplasia) Chest pain Claudication Depression Essential hypertension Family history of ischemic heart disease Family history of sudden cardiac Fatigue Hyperlipidemia Hypertension Hypothyroidism Long-term use of high-risk medication Osteoarthritis SOB (shortness of breath) Umbilical hernia Umbilical hernia without obstruction and without gangrene Home Medications amlodipine 10 mg tablet 10 mg PO QDAY 09/02/17 [History Last Taken Unknown] venlafaxine 75 mg tablet 75 mg PO QDAY 09/02/17 [History Last Taken Unknown] finasteride 5 mg tablet 5 mg PO DAILY 09/25/19 [History Last Taken Unknown] hydroxychloroquine 200 mg tablet 200 mg PO BID arthritis 01/17/21 [History Last Taken 01/16/21 22:00 200 mg] aspirin 81 mg chewable tablet 81 mg PO DAILY 01/02/23 [History Last Taken Unknown] cholecalciferol (vitamin D3) 125 mcg (5,000 unit) tablet 125 mcg PO QMONTH supplement 01/02/23 [History Last Taken Unknown] levothyroxine 50 mcg tablet 50 mcg PO DAILY 01/02/23 [History Last Taken Unknown] Allergy/AdvReac Type Severity Reaction Status Date / Time No Known Allergies Allergy Verified 03/28/23 08:32 Family History Father Myocardial infarction Sudden cardiac Hypertension Cancer skin cancer Brother Myocardial infarction, Onset Age: 50 Brother Sudden cardiac , Onset Age: 30 Mother Arthritis Diabetes Surgical History History of hernia repair Social History current occupational status: employed Smoking Status: Never smoker alcohol intake: never substance use type: does not use ROS ROS ED ROS Narrative Denies recent illness. Review of Systems ROS Unobtainable: Denies due to encephalopathy Constitutional Constitutional ED: Denies chills or fever(s) Eyes Eyes: Denies blurry vision ENT ENT ED: Denies ear pain Cardiovascular Cardiovascular: Denies chest pain Respiratory/Chest Respiratory/Chest: Denies cough or dyspnea Gastrointestinal Gastrointestinal: Denies abdominal pain Genitourinary Genitourinary ED: Denies dysuria or hematuria Integumentary Denies abscess Neurologic Neurologic: Denies headache(s) Psychiatric Psychiatric: Denies anxiety Endocrine Endocrinology: Denies polydipsia Hematologic/Lymphatic Hematologic/Lymphatic: Denies easy bleeding Allergic/Immunologic Allergic/Immunologic ED: Denies mouth swelling EXAM Physical Exam Narrative Exam Narrative: 2-year-old male no acute distress. at bedside. Vital signs stable afebrile. H EENT exam unremarkable. Atraumatic. Neck nontender. Lungs clear. Heart regular rhythm no murmur. Rate about 60. Chest wall and ribs nontender. Abdomen soft nontender. Moves all 4 extremities. Neurovascular intact. Specifically right hip right knee, right ankle and foot are nontender neurovascular intact. Full flexion extension of the right hip, knee ankle and foot. Normal dorsi plantarflexion. Normal DP pulse. Calf is nontender. No edema. Right knee his quadriceps patellar and infrapatellar tendon are intact. He can lift his heel off the bed. He has normal flexion extension. ACL and PCL appear to be intact. As do the MCL and LCL. There is no effusion. No redness or warmth. There is no swelling. No signs of trauma. Const Vital Signs: 03/28/23 08:32 Temperature 97.6 F L Temperature Source Temporal Pulse Rate 42 L Respiratory Rate 14 Blood Pressure 132/72 H Blood Pressure Mean 92 Pulse Ox 98 Oxygen Delivery Method Room Air Positive well nourished and well developed; Negative for cachectic, contractures or unkempt General Appearance ED: well developed and NAD; Negative for unkempt, cachectic or contractures Nutritional Appearance: Negative for cachectic HEENT Reports moist mucous membranes normocephalic and atraumatic; Negative for trauma or tenderness Eyes PERRL General Eye ED: Negative for other Neck full ROM and supple Thyroid: Negative for tender Lymph Lymphatic: Negative for other Chest Wall inspection of chest normal and palpation of chest normal Chest: Negative for other Resp normal respiratory effort, no retractions and clear to auscultation bilaterally Effort and Inspection: Negative for pain with movement Auscultation: Negative for rales, rhonchi or wheezes Cardio regular rate, regular rhythm, S1 normal heart sound, S2 normal heart sound and no murmurs Rate: Negative for bradycardia or tachycardic Rhythm: Negative for abnormal rhythm Bruits: Negative for other GI non-tender, non-distended and no masses Inspection: Negative for abdominal distention Auscultation: normoactive bowel sounds Palpation: soft; Negative for tender or guarding Bladder / Kidney Exam: No other Back/Spine no CVA tenderness General Back: Negative for CVA tenderness Cervical Spine: Negative for cervical spine tenderness Thoracic Spine / Upper Back: Negative for thoracic spinal tenderness Lumbar Spine / Lower Back: Negative for lumbar spinal tenderness Extremity normal to inspection and full ROM General Extremety ED: Negative for cyanosis or edema General Extremity: Negative for cyanosis or edema Neuro oriented x3, CN's II-XII intact bilaterally and moves all extremities Sensorium / Orientation: alert, oriented to person, oriented to place and oriented to time; Negative for orientation impaired or confused Motor Exam: strength 5/5 throughout Psych mental status grossly normal Appearance: Negative for unkempt Speech: No other Mood & Affect: Negative for anxious Skin no wounds Lesions: no lesions Rashes: no rashes Trauma: Negative for abrasion or laceration MDM MDM MDM Narrative Medical decision making narrative: 72-year-old male with right knee pain after potentially dislocating his kneecap yesterday in his garage. At this time there is no swelling. There is no effusion. He has normal range of motion. There is no bony abnormality. It is currently not tender. He is able to ambulate with some discomfort. X-ray being obtained. Repeat exam patient doing well at 10:25 AM. Exam unchanged. He did get up and ambulate. Ambulated well. He had some mild discomfort. But no new findings. We went over his x-ray results. Patient be discharged home. Tylenol Motrin for pain. Ice. Follow-up with his orthopedic physician Dr. Avel Nelson for further evaluation and possibly advanced imaging. History & Record Review Discussion w/independent historian: Patient and Family Radiography Diagnostic Testing: Clinical Impression(s) from Imaging Studies Knee X-Ray 03/28/23 09:15 IMPRESSION: Degenerative arthrosis. Electronically Signed: Sam De Los Santos MD at 10:20 EDT , Right knee x-ray multiple views interpreted by myself and the radiologist shows no acute abnormality. Chronic arthritis. No significant effusion. No fracture. Kneecap is in good position. No fracture or dislocation noted. Discharge Plan Triage Chief Complaint: Lower Extremity Injury ED Provider: Isaac Dhaliwal Dx/Rx/DC Orders Clinical Impression: Acute knee pain Instructions: Knee Pain Prescriptions: No Action venlafaxine 75 mg tablet 75 mg PO QDAY amlodipine 10 mg tablet 10 mg PO QDAY levothyroxine 50 mcg tablet 50 mcg PO DAILY Patient Comments: TAKE 1 TABLET BY MOUTH ONCE DAILY aspirin 81 mg tablet,chewable 81 mg PO DAILY finasteride 5 MG tablet 5 mg PO DAILY hydroxychloroquine 200 mg Tablet 200 mg PO BID cholecalciferol (vitamin D3) 125 mcg (5,000 unit) tablet 125 mcg PO QMONTH Primary Care Provider: Miki Collazo Chi Referrals: Pankaj Nelson MD [Med Staff - Active Staff] - 1 Week if not improving Miki Collazo Chi, MD [Primary Care Provider] - Activity Restrictions/Additional Instructions: The extremities are me looks good except for some arthritis. Ice to the knee decrease pain and prevent any swelling. Motrin and Tylenol for pain. If this is not improving follow-up with your orthopedic physician Dr. Avel Nelson for further evaluation. Disposition Disposition: Home, Self Care
== END 2023-03-28 10:38 | disposition home or self-care (01) ==
PROVIDERS: Emergency Provider Emergency Medicine; PCP Family Medicine Geriatric Medicine; Visit Provider Emergency Medicine
DX: M25.561 Pain in right knee (principal)
CPT/HCPCS: 73564; 99282

== ENCOUNTER → 2023-04-10 | Outpatient (CLI) | payer MEDICARE, OTHER, SELFPAY | END | disposition home or self-care (01) | LOC: SL 20:06 | PROVIDERS: PCP Family Medicine Geriatric Medicine; Referring Provider Nurse Practitioner Family; Visit Provider Nurse Practitioner Family | DX: G47.10 Hypersomnia, unspecified (principal) | CPT/HCPCS: 95810 ==

== ENCOUNTER → 2023-05-09 | Outpatient (CLI) | payer MEDICARE, OTHER, SELFPAY | END | disposition home or self-care (01) | LOC: SL 08:59 | PROVIDERS: PCP Family Medicine Geriatric Medicine; Visit Provider Nurse Practitioner Acute Care | DX: R69 Illness, unspecified (principal) ==

== ENCOUNTER → 2023-06-06 | Outpatient (CLI) | payer MEDICARE, OTHER, SELFPAY ==
[2023-06-06 11:21] LABS: Absolute Lymphocyte Count 1.26 X10^3/uL (0.83-4.51); Absolute Neutrophil Count 2.5 X10^3/uL (2.0-7.7); Basophil# 0.06 X10^3/uL; Basophil% 1.3 % (0-1); Eosinophil# 0.23 X10^3/uL; Hematocrit 44.8 % (40-54); Hemoglobin 14.9 g/dL (13.0-16.5); Lymphocyte # 1.26 X10^3/ul (0.83-4.51); Lymphocyte % 27.5 % (19-41); Mean Corp Hgb Conc 33.3 g/dL (32-36); Mean Corpuscular Hgb 28.5 pg (27.0-32.0); Mean Corpuscular Volume 85.7 fL (80-94); Mean Platelet Vol. 10.6 fl (6.2-12.0); Monocyte# 0.49 X10^3/uL; Monocyte% 10.7 % (0-10); NRBC Flagged by Analyzer 0 % (0-5); Neutrophil # 2.54 X10^3/uL (2.7-7.7); Neutrophil % 55.3 % (47-70); Platelet Count 222 K/mm3 (150-450); RBC Distribution Width CV 12.6 % (11.6-14.6); RBC Distribution Width SD 39.2 fl (35.1-43.9); Red Blood Count 5.23 M/mm3 (4.6-6.2); White Blood Count 4.6 K/mm3 (4.4-11.0)
[2023-06-06 11:53] LABS: Vitamin D,25 Hydroxy 29.5 ng/mL
[2023-06-06 12:02] LABS: ALB/GLOB Ratio 1.3 RATIO (0.9-2.4); AST(SGOT) 40 U/L (15-37); Alanine Aminotransfer ALT/SGPT 37 U/L (16-61); Albumin, Serum 3.8 g/dL (3.2-5.0); Alkaline Phosphatase 83 U/L (45-117); Anion Gap 4 (5-15); BUN 20 mg/dL (7-18); BUN/Creat Ratio 16.3 RATIO (10-20); Calcium,Total 9.4 mg/dL (8.5-10.1); Chloride 110 mmol/L (98-107); Creatinine, Serum 1.23 mg/dL (0.70-1.30); EST Glomerular Filtration Rate 61 mL/min (>60); Est Glom Filt Rate - Afr Amer 74 mL/min (>60); Glucose 98 mg/dL (74-106); Protein, Total 6.8 g/dL (6.4-8.2); Sodium Level 142 mmol/L (136-145); Thyroid Stim Hormone (TSH) 4.04 uIU/mL (0.358-3.74)
== END | disposition home or self-care (01) ==
LOC: POLAB3 10:59
PROVIDERS: PCP Family Medicine Geriatric Medicine; Visit Provider Family Medicine Geriatric Medicine
DX: I10 Essential (primary) hypertension (principal); E55.9 Vitamin D deficiency, unspecified
CPT/HCPCS: 36415; 80053; 82306; 84443; 85025

== ENCOUNTER → 2023-10-17 | Outpatient (CLI) | payer MEDICARE, OTHER, SELFPAY | END | disposition home or self-care (01) | LOC: SL 11:20 | PROVIDERS: PCP Family Medicine Geriatric Medicine; Referring Provider Nurse Practitioner Acute Care; Visit Provider Nurse Practitioner Acute Care | DX: G47.33 Obstructive sleep apnea (adult) (pediatric) (principal) | CPT/HCPCS: 98960; G0463 ==

== ENCOUNTER → 2023-11-08 | Outpatient (CLI) | payer MEDICARE, OTHER, SELFPAY ==
--- NOTE | 2023-11-08 11:58 | RAD_ITS ---
STUDY: X-RAY - RIGHT HAND REASON FOR EXAM: Male, 73 years old. PAIN TECHNIQUE: 3 view(s) of the hand. COMPARISON: None. FINDINGS: Normal radiocarpal articulation. Normal distal radioulnar joint. Normal visualized carpal bones. Normal carpal articulations Normal carpometacarpal articulation of the thumb. Normal second through fifth carpometacarpal joints. Normal metacarpi. Normal metacarpophalangeal joint of the thumb. Normal interphalangeal joint of the thumb. Normal proximal and distal phalanges of the thumb. Arthritic changes of the metacarpophalangeal joints of the second and third fingers. Normal proximal interphalangeal joints of the second through fifth fingers. Mild narrowing of the DIP joints.. Normal phalanges of the second through fifth fingers. The soft tissue structures are unremarkable. RAD/Hand Min 3 Views IMPRESSION: Degenerative changes.. No acute fracture or dislocation Electronically Signed: Santhosh Keith MD at 22:40 EDT ,
== END | disposition home or self-care (01) ==
LOC: RAD 11:56
PROVIDERS: PCP Family Medicine Geriatric Medicine; Referring Provider Family Medicine Geriatric Medicine; Visit Provider Family Medicine Geriatric Medicine
DX: M79.641 Pain in right hand (principal); R68.83 Chills (without fever)
CPT/HCPCS: 73130; 87631

== ENCOUNTER → 2023-11-27 | Outpatient (CLI) | payer MEDICARE, OTHER, SELFPAY ==
[2023-11-27 12:49] LABS: Absolute Lymphocyte Count 1.43 X10^3/uL (0.83-4.51); Absolute Neutrophil Count 3.8 X10^3/uL (2.0-7.7); Basophil# 0.07 X10^3/uL; Basophil% 1.2 % (0-1); Eosinophil# 0.23 X10^3/uL; Eosinophils% 3.8 % (0-5); Hematocrit 47.4 % (40-54); Hemoglobin 15.9 g/dL (13.0-16.5); Lymphocyte # 1.43 X10^3/ul (0.83-4.51); Lymphocyte % 23.6 % (19-41); Mean Corp Hgb Conc 33.5 g/dL (32-36); Mean Corpuscular Hgb 28.8 pg (27.0-32.0); Mean Corpuscular Volume 85.9 fL (80-94); Mean Platelet Vol. 10.2 fl (6.2-12.0); Monocyte# 0.54 X10^3/uL; Monocyte% 8.9 % (0-10); NRBC Flagged by Analyzer 0 % (0-5); Neutrophil # 3.76 X10^3/uL (2.7-7.7); Neutrophil % 62.2 % (47-70); Platelet Count 249 K/mm3 (150-450); RBC Distribution Width CV 12.5 % (11.6-14.6); RBC Distribution Width SD 39.2 fl (35.1-43.9); Red Blood Count 5.52 M/mm3 (4.6-6.2); White Blood Count 6.1 K/mm3 (4.4-11.0)
[2023-11-27 14:08] LABS: ALB/GLOB Ratio 1.2 RATIO (0.9-2.4); AST(SGOT) 43 U/L (15-37); Alanine Aminotransfer ALT/SGPT 50 U/L (16-61); Alkaline Phosphatase 90 U/L (45-117); Anion Gap 4 (5-15); BUN 16 mg/dL (7-18); BUN/Creat Ratio 15.1 RATIO (10-20); Calcium,Total 9.6 mg/dL (8.5-10.1); Chloride 107 mmol/L (98-107); Creatinine, Serum 1.06 mg/dL (0.70-1.30); EST Glomerular Filtration Rate 73 mL/min (>60); Est Glom Filt Rate - Afr Amer 88 mL/min (>60); Globulin 3.2 g/dL (2.2-4.2); Glucose 99 mg/dL (74-106); Potassium 4.4 mmol/L (3.5-5.1); Protein, Total 7.2 g/dL (6.4-8.2); Sodium Level 139 mmol/L (136-145); Thyroid Stim Hormone (TSH) 2.48 uIU/mL (0.358-3.74)
[2023-11-27 14:37] LABS: Vitamin D,25 Hydroxy 26.6 ng/mL
== END | disposition home or self-care (01) ==
LOC: LAB 11:41
PROVIDERS: PCP Family Medicine Geriatric Medicine; Referring Provider Family Medicine Geriatric Medicine; Visit Provider Family Medicine Geriatric Medicine
DX: I10 Essential (primary) hypertension (principal); E55.9 Vitamin D deficiency, unspecified
CPT/HCPCS: 36415; 80053; 82306; 84443; 85025

== ENCOUNTER → 2024-06-08 | Outpatient (CLI) | payer MEDICARE, OTHER, SELFPAY ==
[2024-06-08 11:31] LABS: Absolute Lymphocyte Count 1.67 X10^3/uL (0.83-4.51); Absolute Neutrophil Count 3.2 X10^3/uL (2.0-7.7); Basophil# 0.08 X10^3/uL; Basophil% 1.4 % (0-1); Eosinophil# 0.22 X10^3/uL; Eosinophils% 3.8 % (0-5); Hematocrit 46.2 % (40-54); Hemoglobin 15.3 g/dL (13.0-16.5); Lymphocyte # 1.67 X10^3/ul (0.83-4.51); Lymphocyte % 29.1 % (19-41); Mean Corp Hgb Conc 33.1 g/dL (32-36); Mean Corpuscular Hgb 28.5 pg (27.0-32.0); Mean Platelet Vol. 10.8 fl (6.2-12.0); Monocyte# 0.55 X10^3/uL; Monocyte% 9.6 % (0-10); NRBC Flagged by Analyzer 0 % (0-5); Neutrophil # 3.19 X10^3/uL (2.7-7.7); Neutrophil % 55.8 % (47-70); Platelet Count 242 K/mm3 (150-450); RBC Distribution Width CV 12.8 % (11.6-14.6); RBC Distribution Width SD 39.8 fl (35.1-43.9); Red Blood Count 5.37 M/mm3 (4.6-6.2); White Blood Count 5.7 K/mm3 (4.4-11.0)
[2024-06-08 11:57] LABS: Vitamin D,25 Hydroxy 32.4 ng/mL
[2024-06-08 12:05] LABS: ALB/GLOB Ratio 1.3 RATIO (0.9-2.4); AST(SGOT) 35 U/L (15-37); Alanine Aminotransfer ALT/SGPT 35 U/L (16-61); Albumin, Serum 3.8 g/dL (3.2-5.0); Alkaline Phosphatase 99 U/L (45-117); Anion Gap 5 (5-15); BUN 16 mg/dL (7-18); BUN/Creat Ratio 17.8 RATIO (10-20); Calcium,Total 9.3 mg/dL (8.5-10.1); Chloride 110 mmol/L (98-107); EST Glomerular Filtration Rate 88 mL/min (>60); Est Glom Filt Rate - Afr Amer 107 mL/min (>60); Globulin 2.9 g/dL (2.2-4.2); Glucose 97 mg/dL (74-106); Protein, Total 6.7 g/dL (6.4-8.2); Sodium Level 140 mmol/L (136-145)
== END | disposition home or self-care (01) ==
LOC: POLAB3 10-08 15:52
PROVIDERS: PCP Family Medicine Geriatric Medicine; Visit Provider Family Medicine Geriatric Medicine
DX: E03.9 Hypothyroidism, unspecified (principal); I10 Essential (primary) hypertension; E55.9 Vitamin D deficiency, unspecified
CPT/HCPCS: 36415; 80053; 82306; 84443; 85025

== ENCOUNTER → 2024-06-08 | Outpatient (CLI) | payer MEDICARE, OTHER, SELFPAY | END | disposition home or self-care (01) | LOC: PSN 11:22 | PROVIDERS: PCP Family Medicine Geriatric Medicine; Referring Provider Internal Medicine Cardiovascular Disease; Visit Provider Internal Medicine Cardiovascular Disease | DX: R00.1 Bradycardia, unspecified (principal) | CPT/HCPCS: 93225; 93226 ==

== ENCOUNTER → 2024-12-01 | Outpatient (CLI) | payer MEDICARE, OTHER, SELFPAY ==
[2024-12-01 11:55] LABS: Absolute Lymphocyte Count 1.39 X10^3/uL (0.83-4.51); Absolute Neutrophil Count 2.7 X10^3/uL (2.0-7.7); Basophil# 0.06 X10^3/uL; Basophil% 1.2 % (0-1); Eosinophil# 0.21 X10^3/uL; Eosinophils% 4.3 % (0-5); Hematocrit 44.3 % (40-54); Hemoglobin 14.8 g/dL (13.0-16.5); Lymphocyte # 1.39 X10^3/ul (0.83-4.51); Lymphocyte % 28.5 % (19-41); Mean Corp Hgb Conc 33.4 g/dL (32-36); Mean Corpuscular Volume 86.7 fL (80-94); Mean Platelet Vol. 10.5 fl (6.2-12.0); Monocyte# 0.47 X10^3/uL; Monocyte% 9.6 % (0-10); NRBC Flagged by Analyzer 0 % (0-5); Neutrophil # 2.73 X10^3/uL (2.7-7.7); Platelet Count 226 K/mm3 (150-450); RBC Distribution Width CV 12.6 % (11.6-14.6); RBC Distribution Width SD 39.5 fl (35.1-43.9); Red Blood Count 5.11 M/mm3 (4.6-6.2); White Blood Count 4.9 K/mm3 (4.4-11.0)
[2024-12-01 15:27] LABS: Vitamin D,25 Hydroxy 30.1 ng/mL (30-100)
[2024-12-01 15:29] LABS: ALB/GLOB Ratio 1.8 RATIO (0.9-2.4); AST(SGOT) 40 U/L (<=37); Alanine Aminotransfer ALT/SGPT 25 U/L (<=46); Albumin, Serum 4.3 g/dL (3.4-4.8); Alkaline Phosphatase 90 U/L (40-129); Anion Gap 9 (5-15); BUN 13 mg/dL (4-19); Calcium,Total 9.6 mg/dL (7.6-11.0); Carbon Dioxide 24.9 mmol/L (21.0-32.0); Chloride 106 mmol/L (98-108); Creatinine, Serum 0.85 mg/dL (0.70-1.20); EST Glomerular Filtration Rate 91 (>60); Globulin 2.4 g/dL (2.2-4.2); Glucose 86 mg/dL (70-99); Potassium 4.4 mmol/L (3.3-5.1); Protein, Total 6.7 g/dL (5.9-8.4); Sodium Level 140 mmol/L (133-145); Total Bilirubin 0.25 mg/dL (0.00-1.30)
== END | disposition home or self-care (01) ==
LOC: LAB 11:03
PROVIDERS: PCP Family Medicine Geriatric Medicine; Referring Provider Family Medicine Geriatric Medicine; Visit Provider Family Medicine Geriatric Medicine
DX: I10 Essential (primary) hypertension (principal); E55.9 Vitamin D deficiency, unspecified
CPT/HCPCS: 36415; 80053; 82306; 84443; 85025

== ENCOUNTER 2025-01-18 16:00 | Outpatient (RCR) | payer MEDICARE, OTHER, SELFPAY ==
--- NOTE | 2024-12-24 09:57 | HP.PTEVAL ---
Patient's Visit Information Visit Information Visit Information: JUVE ROLAND is a 74 year old M referred to Physical Therapy by Dr. Miki Collazo MD with a diagnosis of IMBALANCE. Date of Evaluation: 12/24/24 Physical Therapist: Garth Waite, PT, Cert MDT, OCS Visit Plan Frequency: 2x /Week Duration: 4 Weeks Plan: -MONITOR HR PT INTERVENTIONS HIGH LEVEL BALANCE PROGRAM ,ENDURANCE PROGRAM ,BLE STRENGTHENING AND FUNCTIONAL STRENGTHENING Subjective Subjective: This 74 y/o male presents to physical therapy with decrease balance. Patient seen DR on routine visit every 6 months and c/o imbalance when walking. Patient reports occasional dizziness when getting. Patient reports no falls. Patient denies nausea/tinnitus . Patient does report irregular heart beat to raquel 30 's and increase [address] talked about a pacemaker. Patient denies pain but has knee and shoulder pain but injections last was for hips. Patient sleeping okay. Patient comorbities influences condition. [place] 3 [place] with rails with walk in shower. Patient condition affects QOL and function. Patient goals to improve balance . SOCIAL: VOCATION: retired Objective Objective: POSTURE: WFL GAIT: reciprocal pattern STAIRS : ascend/descend alternating with rail MMT: 4/5 quads/hams/hip flexion ,hip abd 4-/5 ,ankle 4/5 FLEXABILITY: hamstrings min tight SLS: unable needs UE support Balance/Special Test Scores Functional Gait Assessment Score: 24 % Disability: 20.0000 CATSIB Score (Max score 120 seconds): 93 Lower Extremity Functional Score: 49 30 Second Chair Rise Test Seconds: 12 Goals Goal 1:: Patient to be I with balance program Goal Time Frame: 4-6 Weeks Goal 2:: Patient to improve CATSIB by 5 points to improve balance Goal Time Frame: 4-6 Weeks Goal 3:: Patient to improve 30 sec sit-stand by 3-5 reps to improve functional strength Goal Time Frame: 4-6 Weeks Goal 4:: Patient to improve functional gait assessment by 5 points to improve balance and gait Goal Time Frame: 4-6 Weeks Goal 5:: Patient to improve LFES score by 5 -10 points to improve QOL Goal Time Frame: 4-6 Weeks Rehabilitation Potential Physical Therapy Diagnosis: This patient has deficits with balance deficits with CATSIB /functional gait assessment does have irregular beat thus benefir from skileld PT Rehabilitation Potential: Good Anticipated Interventions Patient/Client Instruction: Educate patient on: Condition and Plan of Care For the Purpose of:: To improve muscle performance and motor function, To improve ability to perform ADL's, To increase tolerance to activity/condition/position, To improve ability of physical actions for home/community/work/leisure, To improve gait and locomotor functions, To increase flexibility/ROM, To improve endurance, To improve balance and Other Other: BALANCE Therapeutic Exercise to Include: Strength training, Endurance training, Balance training, Gait and locomotor training and Active ROM Comment: BLE For the Purpose of:: To improve muscle performance and motor function, To increase tolerance to activity/condition/position, To improve ability of physical actions for home/community/work/leisure, To improve gait and locomotor functions, To increase flexibility/ROM, To improve endurance and To improve balance Text: Thank you for the opportunity to evaluate your patient. For Medicare and Medicare HMO plans, please review the plan of care and approve it. It will need to be FAXED BACK to us at [phone] for Medicare purposes. For Medicare only, by signing this I certify the plan of care. Please let me know if there are questions or concerns regarding this plan of care. Physician Signature: Date:
--- NOTE | 2025-03-29 17:00 | HP.PT.NRP ---
Patient Information Patient Information: JUVE ROLAND was seen in my office for initial evaluation on 12/24/24. The following Plan of Care was established for this patient: POC Established Initial Frequency: 2x /Week Initial Duration: 4 Weeks Anticipated Interventions Patient/Client Instruction: Educate patient on: Condition and Plan of Care For the Purpose of:: To improve muscle performance and motor function, To improve ability to perform ADL's, To increase tolerance to activity/condition/position, To improve ability of physical actions for home/community/work/leisure, To improve gait and locomotor functions, To increase flexibility/ROM, To improve endurance, To improve balance and Other Other: BALANCE Therapeutic Exercise to Include: Strength training, Endurance training, Balance training, Gait and locomotor training and Active ROM For the Purpose of:: To improve muscle performance and motor function, To increase tolerance to activity/condition/position, To improve ability of physical actions for home/community/work/leisure, To improve gait and locomotor functions, To increase flexibility/ROM, To improve endurance and To improve balance Last Seen Last Seen: This patient was last seen in our office . Pertinent comments regarding their Physical therapy will appear below: This patient was seen for PT for balance deficits thus d/c to HEP At this point I will be discontinuing this patient from physical therapy. I would be happy to see this patient again in the future if found appropriate by the physician. Thank you! Garth Waite, PT, Cert MDT, OCS Balance/Gait/Functional tests Balance/Special Test Scores Functional Gait Assessment Score: 24 % Disability: 20.0000 CATSIB Score (Max score 120 seconds): 93 Lower Extremity Functional Score: 49 30 Second Chair Rise Test Seconds: 12
== END 2025-01-18 19:00 | disposition home or self-care (01) ==
LOC: PT 16:00
PROVIDERS: PCP Family Medicine Geriatric Medicine; Referring Provider Family Medicine Geriatric Medicine; Visit Provider Family Medicine Geriatric Medicine
DX: R26.89 Other abnormalities of gait and mobility (principal)
CPT/HCPCS: 97110; 97162

== ENCOUNTER → 2025-06-09 | Outpatient (CLI) | payer MEDICARE, OTHER, SELFPAY ==
[2025-06-09 10:37] LABS: Hematocrit 48.0 % (40-54); Hemoglobin 15.9 g/dL (13.0-16.5); Immature Granulocytes Count 0.020 X10^3/uL (0.0-0.0); Mean Corp Hgb Conc 33.1 g/dL (32-36); Mean Corpuscular Volume 86.2 fL (80-94); Mean Platelet Vol. 10.8 fl (6.2-12.0); NRBC Flagged by Analyzer 0 % (0-5); Platelet Count 254 K/mm3 (150-450); RBC Distribution Width CV 12.3 % (11.6-14.6); RBC Distribution Width SD 38.8 fl (35.1-43.9); Red Blood Count 5.57 M/mm3 (4.6-6.2); White Blood Count 5.4 K/mm3 (4.4-11.0)
[2025-06-09 11:40] LABS: AST(SGOT) 43 U/L (<=37); Alanine Aminotransfer ALT/SGPT 26 U/L (<=46); Albumin, Serum 4.4 g/dL (3.4-4.8); Alkaline Phosphatase 91 U/L (40-129); Anion Gap 8 (5-15); BUN 14 mg/dL (4-19); BUN/Creat Ratio 13.5 RATIO (10-20); Calcium,Total 10.0 mg/dL (7.6-11.0); Carbon Dioxide 26.2 mmol/L (21.0-32.0); Chloride 105 mmol/L (98-108); Globulin 2.6 g/dL (2.2-4.2); Glucose 98 mg/dL (70-99); Potassium 4.2 mmol/L (3.3-5.1); Vitamin D,25 Hydroxy 26.0 ng/mL (30-100)
[2025-06-09 17:45] LABS: Xtra Tube Kwok EXTRA TUBE
== END | disposition home or self-care (01) ==
LOC: POLAB3 09:45
PROVIDERS: PCP Family Medicine Geriatric Medicine; Visit Provider Family Medicine Geriatric Medicine
DX: I10 Essential (primary) hypertension (principal); E55.9 Vitamin D deficiency, unspecified
CPT/HCPCS: 36415; 80053; 82306; 84443; 85025